=== PATIENT | female | born 1980 | race African-American/Black ===

== ENCOUNTER 2017-12-20 13:11 | Emergency (ER) | payer SELFPAY ==
--- NOTE | 2017-12-20 15:19 | RAD REPORT ---
EXAM DESCRIPTION: Arnie Single View12/20/2017 2:41 pm CLINICAL HISTORY: Chest pain COMPARISON: 2010 FINDINGS: The lungs appear clear of acute infiltrate. The heart is normal size IMPRESSION: No acute abnormalities displayed
[2017-12-20 15:26] LABS: Absolute Lymphocytes (CBC) 2.2 K/uL (0.7-4.9); Absolute Monocytes 0.8 K/uL (0.1-1.3); Absolute Neutrophil 5.3 K/uL (1.8-8.0); Basophils % 0.7 % (0-1.3); Eosinophils % 1.6 % (0-4.4); Hematocrit 40.9 % (36.0-45.0); Lymphocytes % 26.2 % (15.3-44.8); MCV 95.9 fL (80-100); MPV 9.6 fL (7.6-11.3); Monocytes % 9.4 % (3.3-12.3); RBC Red Blood Cell Count 4.26 M/uL (3.86-4.86)
[2017-12-20 15:37] LABS: BUN Blood Urea Nitrogen 11 mg/dL (7-18); Bicarbonate 27 mmol/L (21-32); Glucose Level 89 mg/dL (74-106); Potassium 3.5 mmol/L (3.5-5.1); Sodium Level 141 mmol/L (136-145); Troponin (Emerg Dept Use Only) < 0.02 ng/mL (0.0-0.045)
--- NOTE | 2017-12-20 15:39 | EKG ---
Test Date: 2017-12-20 Test Time: 13:38:41 Mri Specialist: EMILY MEASUREMENT RESULTS: Intervals: Rate: 69 NM: 152 QRSD: 82 QT: 396 QTc: 424 [place]: P: 44 NM: 152 QRS: 80 T: -48 INTERPRETIVE STATEMENTS: Normal sinus rhythm with sinus arrhythmia T wave abnormality, consider inferolateral ischemia Abnormal ECG Compared to ECG 12/02/2013 12:03:03 No significant changes Electronically Signed On 12-20-17 15:38:18 CDT by Vasquez Morton
--- NOTE | 2017-12-20 15:50 | EDPHYS ---
Physician Documentation [facility] Name: Jaky Mcconnell Age: 37 yrs Sex: Female : 1980 Arrival Date: 12/20/2017 Time: 13:14 Bed 16 Private MD: None, None ED Physician Naun Enriquez HPI: 12/20 19:36 This 37 yrs old Black Female presents to ER via Ambulatory with complaints of Chest gs Pain. 19:36 The patient or guardian reports chest pain that is located primarily in the anterior gs chest wall, right. The pain does not radiate. Associated signs and symptoms: Pertinent negatives: shortness of breath. The chest pain is described as sharp. Duration: The patient or guardian reports a single episode, that is still ongoing, but improving. Modifying factors: the symptoms are aggravated by deep breath. Severity of pain: At its worst the pain was moderate in the emergency department the pain has improved mildly. 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 - Social history:: Smoking status: Patient uses tobacco products, smokes one-half pack cigarettes per day. - Ebola Screening: : No symptoms or risks identified at this time. ROS: 19:36 All other systems are negative. gs Exam: 19:45 Head/Face: Normocephalic, atraumatic. Eyes: Pupils equal round and reactive to light, gs extra-ocular motions intact. Lids and lashes normal. Conjunctiva and sclera are non-icteric and not injected. Cornea within normal limits. Periorbital areas with no swelling, redness, or edema. ENT: Nares patent. No nasal discharge, no septal abnormalities noted. Tympanic membranes are normal and external auditory canals are clear. Oropharynx with no redness, swelling, or masses, exudates, or evidence of obstruction, uvula midline. Mucous membranes moist. Neck: Trachea midline, no thyromegaly or masses palpated, and no cervical lymphadenopathy. Supple, full range of motion without nuchal rigidity, or vertebral point tenderness. No Meningismus. Chest/axilla: Normal chest wall appearance and motion. Nontender with no deformity. No lesions are appreciated. Cardiovascular: Regular rate and rhythm with a normal S1 and S2. No gallops, murmurs, or rubs. Normal PMI, no JVD. No pulse deficits. Respiratory: Lungs have equal breath sounds bilaterally, clear to auscultation and percussion. No rales, rhonchi or wheezes noted. No increased work of breathing, no retractions or nasal flaring. Abdomen/GI: Soft, non-tender, with normal bowel sounds. No distension or tympany. No guarding or rebound. No evidence of tenderness throughout. Back: No spinal tenderness. No costovertebral tenderness. Full range of motion. Skin: Warm, dry with normal turgor. Normal color with no rashes, no lesions, and no evidence of cellulitis. MS/ Extremity: Pulses equal, no cyanosis. Neurovascular intact. Full, normal range of motion. Neuro: Awake and alert, GCS 15, oriented to person, place, time, and situation. Cranial nerves II-XII grossly intact. Motor strength 5/5 in all extremities. Sensory grossly intact. Cerebellar exam normal. Normal gait. 19:45 Constitutional: The patient appears alert, awake. 19:45 ECG was reviewed by the Attending Physician. Vital Signs: 13:44 BP 151 / 83; Pulse 67; Resp 16; Temp 97.4(TE); Pulse Ox 99% on R/A; Weight 96.62 kg; ph Height 5 ft. 8 in. (172.72 cm); Pain 8/10; 15:00 BP 153 / 83; Pulse 60; Resp 18; Pulse Ox 99% on R/A; ph 16:35 BP 162 / 92; Pulse 61; Resp 18; Temp 97.8; Pulse Ox 99% on R/A; Pain 6/10; ph 13:44 Body Mass Index 32.39 (96.62 kg, 172.72 cm) ph MDM: 14:06 Patient medically screened. 15:49 Counseling: I had a detailed discussion with the patient and/or guardian regarding: the gs historical points, exam findings, and any diagnostic results supporting the discharge/admit diagnosis, the presence of at least one elevated blood pressure reading (>120/80) during this emergency department visit, lab results, radiology results, the need for outpatient follow up. Special discussion: I have referred the patient to see his PCP for further evaluation of high blood pressure. 19:45 Differential diagnosis: coronary artery disease chest wall pain, pleurisy, pulmonary gs embolus. Data reviewed: vital signs, nurses notes. Response to treatment: the patient's symptoms have resolved after treatment, the patient's pain is gone, and as a result, I will discharge patient. 12/20 14:07 Order name: Basic Metabolic Panel; Complete Time: 15:45 gs 12/20 14:07 Order name: CBC with Diff; Complete Time: 15:45 gs 12/20 14:07 Order name: Troponin (emerg Dept Use Only); Complete Time: 15:45 gs 12/20 14:07 Order name: XRAY Chest (1 view); Complete Time: 15:20 gs 12/20 14:07 Order name: D-Dimer; Complete Time: 15:45 gs 12/20 13:47 Order name: EKG; Complete Time: 13:47 gs 12/20 13:47 Order name: EKG - Nurse/Tech; Complete Time: 13:49 gs 12/20 14:07 Order name: Cardiac monitoring; Complete Time: 15:38 gs 12/20 14:07 Order name: IV Saline Lock; Complete Time: 15:38 gs 12/20 14:07 Order name: Labs collected and sent; Complete Time: 15:38 gs 12/20 14:07 Order name: O2 Per Protocol; Complete Time: 15:38 gs 12/20 14:07 Order name: O2 Sat Monitoring; Complete Time: 15:38 gs EC:45 Rate is 69 beats/min. Rhythm is regular. TX interval is normal. QRS interval is normal. gs QT interval is normal. No Q waves. T waves are Inverted in leads II, III, aVF, V4, V5, V6. Clinical impression: Abnormal EKG without significant change. No change from previous ECG on December 02, 2013. Interpreted by me. Administered Medications: 06:30 Drug: Zofran 4 mg Route: PO; ph 16:33 Follow up: Response: No adverse reaction; Nausea is decreased ph 16:11 Drug: TORadol 30 mg Route: IVP; Site: left antecubital; ph 16:33 Follow up: Response: No adverse reaction; Pain is decreased ph Disposition: 12/20/17 15:49 Discharged to Home. Impression: Chest pain, unspecified. - Condition is Stable. - Discharge Instructions: Nonspecific Chest Pain, Managing Your Hypertension. - Work release form, Medication Reconciliation Form, Thank You Letter, Antibiotic Education, Prescription Opioid Use form. - Follow up: Private Physician; When: 2 - 3 days; Reason: Re-evaluation by your physician. Signatures: Dispatcher [employer] Judy Smart RN RN iw Lana Zarate RN RN ph Naun Enriquez MD MD gs Corrections: (The following items were deleted from the chart) 16:39 15:49 12/20/2017 15:49 Discharged to Home. Impression: Chest pain, unspecified. iw Condition is Stable. Forms are Medication Reconciliation Form, Thank You Letter, Antibiotic Education, Prescription Opioid Use. Follow up: Private Physician; When: 2 - 3 days; Reason: Re-evaluation by your physician. gs
--- NOTE | 2017-12-20 15:50 | ER ---
Nurse's Notes [facility] Name: Jaky Mcconnell Age: 37 yrs Sex: Female : 1980 Arrival Date: 12/20/2017 Time: 13:14 Bed 16 Private MD: None, None Diagnosis: Chest pain, unspecified Presentation: 12/20 13:43 Presenting complaint: Patient states: Reports R sided chest pain that began at around ph 1030, worse w/ movement and deep breathing, denies N/V. Transition of care: patient was not received from another setting of care. Onset of symptoms was December 20, 2017. Risk Assessment: Do you want to hurt yourself or someone else? Patient reports no desire to harm self or others. Initial Sepsis Screen: Does the patient meet any 2 criteria? No. Patient's initial sepsis screen is negative. Does the patient have a suspected source of infection? No. Patient's initial sepsis screen is negative. Care prior to arrival: None. 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 - Social history:: Smoking status: Patient uses tobacco products, smokes one-half pack cigarettes per day. - Ebola Screening: : No symptoms or risks identified at this time. Screenin:13 Abuse screen: Denies threats or abuse. Denies injuries from another. Nutritional ph screening: No deficits noted. Tuberculosis screening: No symptoms or risk factors identified. Fall Risk None identified. Assessment: 14:00 General: Appears in no apparent distress. uncomfortable, obese, well groomed, Behavior ph is calm, cooperative, appropriate for age. Pain: Complains of pain in anterior aspect of right upper chest and right breast Pain does not radiate. Pain currently is 8 out of 10 on a pain scale. Pain began at 1030. Neuro: Level of Consciousness is awake, alert, obeys commands, Oriented to person, place, time, situation. Cardiovascular: Reports chest pain, shortness of breath, Denies lightheadedness, nausea, vomiting, Capillary refill < 3 seconds Patient's skin is warm and dry. Rhythm is regular Chest pain is located in right anterior chest wall is aggravated by activity, breathing. Respiratory: Airway is patent Respiratory effort is even, unlabored, Respiratory pattern is regular, symmetrical, Denies pain with respiration, pain with cough, pain with movement. Derm: Skin is intact, is healthy with good turgor, Skin is pink, warm \T\ dry. Musculoskeletal: Circulation, motion, and sensation intact. Range of motion: intact in all extremities. 15:15 Reassessment: Patient appears in no apparent distress at this time. Patient and/or ph family updated on plan of care and expected duration. Pain level reassessed. Patient is alert, oriented x 3, equal unlabored respirations, skin warm/dry/pink. Pt resting quietly, awaiting lab results. 16:25 Reassessment: Patient appears in no apparent distress at this time. Patient and/or ph family updated on plan of care and expected duration. Pain level reassessed. Patient is alert, oriented x 3, equal unlabored respirations, skin warm/dry/pink. Upon d/c pt began to c/o nausea, ERP notified, see MAR. Vital Signs: 13:44 BP 151 / 83; Pulse 67; Resp 16; Temp 97.4(TE); Pulse Ox 99% on R/A; Weight 96.62 kg; ph Height 5 ft. 8 in. (172.72 cm); Pain 8/10; 15:00 BP 153 / 83; Pulse 60; Resp 18; Pulse Ox 99% on R/A; ph 16:35 BP 162 / 92; Pulse 61; Resp 18; Temp 97.8; Pulse Ox 99% on R/A; Pain 6/10; ph 13:44 Body Mass Index 32.39 (96.62 kg, 172.72 cm) ph ED Course: 13:14 Patient arrived in ED. mr 13:14 None, None is Private Physician. mr 13:38 Naun Enriquez MD is Attending Physician. gs 13:42 Lana Zarate, RYLAN is Primary Nurse. ph 13:44 Triage completed. ph 13:45 Arm band placed on. ph 14:06 EKG done, by hospital laboratory technician. reviewed by Naun Enriquez MD. at1 14:37 X-ray completed. Portable x-ray completed in exam room. Patient tolerated procedure ml well. 14:41 XRAY Chest (1 view) In Process Unspecified. EDMS 14:45 Inserted saline lock: 22 gauge in left antecubital area, using aseptic technique. Blood ph collected. 15:14 Patient has correct armband on for positive identification. Bed in low position. Call ph light in reach. Side rails up X 1. quality assurance monitor body on. Pulse ox on. NIBP on. Warm blanket given. 15:14 Patient maintains SpO2 saturation greater than 95% on room air. ph 16:36 No provider procedures requiring assistance completed. IV discontinued, intact, ph bleeding controlled, No redness/swelling at site. Pressure dressing applied. Administered Medications: 06:30 Drug: Zofran 4 mg Route: PO; ph 16:33 Follow up: Response: No adverse reaction; Nausea is decreased ph 16:11 Drug: TORadol 30 mg Route: IVP; Site: left antecubital; ph 16:33 Follow up: Response: No adverse reaction; Pain is decreased ph Outcome: 15:49 Discharge ordered by . jalen 16:36 Discharged to home ambulatory. ph 16:36 Condition: good 16:36 Discharge instructions given to patient, Instructed on discharge instructions, follow ph up and referral plans. Demonstrated understanding of instructions, follow-up care. 16:39 Patient left the ED. iw Signatures: Dispatcher [employer] Mikala Molina Irene, RN RYLAN iw [place] Amanda, multimedia manager EKG Tat1 Lana Zarate RN RN ph EnriquezNaun da silva MD MD gs
[2017-12-20] MEDS ORDERED: KETOROLAC 30 MG/ML INJ ONE (16:11)
[2017-12-20] MEDS ORDERED: ONDANSETRON 4 MG (ODT) TAB ONE (16:29)
[2017-12-20 16:57] VITALS: O2SAT 99
[2017-12-20 16:59] VITALS: BP 162/92; TEMP 97.8
== END 2017-12-20 16:39 | disposition home or self-care (01) ==
LOC: ER 13:11
DX: R07.9 Chest pain, unspecified (principal); Z88.6 Allergy status to analgesic agent
CPT/HCPCS: 36415; 71045; 80048; 84484; 85025; 85379; 93005; 96374; 99285

== ENCOUNTER 2019-01-22 11:37 | Emergency (ER) | payer SELFPAY ==
--- NOTE | 2019-01-22 12:48 | RAD REPORT ---
EXAM DESCRIPTION: RAD - Chest Single View - 01/22/2019 12:33 pm CLINICAL HISTORY: CHEST PAIN Chest pain. COMPARISON: Chest Single View dated 12/20/2017; CHEST PA AND LAT 2 VIEW dated 01/03/2011 FINDINGS: Portable technique limits examination quality. The lungs are grossly clear. The heart is normal in size. No displaced fractures. IMPRESSION: No acute intrathoracic process suspected.
[2019-01-22 12:52] LABS: Absolute Lymphocytes (CBC) 1.8 K/uL (0.7-4.9); Basophils % 0.8 % (0-1.3); Lymphocytes % 21.8 % (15.3-44.8); RBC Red Blood Cell Count 4.28 M/uL (3.86-4.86)
[2019-01-22 12:54] LABS: Protime INR 1.05
[2019-01-22 13:05] LABS: ALT/SGPT 27 U/L (12-78); AST/SGOT 16 U/L (15-37); Albumin 3.7 g/dL (3.4-5.0); Alkaline Phosphatase 85 U/L (45-117); BUN Blood Urea Nitrogen 14 mg/dL (7-18); Bicarbonate 27 mmol/L (21-32); Bilirubin Direct < 0.1 mg/dL (0-0.2); Bilirubin Total 0.4 mg/dL (0.2-1.0); Glucose Level 80 mg/dL (74-106); Protein, Total 7.4 g/dL (6.4-8.2); Sodium Level 144 mmol/L (136-145); Troponin (Emerg Dept Use Only) < 0.02 ng/mL (0.0-0.045)
--- NOTE | 2019-01-22 13:43 | ER ---
Nurse's Notes [facility] Name: Jaky Mcconnell Age: 38 yrs Sex: Female : 1980 Arrival Date: 01/22/2019 Time: 11:44 Bed 16 Private MD: Diagnosis: Chest pain, unspecified Presentation: 01/22 11:55 Presenting complaint: Patient states: "I've been having chest pains for the longest, aj1 but today every time I move its a sharp pain and it stays for like 3 minutes and then it goes away but if I move again it comes back" Patient reports that she has been having these chest pains since her nephew in May. Transition of care: patient was not received from another setting of care. Onset of symptoms was May 2018. Risk Assessment: Do you want to hurt yourself or someone else? Patient reports no desire to harm self or others. Initial Sepsis Screen: Does the patient meet any 2 criteria? No. Patient's initial sepsis screen is negative. Does the patient have a suspected source of infection? No. Patient's initial sepsis screen is negative. Care prior to arrival: None. 11:55 Method Of Arrival: Ambulatory aj1 11:55 Acuity: JONNA 3 aj1 Triage Assessment: 11:58 General: Appears in no apparent distress. comfortable, Behavior is calm, cooperative, aj1 appropriate for age. Pain: Pain currently is 5 out of 10 on a pain scale. Aggravated by repositioning. Neuro: Level of Consciousness is awake, alert, obeys commands. Cardiovascular: Patient's skin is warm and dry. Respiratory: Airway is patent Respiratory effort is even, unlabored, Respiratory pattern is regular, symmetrical. 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 - Social history:: Smoking status: Patient uses tobacco products, smokes one-half pack cigarettes per day. - Ebola Screening: : Patient denies travel to an Ebola-affected area in the 21 days before illness onset. Screenin:25 Abuse screen: Denies threats or abuse. Nutritional screening: No deficits noted. em Tuberculosis screening: No symptoms or risk factors identified. Fall Risk None identified. Assessment: 12:25 General: Appears in no apparent distress. comfortable, Behavior is calm, cooperative, em Denies fever. Pain: Complains of pain in chest Pain does not radiate. Quality of pain is described as pressure, Pain began May. Neuro: Level of Consciousness is awake, alert, obeys commands, Oriented to person, place, time, situation, Appropriate for age. Cardiovascular: Heart tones S1 S2 present Capillary refill < 3 seconds Patient's skin is warm and dry. Respiratory: Airway is patent Respiratory effort is even, unlabored, Respiratory pattern is regular, symmetrical, Breath sounds are clear bilaterally. Denies cough. GI: Patient currently denies nausea, vomiting. Derm: Skin is intact, is healthy with good turgor, Skin is pink, warm \\T\\ dry. Musculoskeletal: Capillary refill < 3 seconds, Range of motion: intact in all extremities. 13:00 Reassessment: Patient appears in no apparent distress at this time. Patient and/or em family updated on plan of care and expected duration. Pain level reassessed. Patient is alert, oriented x 3, equal unlabored respirations, skin warm/dry/pink. 14:00 Reassessment: Patient appears in no apparent distress at this time. Patient and/or em family updated on plan of care and expected duration. Pain level reassessed. Patient is alert, oriented x 3, equal unlabored respirations, skin warm/dry/pink. Patient denies pain at this time. Patient states feeling better. Patient states symptoms have improved. Vital Signs: 11:58 BP 146 / 98; Pulse 76; Resp 18; Temp 97.0; Pulse Ox 100% on R/A; Weight 96.62 kg (R); aj1 Height 5 ft. 8 in. (172.72 cm) (R); Pain 5/10; 13:00 BP 156 / 94; Pulse 73; Resp 18; Pulse Ox 99% on R/A; Pain 1/10; em 11:58 Body Mass Index 32.39 (96.62 kg, 172.72 cm) aj1 ED Course: 11:44 Patient arrived in ED. mr 11:57 Triage completed. aj1 11:58 Arm band placed on Patient placed in an exam room. aj1 11:59 Jayden Clarke NP is PHCP. pm1 11:59 Alberto Wallace MD is Attending Physician. pm1 12:02 Vance Arredondo LVN is Primary Nurse. em 12:25 Patient has correct armband on for positive identification. Placed in gown. Bed in low em position. Call light in reach. Adult w/ patient. personnel monitor on. Pulse ox on. NIBP on. 12:25 Initial lab(s) drawn, by me, sent to lab. Inserted saline lock: 22 gauge in left em antecubital area, using aseptic technique. Blood collected. Patient maintains SpO2 saturation greater than 95% on room air. 12:33 XRAY Chest (1 view) In Process Unspecified. EDMS 14:10 No provider procedures requiring assistance completed. IV discontinued, intact, em bleeding controlled, No redness/swelling at site. Pressure dressing applied. Administered Medications: 14:00 Drug: predniSONE 60 mg Route: PO; em Outcome: 13:42 Discharge ordered by MD. pm1 14:10 Discharged to home ambulatory, with family. em 14:10 Condition: good 14:10 Discharge instructions given to patient, family, Instructed on discharge instructions, follow up and referral plans. no drinking with medication, no driving heavy equipment, medication usage, Demonstrated understanding of instructions, follow-up care, medications, Prescriptions given X 2. 14:11 Patient left the ED. em Signatures: Dispatcher [employer] Mariah Claros RN RN aj1 Cynthia Orellana mr Vance Arredondo LVN LVN em Jayden Clarke NP [employer] pm1
--- NOTE | 2019-01-22 13:43 | EDPHYS ---
Physician Documentation [facility] Name: Jaky Mcconnell Age: 38 yrs Sex: Female : 1980 Arrival Date: 01/22/2019 Time: 11:44 Bed 16 Private MD: ED Physician Alberto Wallace HPI: 01/22 13:05 This 38 yrs old Black Female presents to ER via Ambulatory with complaints of Chest pm1 Pain. 13:05 The patient or guardian reports chest pain that is located primarily in the anterior pm1 aspect of left upper chest. The pain does not radiate. Associated signs and symptoms: Pertinent negatives: abdominal pain, cough, diaphoresis, dizziness, headache, nausea, shortness of breath, vomiting. The chest pain is described as sharp. Duration: The patient or guardian reports multiple episodes, that have now resolved, the episodes last approximately 3 minute(s). Modifying factors: the symptoms are aggravated by deep breath, emotionally stressful situations, ever since of grandson in May of this year. Severity of pain: in the emergency department the pain has resolved. The patient has not experienced similar symptoms in the past. Chest pain today onset this AM. 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 - Social history:: Smoking status: Patient uses tobacco products, smokes one-half pack cigarettes per day. - Ebola Screening: : Patient denies travel to an Ebola-affected area in the 21 days before illness onset. ROS: 13:05 Constitutional: Negative for fever, chills, and weight loss, Eyes: Negative for injury, pm1 pain, redness, and discharge, ENT: Negative for injury, pain, and discharge, Neck: Negative for injury, pain, and swelling. 13:05 Respiratory: Negative for shortness of breath, cough, wheezing, and pleuritic chest pain, Abdomen/GI: Negative for abdominal pain, nausea, vomiting, diarrhea, and constipation, Back: Negative for injury and pain, MS/Extremity: Negative for injury and deformity, Skin: Negative for injury, rash, and discoloration, Neuro: Negative for headache, weakness, numbness, tingling, and seizure. 13:05 Cardiovascular: Positive for chest pain, Negative for edema, palpitations. Exam: 13:05 Constitutional: This is a well developed, well nourished patient who is awake, alert, pm1 and in no acute distress. Head/Face: Normocephalic, atraumatic. Neck: Trachea midline, no thyromegaly or masses palpated, and no cervical lymphadenopathy. Supple, full range of motion without nuchal rigidity, or vertebral point tenderness. No Meningismus. Cardiovascular: Regular rate and rhythm with a normal S1 and S2. No gallops, murmurs, or rubs. Normal PMI, no JVD. No pulse deficits. Respiratory: Lungs have equal breath sounds bilaterally, clear to auscultation and percussion. No rales, rhonchi or wheezes noted. No increased work of breathing, no retractions or nasal flaring. Abdomen/GI: Soft, non-tender, with normal bowel sounds. No distension or tympany. No guarding or rebound. No evidence of tenderness throughout. Back: No spinal tenderness. No costovertebral tenderness. Full range of motion. Skin: Warm, dry with normal turgor. Normal color with no rashes, no lesions, and no evidence of cellulitis. MS/ Extremity: Pulses equal, no cyanosis. Neurovascular intact. Full, normal range of motion. 13:05 Chest/axilla: Inspection: normal, Palpation: tenderness, of the focal point anterior aspect of left upper chest, that totally reproduces the patient's complaints, also reproduced with deep breathing in the same area. Vital Signs: 11:58 BP 146 / 98; Pulse 76; Resp 18; Temp 97.0; Pulse Ox 100% on R/A; Weight 96.62 kg (R); aj1 Height 5 ft. 8 in. (172.72 cm) (R); Pain 5/10; 13:00 BP 156 / 94; Pulse 73; Resp 18; Pulse Ox 99% on R/A; Pain 1/10; em 11:58 Body Mass Index 32.39 (96.62 kg, 172.72 cm) aj1 MDM: 12:00 Patient medically screened. pm1 13:40 Data reviewed: vital signs. Data interpreted: Pulse oximetry: on room air is 100 %. pm1 Interpretation: normal. Counseling: I had a detailed discussion with the patient and/or guardian regarding: the historical points, exam findings, and any diagnostic results supporting the discharge/admit diagnosis, lab results, radiology results, the need for outpatient follow up, to return to the emergency department if symptoms worsen or persist or if there are any questions or concerns that arise at home. 14:00 ED course: Patient with possible pleurisy and anxiety related to stress of of pm1 grandson. Will give the patient steroids since she cannot take NSAIDs and ativan for anxiety and grieving. 01/22 12:01 Order name: Basic Metabolic Panel; Complete Time: 13:19 pm1 01/22 12:01 Order name: CBC with Diff; Complete Time: 13:02 pm1 01/22 12:01 Order name: LFT's; Complete Time: 13:19 pm1 01/22 12:01 Order name: Magnesium; Complete Time: 13:19 pm1 01/22 12:01 Order name: PT-INR; Complete Time: 13:02 pm1 01/22 12:01 Order name: Troponin (emerg Dept Use Only); Complete Time: 13:19 pm1 01/22 12:01 Order name: XRAY Chest (1 view); Complete Time: 13:02 pm1 01/22 12:01 Order name: EKG; Complete Time: 12:01 pm1 01/22 12:01 Order name: Cardiac monitoring; Complete Time: 12:25 pm1 01/22 12:01 Order name: EKG - Nurse/Tech; Complete Time: 12:25 pm1 01/22 12:01 Order name: IV Saline Lock; Complete Time: 12:25 pm01/22 13:58 Order name: Urine Dipstick--Ancillary (enter results) nc 01/22 13:58 Order name: Urine --Ancillary (enter results) nc 01/22 12:01 Order name: Labs collected and sent; Complete Time: 12:25 pm1 01/22 12:01 Order name: O2 Per Protocol; Complete Time: 12:25 pm1 01/22 12:01 Order name: O2 Sat Monitoring; Complete Time: 12:25 pm01/22 12:01 Order name: Urine Test (obtain specimen); Complete Time: 14:00 pm1 Administered Medications: 14:00 Drug: predniSONE 60 mg Route: PO; em Disposition: 14:52 Co-signature as Attending Physician, Alberto Wallace MD. rn Disposition: 01/22/19 13:42 Discharged to Home. Impression: Chest pain, unspecified. - Condition is Stable. - Discharge Instructions: Nonspecific Chest Pain, Stress and Stress Management. - Prescriptions for Medrol (Fam) 4 mg Oral Tablets, Dose Pack - take 1 tablet by ORAL route as directed - follow package instructions; 1 packet. Ativan 0.5 mg Oral Tablet - take 1 tablet by ORAL route every 8 hours As needed; 10 tablet. - Work release form, Family Work Release, Medication Reconciliation Form, Thank You Letter, Antibiotic Education, Prescription Opioid Use form. - Follow up: Emergency Department; When: As needed; Reason: Worsening of condition. Follow up: Private Physician; When: 2 - 3 days; Reason: Recheck today's complaints, Continuance of care, Re-evaluation by your physician. - Problem is new. - Symptoms have improved. Signatures: Dispatcher [employer] Mariah Claros RN RN aj1 Vance Arredondo, CONTINUOUS IMPROVEMENT COORDINATOR CONTINUOUS IMPROVEMENT COORDINATOR Alberto Wade MD MD rn Marinas, Patrick, THAO PUTTYING AND CALKING SUPERVISOR pm1 Corrections: (The following items were deleted from the chart) 14:11 13:42 01/22/2019 13:42 Discharged to Home. Impression: Chest pain, unspecified. em Condition is Stable. Forms are Medication Reconciliation Form, Thank You Letter, Antibiotic Education, Prescription Opioid Use. Follow up: Emergency Department; When: As needed; Reason: Worsening of condition. Follow up: Private Physician; When: 2 - 3 days; Reason: Recheck today's complaints, Continuance of care, Re-evaluation by your physician. Problem is new. Symptoms have improved. pm1 17:35 13:05 Modifying factors: the symptoms are aggravated by emotionally stressful pm1 situations, ever since of grandson in May of this year. pm1
[2019-01-22] MEDS ORDERED: predniSONE 20 MG TAB ONE (13:53)
[2019-01-22 14:23] VITALS: TEMP 97
[2019-01-22 14:28] VITALS: BP 156/94; O2SAT 99
[2019-01-22 14:30] LABS: Urine Blood NEGATIVE (NEG); Urine Glucose NEGATIVE (NEG); Urine Protein NEGATIVE (NEG)
--- NOTE | 2019-01-23 07:52 | EKG ---
Test Date: 2019-01-22 Test Time: 12:24:41 Wash Rack Operator: KATHRINE MEASUREMENT RESULTS: Intervals: Rate: 64 TN: 154 QRSD: 80 QT: 384 QTc: 396 Rodman: P: 42 TN: 154 QRS: 84 T: -54 INTERPRETIVE STATEMENTS: Normal sinus rhythm T wave abnormality, consider inferolateral ischemia Abnormal ECG Compared to ECG 12/20/2017 13:38:41 Sinus arrhythmia no longer present T-wave abnormality still present Possible ischemia still present Electronically Signed On 01-23-19 07:51:51 CDT by Vasquez Morton
== END 2019-01-22 14:11 | disposition home or self-care (01) ==
LOC: ER 11:37
DX: R07.9 Chest pain, unspecified (principal); F17.210 Nicotine dependence, cigarettes, uncomplicated; I10 Essential (primary) hypertension; Z88.6 Allergy status to analgesic agent
CPT/HCPCS: 36415; 71045; 80048; 80076; 81003; 81025; 83735; 84484; 85025; 85610; 93005; 99285; J7512

== ENCOUNTER 2020-08-03 18:41 | Emergency (ER) | payer SELFPAY ==
[2020-08-03] MEDS ORDERED: PHENYLEPHRINE 0.5% NOSE 15ML NAS ONE (20:19)
--- NOTE | 2020-08-03 21:34 | EDPHYS ---
Physician Documentation [facility] Name: Jaky Mcocnnell Age: 40 yrs Sex: Female : 1980 Arrival Date: 08/03/2020 Time: 18:45 Bed 5 Private MD: ED Physician Octavio Carbajal HPI: 08/03 19:36 This 40 yrs old Black Female presents to ER via EMS with complaints of Nose Bleed. pm1 19:36 The patient presents with a nose bleed, occurred from an unknown cause, that is pm1 continuous causative factors include: unknown, and the bleeding is not resolved and continues in ER. Onset: The symptoms/episode began/occurred. 19:36 Modifying factors: The symptoms are alleviated by nothing. Associated signs and pm1 symptoms: Loss of consciousness: the patient experienced no loss of consciousness, Pertinent negatives: chest pain, shortness of breath. Severity of symptoms: in the emergency department the symptoms are unchanged. The patient has not experienced similar symptoms in the past. The patient has not recently seen a physician. Historical: - Allergies: 18:56 Aspirin; em - PMHx: 18:56 Hypertension; em - PSHx: 18:56 ; em - Immunization history:: Adult Immunizations up to date. - Social history:: Smoking status: Patient reports the use of cigarette tobacco products, smokes one pack cigarettes per day. ROS: 19:36 Constitutional: Negative for fever, chills, and weight loss, Eyes: Negative for injury, pm1 pain, redness, and discharge. 19:36 Cardiovascular: Negative for chest pain, palpitations, and edema, Respiratory: Negative for shortness of breath, cough, wheezing, and pleuritic chest pain, Abdomen/GI: Negative for abdominal pain, nausea, vomiting, diarrhea, and constipation, Back: Negative for injury and pain, MS/Extremity: Negative for injury and deformity, Skin: Negative for injury, rash, and discoloration, Neuro: Negative for headache, weakness, numbness, tingling, and seizure. 19:36 ENT: Positive for nose bleed, Negative for sinus congestion, sinus pain, sore throat. Exam: 19:36 Constitutional: This is a well developed, well nourished patient who is awake, alert, pm1 and in no acute distress. Head/Face: Normocephalic, atraumatic. Eyes: Pupils equal round and reactive to light, extra-ocular motions intact. Lids and lashes normal. Conjunctiva and sclera are non-icteric and not injected. Cornea within normal limits. Periorbital areas with no swelling, redness, or edema. 19:36 Skin: Warm, dry with normal turgor. Normal color with no rashes, no lesions, and no evidence of cellulitis. MS/ Extremity: Pulses equal, no cyanosis. Neurovascular intact. Full, normal range of motion. 19:36 ENT: Nose: bleeding, is noted from both nares, anterior bleeding from left nare at 3 o'clock and anterior bleeding from right nare at 4 o'clock . 19:36 Cardiovascular: Exam negative for acute changes, Rate: normal, Rhythm: regular, Pulses: no pulse deficits are appreciated. 19:36 Cardiovascular: normotensive on monitor. 19:36 Respiratory: Exam negative for acute changes, respiratory distress, shortness of breath. 19:36 Neuro: Exam negative for acute changes, Orientation: is normal, Mentation: is normal, Motor: is normal, moves all fours. Vital Signs: 18:53 BP 121 / 80; Pulse 83; Resp 18; Temp 98.3(O); Pulse Ox 100% on R/A; Weight 97.52 kg; em Height 5 ft. 4 in. (162.56 cm); Pain 0/10; 20:59 BP 119 / 83; Pulse 76; Resp 16 S; Pulse Ox 100% on R/A; ad5 21:30 BP 120 / 80; Pulse 70; Resp 18; Pulse Ox 98% ; ea 18:53 Body Mass Index 36.90 (97.52 kg, 162.56 cm) em MDM: 19:31 Patient medically screened. pm1 21:10 ED course: Patient with nasal bleeding continuing from the left side despite pressure pm1 and yaya synephrine for the past 1 hour. Placed 4.5 rhino rocket to left nare and bleeding stopped. 21:31 ED course: Observed patient after placing left rhino rocket to see if right nare pm1 bleeding would stop. Patient's right nare with continued bleeding. Placed 4.5 rhino rocket to right nare and bleeding has been stopped. 21:32 Data reviewed: vital signs. Data interpreted: Pulse oximetry: on room air is 100 %. pm1 Interpretation: normal. 21:32 Counseling: I had a detailed discussion with the patient and/or guardian regarding: the pm1 historical points, exam findings, and any diagnostic results supporting the discharge/admit diagnosis, the need for outpatient follow up, for definitive care, an ENT specialist, to return to the emergency department if symptoms worsen or persist or if there are any questions or concerns that arise at home. Administered Medications: 20:14 Drug: Yaya-Synephrine (phenylephrine) [place] 0.5 % 2 sprays Route: Intranasal; Site: both ea nares; 21:42 Drug: traMADol 50 mg Route: PO; ea 21:47 Follow up: Response: Medication administered at discharge. ea Disposition: 08/03/20 21:33 Discharged to Home. Impression: Epistaxis. - Condition is Stable. - Discharge Instructions: Nosebleed, Adult. - Prescriptions for Augmentin 875- 125 mg Oral Tablet - take 1 tablet by ORAL route every 12 hours for 10 days; 20 tablet. Tramadol 50 mg Oral Tablet - take 1 tablet by ORAL route every 8 hours as needed; 12 tablet. - Work release form, Medication Reconciliation Form, Thank You Letter, Antibiotic Education, Prescription Opioid Use form. - Follow up: Emergency Department; When: As needed; Reason: Worsening of condition. Follow up: Macy Tang MD; When: 2 - 3 days; Reason: Recheck today's complaints, Continuance of care, Re-evaluation by your physician. - Problem is new. - Symptoms have improved. Addendum: 08/05/2020 09:59 Co-signature as Attending Physician, Octavio Carbajal MD I agree with the assessment and c bell plan of care. Signatures: Octavio Carbajal MD MD cha Munoz, Edgar, RN RN Jayden Church NP RECOVERY [employer]ATE pm1 Mariah Clarke RN RN ea Corrections: (The following items were deleted from the chart) 08/03 21:50 21:33 08/03/2020 21:33 Discharged to Home. Impression: Epistaxis. Condition is Stable. ea Forms are Medication Reconciliation Form, Thank You Letter, Antibiotic Education, Prescription Opioid Use. Follow up: Emergency Department; When: As needed; Reason: Worsening of condition. Follow up: Macy Tang; When: 2 - 3 days; Reason: Recheck today's complaints, Continuance of care, Re-evaluation by your physician. Problem is new. Symptoms have improved. pm1
--- NOTE | 2020-08-03 21:34 | ER ---
Nurse's Notes [facility] Name: Jaky Mcconnell Age: 40 yrs Sex: Female : 1980 Arrival Date: 08/03/2020 Time: 18:45 Bed 5 Private MD: Diagnosis: Epistaxis Presentation: 08/03 18:53 Chief complaint: EMS states: nosebleed that started at 10 AM, denies being on blood em thinners, nose clamp applied by EMS, bloody drainage noted, denies trauma to the face. Coronavirus screen: Client denies travel out of the [place] in the last 14 days. Ebola Screen: Patient negative for fever greater than or equal to 101.5 degrees Fahrenheit, and additional compatible Ebola Virus Disease symptoms Patient denies exposure to infectious person. Patient denies travel to an Ebola-affected area in the 21 days before illness onset. No symptoms or risks identified at this time. Initial Sepsis Screen: Does the patient meet any 2 criteria? No. Patient's initial sepsis screen is negative. Does the patient have a suspected source of infection? No. Patient's initial sepsis screen is negative. Risk Assessment: Do you want to hurt yourself or someone else? Patient reports no desire to harm self or others. Onset of symptoms was August 03, 2020. 18:53 Method Of Arrival: EMS: [facility] em 18:53 Acuity: JONNA 3 em Historical: - Allergies: 18:56 Aspirin; em - PMHx: 18:56 Hypertension; em - PSHx: 18:56 ; em - Immunization history:: Adult Immunizations up to date. - Social history:: Smoking status: Patient reports the use of cigarette tobacco products, smokes one pack cigarettes per day. Screenin:56 Abuse screen: Denies threats or abuse. Nutritional screening: No deficits noted. em Tuberculosis screening: No symptoms or risk factors identified. Fall Risk None identified. Assessment: 18:57 General: Appears in no apparent distress. comfortable, Behavior is calm, cooperative, em agitated. Pain: Denies pain. Neuro: Level of Consciousness is awake, alert, obeys commands, Oriented to person, place, time, situation, Appropriate for age. Cardiovascular: Capillary refill < 3 seconds Patient's skin is warm and dry. Respiratory: Airway is patent Respiratory effort is even, unlabored, Respiratory pattern is regular, symmetrical. EENT: Nares with drainage noted bilaterally bloody. Derm: Skin is intact, is healthy with good turgor, Skin is pink, warm \T\ dry. Musculoskeletal: Capillary refill < 3 seconds, Range of motion: intact in all extremities. 20:59 Reassessment: No changes from previously documented assessment. Patient and/or family ad5 updated on plan of care and expected duration. Pain level reassessed. Patient is alert, oriented x 3, equal unlabored respirations, skin warm/dry/pink. Patient states symptoms have improved. 21:47 Reassessment: Patient and/or family updated on plan of care and expected duration. Pain ea level reassessed. Patient is alert, oriented x 3, equal unlabored respirations, skin warm/dry/pink. Discharge instruction given to patient verbalized the understanding of instruction. pt left ED accompanied by mother, tolerating well. Vital Signs: 18:53 BP 121 / 80; Pulse 83; Resp 18; Temp 98.3(O); Pulse Ox 100% on R/A; Weight 97.52 kg; em Height 5 ft. 4 in. (162.56 cm); Pain 0/10; 20:59 BP 119 / 83; Pulse 76; Resp 16 S; Pulse Ox 100% on R/A; ad5 21:30 BP 120 / 80; Pulse 70; Resp 18; Pulse Ox 98% ; ea 18:53 Body Mass Index 36.90 (97.52 kg, 162.56 cm) em ED Course: 18:45 Patient arrived in ED. ss 18:56 Triage completed. em 18:56 Arm band placed on. em 18:56 Patient has correct armband on for positive identification. Bed in low position. Call em light in reach. Pulse ox on. NIBP on. 19:31 Jayden Clarke, THAO is PHCP. pm1 19:31 Octavio Carbajal MD is Attending Physician. pm1 20:58 Swapnil Brown is Primary Nurse. ad5 21:33 Macy Tang MD is Referral Physician. pm1 21:45 Assist provider with nosebleed control using Afrin sprays, rhino rocket placed for ea extensive packing needs, Bleeding from both nares. Set up for procedure. Performed by Jayden Clarke NP Bleeding stopped. Patient tolerated well. Patient did not have IV access during this emergency room visit. Administered Medications: 20:14 Drug: Yaya-Synephrine (phenylephrine) [place] 0.5 % 2 sprays Route: Intranasal; Site: both ea nares; 21:42 Drug: traMADol 50 mg Route: PO; ea 21:47 Follow up: Response: Medication administered at discharge. ea Outcome: 21:33 Discharge ordered by MD. pm1 21:46 Discharged to home ambulatory, with family. ea 21:46 Condition: stable 21:46 Discharge instructions given to patient, Instructed on discharge instructions, follow up and referral plans. medication usage, Demonstrated understanding of instructions, follow-up care, medications, Prescriptions given X 2. 21:50 Patient left the ED. ea Signatures: Vance Arredondo RN Lucy Morgan RN RN ss Marinas, Patrick, APPLICATION SECURITY ENGINEER APPLICATION SECURITY ENGINEER pm1 Mariah Clarke RN RN ea Davidson, Andrea ad5
[2020-08-03] MEDS ORDERED: TRAMADOL HCL 50 MG TAB ONE (21:57)
[2020-08-04 03:03] VITALS: TEMP 98.3
[2020-08-04 03:05] VITALS: BP 120/80; O2SAT 98
== END 2020-08-03 21:50 | disposition home or self-care (01) ==
LOC: ER 18:41
PROC: 2Y41X5Z Packing of Nasal Region using Packing Material (ICD-10-PCS; principal; 2020-08-03)
DX: R04.0 Epistaxis (principal); I10 Essential (primary) hypertension; F17.210 Nicotine dependence, cigarettes, uncomplicated
CPT/HCPCS: 30901; 99284

== ENCOUNTER 2022-02-25 21:32 | Emergency (ER) | payer SELFPAY ==
--- OUTSIDE RECORDS SUMMARY | 2022-02-25 21:35 | XMS REPORT | Continuity of Care Document ---
:1980 [facility] t Address [address] [place] [address] Care Team Providers Name Role Phone Pcp, Patient Does Not Have A Primary Care Physician [phone] MARY WYMAN Attending Clinician Unavailable Alley Mills Attending Clinician Mary Wyman PA-C Attending Clinician HYACINTH CHIN Attending Clinician Unavailable ALLEY MITCHELL Attending Clinician Unavailable Doctor Unassigned, [place] Attending Clinician Unavailable 2, Adc Lab Attending Clinician Unavailable Hyacinth Chin MD Attending Clinician Lab, Ang - Db Attending Clinician Unavailable AUGUSTINE JARAMILLO Attending Clinician Unavailable Augustine Thomas Attending Clinician Bismark Chilel MD Attending Clinician BISMARK CHILEL Attending Clinician Unavailable [facility] Attending Clinician Unavailable Vikas Fleming MD Attending Clinician VIKAS FLEMING Attending Clinician Unavailable Xneia Perez Attending Clinician RUBEN TIAN Attending Clinician Unavailable Ruben Tian MD Attending Clinician Cj Cotto MD Attending Clinician [phone] Jakub Lewis MD Attending Clinician Albina Yañez Attending Clinician ALBINA PRICE Attending Clinician Unavailable Juan Antonio Early Attending Clinician ALLEY MITCHELL Admitting Clinician Unavailable RUBEN TIAN Admitting Clinician Unavailable Ruben Tian MD Admitting Clinician Payers Payer Name Policy Type Policy Number Effective Date Expiration Date S preet VELA BCBS BLUE [id number] 2021 ADVANTAGE O 00:00:00 MIRIAN HERNANDEZETTER FROM [id number] 2020 [facility] 00:00:00 [id number] 2021 COMM 00:00:00 Problems Condition Condition Condition Status Onset Resolution Last Treating Co mments Source Name Details Category Date Date Treatment Clinician Date Obesity Obesity Disease Active Univers (BMI (BMI 5-10 ity of 30-39.9) 30-39.9) 00:00: [address] Epistaxis Epistaxis Disease Active Uni vers 5-09 ity of 00:00: [address] VENTRICULO VENTRICUL Diagnosis Active 2014-12-28 JULISSA SmithDEBBIE, 12-24 10:59:00 l ECHOGENIC ECHOGENIC 00:00: Herm swapna FOCUS IN FOCUS IN 00 HEA HEA Active 12/24/2014 [facility] Allergies, Adverse Reactions, Alerts Allergy Allergy Status Severity Reaction(s) Onset Inactive Treating Comm ents Source Name Type Date Date Clinician NO KNOWN Drug Active Univers ALLERGIE Class ity of S [facility] Social History Social Habit Start Date Stop Date Quantity Comments Source History of tobacco Cigarette Smoker [place] of use [facility] Exposure to 2021-08-16 2021-08-26 Not sure University SARS-CoV-2 (event) 00:00:00 09:51:00 [facility] Alcohol intake 2021-08-18 2021-08-18 5.14 /d University of 00:00:00 00:00:00 [facility] Cigarette 2021-07-29 2021-07-29 University of pack-years 00:00:00 00:00:00 [facility] Cigarettes smoked 2021-07-29 2021-07-29 Univers ity of current (pack per 00:00:00 00:00:00 [place] ) - Reported Branch Tobacco use and 2021-07-29 2021-07-29 Smokeless Universit y of exposure 00:00:00 00:00:00 tobacco non-user [facility] [place] Sex Assigned At [birth year] Universit y of 00:00:00 00:00:00 [facility] Smoking Status Start Date Stop Date Source Smokes tobacco daily 2021-07-29 00:00:00 Univers ity of [facility] Medications Ordered Filled Start Stop Current Ordering Indication Dosage Frequency Signature Comments Components Source Medication Medication Date Date Medication? Clinician (SIG) Name Name amLODIPine 2021-03 Yes [id number] 10mg Take 1 U nivers 10 mg 1-07 tablet by ity of tablet 00:00: mouth in [place] 00 the morning. Branch amLODIPine Yes [id number] 10mg Take 1 U nivers 10 mg 5-03 tablet by ity of tablet 00:00: mouth [place] 00 daily. Medical Branch amLODIPine 2021- No [id number] 10mg Take 1 Univers 10 mg 5-03 11-07 tablet by ity of tablet 00:00: 00:00 mouth [place] 00 :00 daily. [facility] Branch Immunizations Ordered Filled Immunization Date Status Comments [facility] Immunization Name Name Pneumococcal 2021-07-29 Completed [place] o f Polysaccharide, 00:00:00 [facility] [place] [facility] ical PPSV23 (PNEUMOVAX) Branch TDAP 2021-07-29 Completed University 00:00:00 [facility] Pneumococcal 2021-07-29 Completed [place] o f Polysaccharide, 00:00:00 [facility] [place] [facility] ical PPSV23 (PNEUMOVAX) Branch TDAP 2021-07-29 Completed University 00:00:00 [facility] SARS-COV-2 COVID-19 2020-06-18 Completed Unive rsity of PFIZER VACCINE 00:00:00 [facility] SARS-COV-2 COVID-19 2020-06-18 Completed Unive rsity of PFIZER VACCINE 00:00:00 [facility] SARS-COV-2 COVID-19 2020-05-07 Completed Unive rsity of PFIZER VACCINE 00:00:00 [facility] SARS-COV-2 COVID-19 2020-05-07 Completed Unive rsity of PFIZER VACCINE 00:00:00 [facility] Procedures This patient has no known procedures. Encounters Start End Encounter Admission Attending Care Care Encounter Source Date/Time Date/Time Type Type Clinicians Facility Department ID 2022-08-18 2022-08-18 Outpatient R GARO [facility] [id number] Univers 14:00:00 14:00:00 MARY cervantes [facility] 2022-02-02 2022-02-02 [facility] [id number] Univers 00:00:00 00:00:00 Alley [place] [id number] i ty [place] [phone] [facility] [facility] 2021-08-27 2021-08-27 Telephone GaroLONSDALE, UTZO 1.2.840.114 [id number] Univers 00:00:00 00:00:00 Mary [place] 350.1.13.10 i [place] [phone] [facility] [address] [facility] 2021-08-26 2021-08-26 Outpatient Nimo [facility] [id number] Univers 09:51:30 23:59:00 HYACINTH cervantes o f [facility] 2021-08-26 2021-08-26 [facility] [id number] Univers 09:51:30 23:59:00 HYACINTH cervantes o f [facility] 2021-08-26 2021-08-26 [facility] [id number] Univers 00:00:00 00:00:00 ALLEY cervantes [facility] 2021-08-19 2021-08-19 Orders Doctor BAÑUELOS [id number] Univers 00:00:00 00:00:00 Only Unassigned, REJI 350.1.13.10 ity of [place] [facility] 4.2.7.2.686 [place] as [phone] [address] 2021-08-18 2021-08-18 Nuclear Fuel Enrichment Technician 2, Becky Lab [facility] [id number] Univers 15:00:00 15:15:00 Visit Mary Wyman [id number] ity of [facility] 4.2.[place] [phone] Or dical NAL [address] [facility] 2021-08-18 2021-08-18 Outpatient R GARO [facility] [id number] Univers 14:00:00 14:51:01 MARY helen [facility] 2021-08-18 2021-08-18 Office Garo [facility] [id number] Univers 14:00:00 14:51:01 Visit Mary L[place]ON 350.1.13.10 i ty [facility] 4.2.[place].2.[place] [phone] Or wallyal [facility] [address] [facility] 2021-08-18 2021-08-18 Outpatient R GARO [facility] [id number] Univers 14:00:00 14:51:01 MARY helen [facility] 2021-08-18 2021-08-18 Outpatient R GARO [facility] [id number] Univers 14:00:00 14:51:01 [facility] [place] [facility] 2021-08-11 2021-08-11 Outpatient R GIUSEPPE [facility] [id number] Univers 08:40:00 09:50:11 HYACINTH cervantes o f [facility] 2021-08-11 2021-08-11 Office Giuseppe [facility] [id number] Univers 08:40:00 09:50:11 Visit Hyacinth [place] 350.1.13.10 ity [place] [phone] Or dical NAL 0[address] [facility] 2021-07-30 2021-07-30 Nuclear Fuel Enrichment Technician Lab, Oswaldo - [place] [facility] 1.2.840.1 [id number] Univers 08:30:00 08:45:00 Visit Alley Mitchell 350.1.13.10 ity [facility] 4.2.7.2.686 [place] JASON?BLEA [phone] Or nupur [facility] [address] MEDICAL OFF[facility] 2021-07-30 2021-07-30 Outpatient R [facility] [id number] Univers 08:30:00 08:30:00 ity of [facility] 2021-07-30 2021-07-30 [facility] [id number] Univers 08:30:00 08:30:00 ALLEY ity [facility] 2021-07-29 2021-07-29 [facility] [id number] Univers 13:00:00 15:30:49 [facility] 2021-07-29 2021-07-29 Office [facility] 1.2.840.114 [id number] Univers 13:00:00 13:30:00 [facility] 350.1.13.10 it y of [place] 4.2.7.2.686 [place] as JASON?BLEA [phone] [facility] [address] MEDICAL OFFICE [facility] 2021-07-29 2021-07-29 Outpatient [facility] [id number] Univers 13:00:00 13:00:00 ALLEY ity [facility] 2021-07-01 2021-07-01 Emergency X [facility] ERT [id number] Univers 18:28:00 19:13:00 AUGUSTINE ity [facility] 2021-07-01 2021-07-01 Emergency [facility] [id number] Univers 18:28:00 19:13:00 Augustine R LITA 350.1.13.10 i ty of [place] [phone] [facility] [address] 2021-07-01 2021-07-01 Emergency X [facility] ERT [id number] Univers 18:28:00 19:13:00 AUGUSTINE ity [facility] 2021-07-01 2021-07-01 Orders Doctor SARMAD 1.2.840.114 [id number] Univers 00:00:00 00:00:00 Only Unassigned, REJI 350.1.13.10 ity of [place] [facility] 4.2.7.2.686 [place] as [phone] [facility] [address] 2021-06-02 2021-06-02 Telephone Lemuel [facility] 1.2.840.114 [id number] Univers 00:00:00 00:00:00 Bismark TORRES 350.1.13.10 i ty of [facility] [place].2.[place] [phone] [address] 2021-01-24 2021-01-24 Orders Doctor SARMAD 1.2.840.114 [id number] Univers 00:00:00 00:00:00 Only Unassigned, REJI 350.1.13.10 ity of [place] [facility] 4.2.7.2.686 [place] [phone] [address] 2021-01-24 2021-01-24 [facility] 1.2.840.114 [id number] Univers 00:00:00 00:00:00 Bismark TORRES 350.1.13.10 i ty of [facility] [place]2.[place] [phone] [address] 2020-11-19 2020-11-19 Refeast [facility] Ranjana [facility] 1.2.840.114 [id number] Univers 00:00:00 00:00:00 Bismark Rm 350.1.13.10 it y of [place] 4.2.7.2.686 [place] BANK [phone] [facility]. [address] 2020-10-07 2020-10-07 Office Ranjana [facility] 1.2.840.114 [id number] Univers 15:21:22 15:36:22 Visit Bismark Rm 350.1.13.10 it y of [place] 4.2.7.2.686 [place] BANK [phone] [facility]. [address] 2020-10-07 2020-10-07 Outpatient R RANJANA [facility] [id number] Univers 15:30:00 15:30:00 BISMARK cervantes [facility] 2020-09-10 2020-09-10 [facility] 1.2.840.114 [id number] Univers 00:00:00 00:00:00 Bismark TORRES 350.1.13.10 i ty of [facility] [place].2.[place] [phone] [facility] [address] 2020-09-04 2020-09-04 Telephone [facility] 1.2.840.114 [id number] Univers 00:00:00 00:00:00 Bismark TORRES 350.1.13.10 i ty of [facility] [place].2.[place] [id number] [facility] [address] 2020-09-02 2020-09-02 [facility] 1.2.840.114 [id number] Univers 15:53:58 16:52:59 Visit Bismark Rm 350.1.13.10 it y of [facility] 4.2.7.2.686 [place] BANK [phone] [facility] BLDG. 144 [address] 2020-09-02 2020-09-02 [facility] [id number] Univers 15:45:00 15:45:00 BISMARK cervantes [facility] 2020-09-02 2020-09-02 Orders Doctor SARMAD 1.2.840.114 [id number] Univers 00:00:00 00:00:00 Only Unassigned, REJI 350.1.13.10 ity of [place] [facility]OSP[facility] 4.2.7.2.686 [place] as [phone] [facility] 009 Branch 2020-08-21 2020-08-21 Telephone [facility] 1.2.840.114 [id number] Univers 00:00:00 00:00:00 Ir Clinic Y HEALTH 350.1.13.10 ity of [place] [phone] [facility] 803 Branch 2020-08-20 2020-08-20 Emergency [facility] [id number] Univers 19:30:00 23:41:00 Vikas [place] 350.1.13.10 ity of [place] [phone] [facility] 084 Branch 2020-08-20 2020-08-20 Emergency X GENOVEVA [facility] ERT [id number] Univers 19:30:00 23:41:00 WAKILI ity of [facility] 2020-08-20 2020-08-20 Orders Doctor SARMAD 1.2.840.114 [id number] Univers 00:00:00 00:00:00 Only Unassigned, REJI 350.1.13.10 ity of [place] [facility] 4.2.7.2.686 [place] as [phone] [facility] 009 Branch 2020-08-07 2020-08-07 Transition David Perez 1.2.840.114 [id number] Univers 00:00:00 00:00:00 of Care Xenia Hagen 350.1.13.10 ity of [place]2.[place] [phone] [facility] 403 Branch 2020-08-04 2020-08-06 Inpatient X [facility] MIKE [id number] Univers 03:32:00 16:49:00 WASYL ity of [facility] 2020-08-04 2020-08-06 [facility], 1.2.840.0 [id number] Univers 03:32:00 16:49:00 Encounter Ruben 01549.1.1 it y of 3.104.2.7 [place] .3.286063 Medica l .8 Branch 2020-08-05 2020-08-05 Anesthesia Cj Cotto 1.2.840 .7 [id number] Univers 11:07:00 14:38:00 Event Jakub Lewis 47014.1.1 ity of 3.104.2.7 [place] .3.967895 Medica l .8 Branch 2020-08-04 2020-08-04 Emergency Albina Price 1.2.840.1 [id number] Univers 00:20:00 02:36:00 Ruben Tian 86984.1.1 ity of 3.104.2.7 [place] .3.391700 Medica l .8 Branch 2020-08-04 2020-08-04 Emergency X DEE [facility] ERT [id number] Univers 00:20:00 00:20:00 FOLUSHO ity of [facility] 2020-08-04 2020-08-04 Travel 1.2.840.1 [id number] [id number] Univers 00:00:00 00:00:00 75478.1.1 350.1.13.10 ity of 3.104.2.7 4.2.7.3.698 [place] .[id number] 084.8 Medica l .8 Branch 2020-07-14 2020-07-14 Orders Doctor SARMAD 1.2.840.114 [id number] Univers 00:00:00 00:00:00 Only Unassigned, REJI 350.1.13.10 ity of [place] [facility] 4.2.7.2.686 [place] [phone] [address] 2020-05-07 2020-05-07 Orders Doctor SARMAD 1.2.840.114 [id number] Univers 00:00:00 00:00:00 Only Unassigned, REJI 350.1.13.10 ity of [place] [facility] 4.2.7.2.686 [place] [phone] [address] 2014-12-28 2014-12-29 Outpatient [facility] [id number] Memoria 15:52:00 04:59:00 nimo Russo 00 l [facility] 2014-12-28 2014-12-28 Outpatient Sharath [facility] [id number] 10:52:00 23:59:00 Juan Antonio 00 Results This patient has no known results.
[2022-02-25] MEDS ORDERED: NA CHLORIDE 0.9% 1,000 ML ONE (21:53)
[2022-02-25] MEDS ORDERED: ASPIRIN 81 MG CHEWABLE TABLET ONE (21:53)
[2022-02-25] MEDS ORDERED: FAMOTIDINE 20 MG/2 ML VIAL IV ONE (21:53)
[2022-02-25] MEDS ORDERED: MORPHINE 4 MG/ML SYR ONE (22:13)
[2022-02-25] MEDS ORDERED: AMLODIPINE 5 MG TAB ONE (22:13)
[2022-02-25] MEDS ORDERED: ONDANSETRON 4 MG/2 ML VIAL ONE (22:13)
--- NOTE | 2022-02-25 22:33 | RAD REPORT ---
EXAM DESCRIPTION: RAD - Chest Single View - 02/25/2022 10:22 pm CLINICAL HISTORY: CHEST PAIN COMPARISON: <Comparisons> FINDINGS: Lines: None. Lungs: No evidence of edema or pneumonia. Pleural: No significant pleural effusions or pneumothorax. Cardiac: The heart size is within normal limits. Mediastinum: Within normal limits. Bones: No acute fractures. Other: None IMPRESSION: No acute cardiopulmonary disease.
[2022-02-25 22:48] LABS: SARS-CoV-2 Antigen Rapid Res Negative (Negative)
[2022-02-25 23:07] LABS: Absolute Lymphocytes (CBC) 1.5 K/uL (0.7-4.9); Hematocrit 39.3 % (36.0-45.0); Lymphocytes % 14.2 % (15.3-44.8); MCV 96.1 fL (80-100); MPV 8.4 fL (7.6-11.3); RBC Red Blood Cell Count 4.09 M/uL (3.86-4.86)
[2022-02-25 23:08] LABS: Protime INR 1.13
[2022-02-25 23:21] LABS: ALT/SGPT 35 U/L (12-78); AST/SGOT 16 U/L (15-37); Albumin 3.5 g/dL (3.4-5.0); Alkaline Phosphatase 85 U/L (45-117); BUN Blood Urea Nitrogen 11 mg/dL (7-18); Bicarbonate 24 mmol/L (21-32); Bilirubin Total 0.2 mg/dL (0.2-1.0); Glomerular Filtration Rate 108 ml/min (=/>90); Glucose Level 111 mg/dL (74-106); Lipase 186 U/L (73-393); Magnesium 1.9 mg/dL (1.8-2.4); NT PRO-BNP 146 pg/mL (<125); Potassium 3.3 mmol/L (3.5-5.1); Protein, Total 7.3 g/dL (6.4-8.2); Sodium Level 139 mmol/L (136-145); Troponin High Sensitivity 5.4 pg/mL (<58.9)
[2022-02-25 23:23] LABS: Bilirubin Direct < 0.1 mg/dL (0-0.2)
[2022-02-26] MEDS ORDERED: hydroCHLOROthiazide 25 MG TAB ONE (00:20)
[2022-02-26] MEDS ORDERED: POTASSIUM 25 MEQ EFFERV TAB ONE (01:04)
--- NOTE | 2022-02-26 01:24 | ER ---
Nurse's Notes [facility] Name: Jaky Mcconnell Age: 41 yrs Sex: Female : 1980 Arrival Date: 02/25/2022 Time: 21:35 Bed 6 Private MD: Diagnosis: Chest pain, unspecified;Essential (primary) hypertension;Hypokalemia Presentation: 02/25 21:45 Chief complaint: Patient states: I have had this chest pain on and off for about a kd3 month now. tonight it hurts on the left side of my chest and it radiates up the left side of my neck and jaw. I was just diagnosed with high blood pressure. I did not take my blood pressure medication today because I ran out. Coronavirus screen: Vaccine status: Patient reports receiving the 2nd dose of the covid vaccine. Ebola Screen: No symptoms or risks identified at this time. Initial Sepsis Screen: Does the patient meet any 2 criteria? No. Patient's initial sepsis screen is negative. Does the patient have a suspected source of infection? No. Patient's initial sepsis screen is negative. Risk Assessment: Do you want to hurt yourself or someone else? Patient reports no desire to harm self or others. Onset of symptoms was February 25, 2022. 21:45 Method Of Arrival: Ambulatory kd3 21:45 Acuity: JONNA 3 kd3 Triage Assessment: 21:51 General: Appears uncomfortable, Behavior is calm, cooperative. Pain: Complains of pain kd3 in anterior aspect of left upper chest Pain radiates to left submandibular area and left sternocleidomastoid. Neuro: Level of Consciousness is awake, alert, obeys commands, Oriented to person, place, time, situation. Cardiovascular: Capillary refill < 3 seconds in bilateral fingers Patient's skin is warm and dry. Respiratory: Airway is patent Trachea midline Respiratory effort is even, unlabored, Respiratory pattern is regular, symmetrical. 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 - Social history:: Smoking status: unknown. Screenin:53 Abuse screen: Denies threats or abuse. Denies injuries from another. Nutritional kd3 screening: No deficits noted. Tuberculosis screening: No symptoms or risk factors identified. Fall Risk None identified. Assessment: 21:40 General: Appears uncomfortable, Behavior is calm, cooperative. Pain: Complains of pain ha1 in left axillary Pain radiates to chest Pain currently is 8 out of 10 on a pain scale. Neuro: Level of Consciousness is awake, alert, obeys commands, Oriented to person, place, time, situation. Cardiovascular: Capillary refill < 3 seconds Patient's skin is warm and dry. Respiratory: Airway is patent Trachea midline Respiratory effort is even, unlabored, Respiratory pattern is regular, symmetrical. GI: No signs and/or symptoms were reported involving the gastrointestinal system. Abdomen is non-distended, obese, Bowel sounds present X 4 quads. : No signs and/or symptoms were reported regarding the genitourinary system. EENT: No deficits noted. No signs and/or symptoms were reported regarding the EENT system. Derm: Skin is normal. Musculoskeletal: Circulation, motion, and sensation intact. Range of motion: intact in all extremities. 22:40 Reassessment: Patient and/or family updated on plan of care and expected duration. Pain ha1 level reassessed. Patient is alert, oriented x 3, equal unlabored respirations, skin warm/dry/pink. in shift at bedside. 02/26 01:47 General: discharge pending second troponin . Pain: Pain began gradually. kd3 01:54 Reassessment: Patient and/or family updated on plan of care and expected duration. Pain kd3 level reassessed. Patient is alert, oriented x 3, equal unlabored respirations, skin warm/dry/pink. Vital Signs: 02/25 21:40 BP 128 / 84; Pulse 88; Resp 18 S; Pulse Ox 98% on R/A; ha1 21:45 BP 128 / 84; Pulse 88; Resp 17; Temp 98.4; Pulse Ox 98% on R/A; Weight 96.62 kg; Height kd3 5 ft. 8 in. (172.72 cm); Pain /; 22:40 BP 123 / 101; Pulse 78; Resp 18 S; Pulse Ox 98% on R/A; ha1 23:00 BP 123 / 101; Pulse 78; Resp 18; Pulse Ox 98% on R/A; ha1 12 00:03 BP 124 / 77; Pulse 69; Resp 16; Pulse Ox 99% on R/A; kd3 01:54 BP 113 / 53; Pulse 69; Resp 18; Pulse Ox 100% on R/A; kd3 02/25 21:45 Body Mass Index 32.39 (96.62 kg, 172.72 cm) kd3 ED Course: 02/25 21:35 Patient arrived in ED. bp1 21:37 Octavio Carbajal MD is Attending Physician. calin 21:51 Triage completed. kd3 21:51 Arm band placed on right wrist. kd3 21:54 Dimple Willard, RYLAN is Primary Nurse. ha1 22:08 SARS RAPID Sent. kl 22:08 Lipase Sent. kl 22:09 Basic Metabolic Panel Sent. kl 22:09 CBC with Diff Sent. kl 22:24 XRAY Chest (1 view) In Process Unspecified. EDMS 12 00:43 CT Aorta for Dissection In Process Unspecified. EDMS 01:23 Glenn Whitley MD is Referral Physician. calin 01:55 Patient has correct armband on for positive identification. Client placed on continuous kd3 cardiac and pulse oximetry monitoring. NIBP monitoring applied. 01:55 No provider procedures requiring assistance completed. Patient maintains SpO2 kd3 saturation greater than 95% on room air. 02:18 IV discontinued, intact, bleeding controlled, No redness/swelling at site. Pressure kd3 dressing applied. Administered Medications: 02/25 21:56 Not Given (Patient Refused): Aspirin Chewable Tablet 324 mg PO once; 81 mg tablets x 4 [facility] 22:08 Drug: Pepcid (famotidine) 20 mg Route: IVP; Site: left antecubital; 02/26 01:56 Follow up: Response: No adverse reaction kd3 02/25 22:08 Drug: NS 0.9% 1000 ml Route: IV; Rate: 125 ml/hr; Site: left antecubital; 02/26 02:18 Follow up: Response: No adverse reaction; IV Status: Completed infusion; IV Intake: kd3 250ml 02/25 22:18 Not Given (Patient Refused): Zofran (Ondansetron) 4 mg IVP once; over 2 minutes ha1 22:19 Not Given (Patient Refused): morphine 4 mg IVP once over 4 mins ha1 22:31 Not Given (Patient Refused): Norvasc (amlodipine) 10 mg PO once kd3 22:31 Drug: Norvasc (amlodipine) 5 mg Route: PO; ha1 23:00 Follow up: Response: No adverse reaction ha1 02/26 00:39 Drug: Hydrochlorothiazide 25 mg Route: PO; kd3 01:56 Follow up: Response: No adverse reaction; Blood pressure is lowered kd3 01:34 Drug: Potassium Effervescent Tablet 25 mEq Route: PO; kl 01:56 Follow up: Response: No adverse reaction kd3 Medication: 01:55 VIS not applicable for this client. kd3 Intake: 02:18 IV: 250ml; Total: 250ml. kd3 Outcome: 01:23 Discharge ordered by MD. layton 02:18 Discharged to home ambulatory. kd3 02:18 Condition: stable 02:18 Discharge instructions given to patient, Instructed on discharge instructions, follow up and referral plans. medication usage, Demonstrated understanding of instructions, follow-up care, medications, Prescriptions given X 2. 02:19 Patient left the ED. kd3 Signatures: Dispatcher [employer] EDMS Christine Paulino RN RN kl Anderson, Corey, MD MD cha Paniauga, Brittany bp1 Doucette, Kyli, RN RN 3 Dimple Willard RN RN ha1 Corrections: (The following items were deleted from the chart) 02/25 22:10 21:51 Allergies: Aspirin; kd3 kl
--- NOTE | 2022-02-26 01:24 | EDPHYS ---
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 - Social history:: Smoking status: unknown. ROS: 21:56 Constitutional: Negative for fever, chills, and weight loss, Eyes: Negative for injury, calin pain, redness, and discharge, ENT: Negative for injury, pain, and discharge, Neck: Negative for injury, pain, and swelling, Respiratory: Negative for shortness of breath, cough, wheezing, and pleuritic chest pain, Abdomen/GI: Negative for abdominal pain, nausea, vomiting, diarrhea, and constipation, Back: Negative for injury and pain, : Negative for injury, bleeding, discharge, and swelling, MS/Extremity: Negative for injury and deformity, Skin: Negative for injury, rash, and discoloration, Neuro: Negative for headache, weakness, numbness, tingling, and seizure, Psych: Negative for depression, anxiety, suicide ideation, homicidal ideation, and hallucinations, Allergy/Immunology: Negative for hives, rash, and allergies, Endocrine: Negative for neck swelling, polydipsia, polyuria, polyphagia, and marked weight changes, Hematologic/Lymphatic: Negative for swollen nodes, abnormal bleeding, and unusual bruising. 21:56 Cardiovascular: Positive for chest pain, of the chest. Exam: 21:56 Constitutional: This is a well developed, well nourished patient who is awake, alert, calin and in no acute distress. Head/Face: Normocephalic, atraumatic. Eyes: Pupils equal round and reactive to light, extra-ocular motions intact. Lids and lashes normal. Conjunctiva and sclera are non-icteric and not injected. Cornea within normal limits. Periorbital areas with no swelling, redness, or edema. ENT: Nares patent. No nasal discharge, no septal abnormalities noted. Tympanic membranes are normal and external auditory canals are clear. Oropharynx with no redness, swelling, or masses, exudates, or evidence of obstruction, uvula midline. Mucous membranes moist. Neck: Trachea midline, no thyromegaly or masses palpated, and no cervical lymphadenopathy. Supple, full range of motion without nuchal rigidity, or vertebral point tenderness. No Meningismus. Chest/axilla: Normal chest wall appearance and motion. Nontender with no deformity. No lesions are appreciated. Cardiovascular: Regular rate and rhythm with a normal S1 and S2. No gallops, murmurs, or rubs. Normal PMI, no JVD. No pulse deficits. Respiratory: Lungs have equal breath sounds bilaterally, clear to auscultation and percussion. No rales, rhonchi or wheezes noted. No increased work of breathing, no retractions or nasal flaring. Abdomen/GI: Soft, non-tender, with normal bowel sounds. No distension or tympany. No guarding or rebound. No evidence of tenderness throughout. Back: No spinal tenderness. No costovertebral tenderness. Full range of motion. Skin: Warm, dry with normal turgor. Normal color with no rashes, no lesions, and no evidence of cellulitis. MS/ Extremity: Pulses equal, no cyanosis. Neurovascular intact. Full, normal range of motion. Neuro: Awake and alert, GCS 15, oriented to person, place, time, and situation. Cranial nerves II-XII grossly intact. Motor strength 5/5 in all extremities. Sensory grossly intact. Cerebellar exam normal. Normal gait. Psych: Awake, alert, with orientation to person, place and time. Behavior, mood, and affect are within normal limits. 21:56 ECG was reviewed by the Attending Physician. Vital Signs: 21:40 BP 128 / 84; Pulse 88; Resp 18 S; Pulse Ox 98% on R/A; ha1 21:45 BP 128 / 84; Pulse 88; Resp 17; Temp 98.4; Pulse Ox 98% on R/A; Weight 96.62 kg; Height kd3 5 ft. 8 in. (172.72 cm); Pain 9/10; 22:40 BP 123 / 101; Pulse 78; Resp 18 S; Pulse Ox 98% on R/A; ha1 23:00 BP 123 / 101; Pulse 78; Resp 18; Pulse Ox 98% on R/A; ha1 12 00:03 BP 124 / 77; Pulse 69; Resp 16; Pulse Ox 99% on R/A; kd3 01:54 BP 113 / 53; Pulse 69; Resp 18; Pulse Ox 100% on R/A; kd3 02/25 21:45 Body Mass Index 32.39 (96.62 kg, 172.72 cm) kd3 MDM: 02/25 21:37 Patient medically screened. calin 21:58 Differential diagnosis: abnormal EKG, anxiety, chest wall pain, Cholelithiasis calin costochondritis, pancreatitis, pericarditis, pneumonia, pulmonary embolus, stable angina, unstable angina. HEART Score: History: Slightly Suspicious (0), ECG: Non specific repolarization disturbance / LBTB / PM (1), Age: < or = 45 years (0), Risk Factors: > or = 3 Risk factors for atherosclerotic disease (2), [Hypertension] [+ Family HX] [Obesity] Troponin: < or = 1 x Normal Limit (0). The patient was not given aspirin in the Emergency Department. Not indicated due to patient's past medical history. The patient's deep vein thrombosis risk score was calculated as follows: Total Score: 0. This patient was found to be at low risk for a deep vein thrombosis by using the Well's assessment criteria. The patient's pulmonary embolism risk score was calculated as follows: Total Score: 0-2 points. This patient was found to be at low risk for a pulmonary embolism by using the Well's assessment criteria. MELISSA Risk Score: TOTAL SCORE = 1. Data reviewed: vital signs, nurses notes, lab test result(s), EKG, radiologic studies, plain films. 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 Test interpretation: by ED physician or midlevel provider: ECG, plain radiologic studies. Counseling: I had a detailed discussion with the patient and/or guardian regarding: the historical points, exam findings, and any diagnostic results supporting the discharge/admit diagnosis, lab results, radiology results. 02/25 21:39 Order name: Basic Metabolic Panel; Complete [facility]: 23:57 [facility] 02/25 21:39 Order name: CBC with Diff; Complete Time: 23:57 [facility] 02/25 21:39 Order name: LFT's; Complete Time: 23:57 [facility] 02/25 21:39 Order name: Magnesium; Complete Time: 23:57 [facility] 02/25 21:39 Order name: NT PRO-BNP; Complete Time: 23:57 [facility] 02/25 21:39 Order name: PT-INR; Complete Time: 23:57 [facility] 02/25 21:39 Order name: Troponin HS; Complete Time: 23:57 [facility] 02/25 21:39 Order name: XRAY Chest (1 view); Complete Time: 22:53 [facility] 02/25 21:39 Order name: Lipase; Complete Time: 23:57 [facility] 02/25 21:39 Order name: SARS RAPID; Complete Time: 22:53 [facility] 02/25 22:25 Order name: D-Dimer; Complete Time: 23:57 [facility] 02/25 23:59 Order name: Troponin High Sensitivity: 1 am; Complete Time: 02:17 [facility] 02/25 23:59 Order name: CT Aorta [facility] 02/25 21:39 Order name: EKG; Complete Time: 21:40 [facility] 02/25 21:39 Order name: Cardiac monitoring; Complete Time: 22:09 [facility] 02/25 21:39 Order name: EKG - Nurse/Tech; Complete Time: 22:09 [facility] 02/25 21:39 Order name: IV Saline Lock; Complete Time: 22:09 [facility] 02/25 21:39 Order name: Labs collected and sent; Complete Time: 22:09 [facility] 02/25 21:39 Order name: O2 Per Protocol; Complete Time: 22:09 [facility] 02/25 21:39 Order name: O2 Sat Monitoring; Complete Time: 22:09 [facility] EC:56 Rate is 88 beats/min. Rhythm is regular. QRS [place] is Normal. MN interval is normal. QRS calin interval is normal. QT interval is normal. No Q waves. T waves are Normal. No ST changes noted. Clinical impression: NSR w/ Non-specific ST/T Changes, LVH, and No evidence of ischemia. Interpreted by me. Reviewed by me. Administered Medications: 21:56 Not Given (Patient Refused): Aspirin Chewable Tablet 324 mg PO once; 81 mg tablets x 4 calin 22:08 Drug: Pepcid (famotidine) 20 mg Route: IVP; Site: left antecubital; 02/26 01:56 Follow up: Response: No adverse reaction kd3 02/25 22:08 Drug: NS 0.9% 1000 ml Route: IV; Rate: 125 ml/hr; Site: left antecubital; 02/26 02:18 Follow up: Response: No adverse reaction; IV Status: Completed infusion; IV Intake: kd3 250ml 02/25 22:18 Not Given (Patient Refused): Zofran (Ondansetron) 4 mg IVP once; over 2 minutes ha1 22:19 Not Given (Patient Refused): morphine 4 mg IVP once over 4 mins ha1 22:31 Not Given (Patient Refused): Norvasc (amlodipine) 10 mg PO once kd3 22:31 Drug: Norvasc (amlodipine) 5 mg Route: PO; ha1 23:00 Follow up: Response: No adverse reaction 1 02/26 00:39 Drug: Hydrochlorothiazide 25 mg Route: PO; kd3 01:56 Follow up: Response: No adverse reaction; Blood pressure is lowered kd3 01:34 Drug: Potassium Effervescent Tablet 25 mEq Route: PO; kl 01:56 Follow up: Response: No adverse reaction kd3 Disposition Summary: 02/26/22 01:23 Discharge Ordered Location: Home calin Problem: new calin Symptoms: have improved calin Condition: Stable calin Diagnosis - Chest pain, unspecified calin - Essential (primary) hypertension calin - Hypokalemia calin Followup: calin - With: Private Physician - When: 2 - 3 days - Reason: Recheck today's complaints, Continuance of care, Re-evaluation by your physician Followup: calin - With: - When: 2 - 3 days - Reason: Recheck today's complaints, Re-evaluation by your physician Discharge Instructions: - Discharge Summary Sheet calin - Nonspecific Chest Pain, Adult calin - Hypertension, Adult calin - Nonspecific Chest Pain, Adult, [id number] calin - Hypertension, Adult, [id number] calin - Potassium Content of Foods calin - How to Take Your Blood Pressure, [id number] calin - Aspirin and Your Heart calin - Managing Your Hypertension calin - Hypokalemia calin Forms: - Medication Reconciliation Form calin - Thank You Letter calin - Antibiotic Education calin - Prescription Opioid Use [facility] Prescriptions: - Norvasc 5 mg Oral Tablet - take 1 tablet by ORAL route once daily; 20 tablet; Refills: 0, Product [facility] Selection Permitted - Hydrochlorothiazide 12.5 mg Oral Tablet - take 1 tablet by ORAL route once daily; 30 tablet; Refills: 0, Product [facility] Selection Permitted Signatures: Dispatcher [employer] Christine De La Garza RN RN kl Anderson, Corey, MD MD cha Doucette, Kyli, RN RN kd3 Dimple Willard RN RN ha1 Corrections: (The following items were deleted from the chart) 02/25 22:10 21:51 Allergies: Aspirin; arlin soto 22:25 21:55 D-[id number] ordered. EDIA EDIA
[2022-02-26 02:24] VITALS: TEMP 98.4
[2022-02-26 02:29] VITALS: BP 113/53; O2SAT 100
--- NOTE | 2022-02-26 13:20 | EKG ---
Test Date: 2022-02-25 Test Time: 21:46:21 Sales Project Engineer: KHLOE MEASUREMENT RESULTS: Intervals: Rate: 88 FL: 182 QRSD: 82 QT: 344 QTc: 416 [place]: P: 58 FL: 182 QRS: 79 T: -52 INTERPRETIVE STATEMENTS: Normal sinus rhythm T wave abnormality, consider inferior ischemia T wave abnormality, consider anterolateral ischemia Abnormal ECG Compared to ECG 01/22/2019 12:24:41 No significant changes Electronically Signed On 02-26-22 13:20:29 PRECIPITATION EQUIPMENT TENDER by Dale Locke
--- NOTE | 2022-02-26 19:39 | RAD REPORT ---
EXAM DESCRIPTION: CT - Angio Aorta For Dissection - 02/26/2022 1:35 am CLINICAL HISTORY: The patient is 41 years old and is Female; cp TECHNIQUE: Axial computed tomographic angiography images of the chest, abdomen and pelvis with intra venous contrast. This CT exam was performed using one or more of the following dose reduction techn iques: automated exposure control, adjustment of the mA and/or kV according to patient size, and/or use of iterative reconstruction technique. MIP reconstructed images were created and reviewed. DLP: 1736 mGy*cm COMPARISON: None. FINDINGS: VASCULATURE: AORTA: No acute findings. No aortic aneurysm. No dissection. PULMONARY ARTERIES: Unremarkable as visualized. No pulmonary embolism is identified. GREAT VESSELS OF AORTIC ARCH: No acute findings. No dissection. No arterial occlusion or signif icant stenosis. CELIAC TRUNK AND MESENTERIC ARTERIES: No acute findings. No occlusion or significant stenosis. RENAL ARTERIES: No acute findings. No occlusion or significant stenosis. ILIAC ARTERIES: No acute findings. No occlusion or significant stenosis. CHEST: LUNGS: Unremarkable. No mass. No consolidation. PLEURAL SPACE: Unremarkable. No significant effusion. No pneumothorax. HEART: Unremarkable. No cardiomegaly. No significant pericardial effusion. ABDOMEN: LIVER: Unremarkable. No mass. GALLBLADDER AND BILE DUCTS: Unremarkable. No calcified stones. No ductal dilation. PANCREAS: Unremarkable. No ductal dilation. No mass. SPLEEN: Unremarkable. No splenomegaly. ADRENALS: Unremarkable. No mass. KIDNEYS AND URETERS: Unremarkable. No hydronephrosis. No solid mass. STOMACH AND BOWEL: Unremarkable. No obstruction. No mucosal thickening. PELVIS: APPENDIX: The appendix is seen and is within normal limits. BLADDER: Unremarkable. No mass. REPRODUCTIVE: Unremarkable as visualized. CHEST, ABDOMEN and PELVIS: INTRAPERITONEAL SPACE: Unremarkable. No significant fluid collection. No free air. BONES/JOINTS: No acute fracture. No dislocation. SOFT TISSUES: Unremarkable. LYMPH NODES: Unremarkable. No enlarged lymph nodes. TUBES, LINES AND DEVICES: Intrauterine contraceptive device. IMPRESSION: 1. No acute aortic abnormality. No pulmonary embolism. 2. No acute intrathoracic, abdominal or pelvic abnormality. Electronically signed by: Mateo Bell DO 02/26/2022 1:05 AM SWITCH TECHNICIAN Due to temporary technical issues with the PACS/Fluency reporting system, reports are being signed by the in house radiologists without review as a courtesy to insure prompt reporting. The interpreting radiologist is fully responsible for the content of the report.
== END 2022-02-26 02:19 | disposition home or self-care (01) ==
LOC: ER 21:32
DX: R07.89 Other chest pain (principal); I10 Essential (primary) hypertension; E87.6 Hypokalemia; Z88.0 Allergy status to penicillin; Z20.822 Contact with and (suspected) exposure to COVID-19
CPT/HCPCS: 36415; 71045; 71275; 74175; 80048; 80076; 83690; 83735; 83880; 84484; 85025; 85379; 85610; 87811; 93005; 96361; 96374; 99284; J2405; J7030; Q9967

== ENCOUNTER 2022-03-01 18:00 | Emergency (ER) | payer OTHER ==
--- OUTSIDE RECORDS SUMMARY | 2022-03-01 18:04 | XMS REPORT | Continuity of Care Document ---
:1980 Author Organization [facility] t Address [address] [place] [address] Care Team Providers Name Role Phone Pcp, Patient Does Not Have A Primary Care Physician [phone] MARY WYMAN Attending Clinician Unavailable Alley Mills Attending Clinician Mary Wyman PA-C Attending Clinician HYACINTH CHIN Attending Clinician Unavailable ALLEY MITCHELL Attending Clinician Unavailable Doctor Unassigned, [place] Attending Clinician Unavailable 2, [facility] Attending Clinician Unavailable Hyacinth Chin MD Attending Clinician Lab, Ang - Db Attending Clinician Unavailable AUGUSTINE JARAMILLO Attending Clinician Unavailable Augustine Thomas Attending Clinician Bismark Chilel MD Attending Clinician BISMARK CHILEL Attending Clinician Unavailable [facility] Attending Clinician Unavailable Vikas Fleming MD Attending Clinician VIKAS FLEMING Attending Clinician Unavailable Xenia Perez Attending Clinician RUBEN TIAN Attending Clinician Unavailable Ruben Tian MD Attending Clinician Cj Cotto MD Attending Clinician Jakub Lewis MD Attending Clinician Albina Yañez Attending Clinician ALBINA PRICE Attending Clinician Unavailable Juan Antonio Early Attending Clinician ALLEY MITCHELL Admitting Clinician Unavailable RUBEN TIAN Admitting Clinician Unavailable Ruben Tian MD Admitting Clinician Payers Payer Name Policy Type Policy Number Effective Date Expiration Date S preet VELA BCBS BLUE [id number] 2021 ADVANTAGE HMO 00:00:00 HIM DAVIDETTER FROM [id number] 2020 [facility] 00:00:00 [facility] [id number] 2021 COMM 00:00:00 Problems Condition Condition Condition Status Onset Resolution Last Treating Co mments Source Name Details Category Date Date Treatment Clinician Date Obesity Obesity Disease Active Univers (BMI (BMI 5-10 ity of 30-39.9) 30-39.9) 00:00: [address] Epistaxis Epistaxis Disease Active Uni vers 5-09 ity of 00:00: [address] VENTRICULO VENTRICUL Diagnosis Active 2014-12-28 Carey LUONG ROBE, 12-24 10:59:00 l ECHOGENIC ECHOGENIC 00:00: Herm swapna FOCUS IN FOCUS IN 00 HEA HEA Active 5 [facility] Allergies, Adverse Reactions, Alerts Allergy Allergy Status Severity Reaction(s) Onset Inactive Treating Comm ents Source Name Type Date Date Clinician NO KNOWN Drug Active Univers ALLERGIE Class ity of S [facility] Social History Social Habit Start Date Stop Date Quantity Comments Source History of tobacco Cigarette Smoker University of use [facility] Exposure to 2021-08-16 2021-08-26 Not sure University SARS-CoV-2 (event) 00:00:00 09:51:00 [facility] Alcohol intake 2021-08-18 2021-08-18 5.14 /d University of 00:00:00 00:00:00 [facility] Cigarette 2021-07-29 2021-07-29 University of pack-years 00:00:00 00:00:00 [facility] Cigarettes smoked 2021-07-29 2021-07-29 Univers ity of current (pack per 00:00:00 00:00:00 [place] ) - Reported Branch Tobacco use and 2021-07-29 2021-07-29 Smokeless Universit y of exposure 00:00:00 00:00:00 tobacco non-user [facility] At [address] [facility] 00[facility]00[facility]00 [facility] Smoking Status Start Date Stop Date Source Smokes tobacco daily 2021-07-29 00:00:[address] [facility] ity of [facility] Medications Ordered Filled Start Stop Current Ordering Indication Dosage Frequency Signature Comments Components Source Medication Medication Date Date Medication? Clinician (SIG) Name Name amLODIPine 2021-03 Yes [id number] 10mg Take 1 U nivers 10 mg 1-07 tablet by ity of tablet 00:00: mouth in [place] 00 the morning. Branch amLODIPine Yes [id number] 10mg Take 1 U nivers 10 mg 5-03 tablet by ity of tablet 00:00: mouth [place] 00 daily. Medical Branch amLODIPine 2021- No [id number] 10mg Take 1 Univers 10 mg 5-03 11-07 tablet by ity of tablet 00:00: 00:00 mouth [place] 00 :00 daily. [facility] Immunizations Ordered Filled Immunization Date Status Comments Sour e Immunization Name Name Pneumococcal 2021-07-29 Completed [place] o f Polysaccharide, 00:00:00 [place] Med ical PPSV23 (PNEUMOVAX) Branch TDAP 2021-07-29 Completed University 00:00:00 [facility] Pneumococcal 2021-07-29 Completed [place] o f Polysaccharide, 00:00:00 [place] Med ical PPSV23 (PNEUMOVAX) Branch TDAP 2021-07-29 Completed University 00:00:00 [facility] SARS-COV-2 COVID-19 2020-06-18 Completed Unive rsity of PFIZER VACCINE 00:00:00 [facility] SARS-COV-2 COVID-19 2020-06-18 Completed Unive rsity of PFIZER VACCINE 00:00:00 [facility] SARS-COV-2 COVID-19 2020-05-07 Completed Unive rsity of PFIZER VACCINE 00:00:00 [facility] SARS-COV-2 COVID-19 2020-05-07 Completed Unive rsity of PFIZER VACCINE 00:00:00 [facility] Procedures This patient has no known procedures. Encounters Start End Encounter Admission Attending Care Care Encounter Source Date/Time Date/Time Type Type Clinicians Facility Department ID 2022-08-18 2022-08-18 Outpatient R GARO [facility] [id number] Univers 14:00:00 14:00:00 MARY cervantes [facility] 2022-02-02 2022-02-02 [facility] 1..[id number] Univers 00:00:00 00:00:00 Alley LONDON [id number] i ty of [place].2.[place] [phone] Mt dical [facility] 044 [facility] 2021-08-27 2021-08-27 Telephone [facility] 1..[id number] Univers 00:00:00 00:00:00 Mary LONDON [id number] i ty [place] [id number] [phone] Mt dical NAL 134 [facility] 2021-08-26 2021-08-26 Out[facility] [id number] Univers 09:51:30 23:59:00 HYACINTH cervantes o f [facility] 2021-08-26 2021-08-26 Outpatient R GIUSEPPE [facility] [id number] Univers 09:51:30 23:59:00 HYACINTH cervantes o f [facility] 2021-08-26 2021-08-26 Outpatient R STEPHEN [facility] [id number] Univers 00:00:00 00:00:00 ALLEY cervantes [facility] 2021-08-19 2021-08-19 Orders Doctor BAÑUELOS 1.2.840.114 [id number] Univers 00:00:00 00:00:00 Only Unassigned, REJI 350.1.13.10 ity of [place] [facility] 4.2.7.2.686 [place] as [phone] [address] 2021-08-18 2021-08-18 [employer] Developer 2, Becky Lab [facility] 1.2.840.114 [id number] Univers 15:00:00 15:15:00 Visit Luis Manuelgray Mary LITA [id number] ity [address] [facility] 4.2.7.2.[place] [phone] Mt dical NAL 353 [facility] 2021-08-18 2021-08-18 Outpatient R GARO [facility] [id number] Univers 14:00:00 14:51:01 MARY helen [facility] 2021-08-18 2021-08-18 Office Garo [facility] [id number] Univers 14:00:00 14:51:01 Visit Mary LONDON [id number] i ty of [facility] 4.2.7.2.[place] [phone] Mt dical NAL 134 [facility] 2021-08-18 2021-08-18 Outpatient R GARO [facility] [id number] Univers 14:00:00 14:51:01 MARY helen [facility] 2021-08-18 2021-08-18 Outpatient R GARO [facility] [id number] Univers 14:00:00 14:51:01 MARY itmaryam [facility] 2021-08-11 2021-08-11 Outpatient R GIUSEPPE [facility] [id number] Univers 08:40:00 09:50:11 HYACINTH cervantes o f [facility] 2021-08-11 2021-08-11 Office Giuseppe [facility] 1.2.840.114 [id number] Univers 08:40:00 09:50:11 Visit Hyacinth [place] 350.1.13.10 ity [address] [facility] [id number] [phone] Mt dical NAL 059 [facility] 2021-07-30 2021-07-30 [employer] Applications Developer Lab, Oswaldo - Newton [facility] 1.2.840.1 [id number] Univers 08:30:00 08:45:00 Visit Alley Mitchell [id number] ity of [facility] 4.2.7.2.686 [place] as JASON?BLEA [phone] Mt nupur VALADEZ [address] MEDICAL OFFICE [facility] 2021-07-30 2021-07-30 Outpatient R [facility] [id number] Univers 08:30:00 08:30:00 ity of [facility] 2021-07-30 2021-07-30 [facility] [id number] Univers 08:30:00 08:30:00 ALLEY ity [facility] 2021-07-29 2021-07-29 [facility] [id number] Univers 13:00:00 15:30:49 ALLEY ity [facility] 2021-07-29 2021-07-29 Office [facility] 1.2.840.114 [id number] Univers 13:00:00 13:30:00 [facility] [id number] it y of [place] 4.2.7.2.686 [place] JASON?BLEA [phone] Mt nupur [facility] 044 [facility] OFFICE [facility] 2021-07-29 2021-07-29 Out[facility] [id number] Univers 13:00:00 13:00:00 ALLEY ity [facility] 2021-07-01 2021-07-01 Emergency X [facility] ERT [id number] Univers 18:28:00 19:13:00 AUGUSTINE ity [facility] 2021-07-01 2021-07-01 Emergency [facility] [id number] Univers 18:28:00 19:13:00 Augustine R LITA 350.1.13.10 i ty of [place].7[place] E[place] [id number] [facility] [address] 2021-07-01 2021-07-01 Emergency X [facility] ERT [id number] Univers 18:28:00 19:13:00 AUGUSTINE ity [facility] 2021-07-01 2021-07-01 Orders Doctor SARMAD 1.2.840.114 [id number] Univers 00:00:00 00:00:00 Only Unassigned, REJI 350.1.13.10 ity of [place] [facility] 4.2.7.2.686 [place] [phone] [facility] [address] [place] 2021-06-02 2021-06-02 [facility] 1.2.840.114 [id number] Univers 00:00:00 00:00:00 Bismark TORRES 350.1.13.10 i ty of [facility] [place].2.[phone] [address] 2021-01-24 2021-01-24 Orders Doctor SARMAD 1.2.840.114 [id number] Univers 00:00:00 00:00:00 Only Unassigned, REJI 350.1.13.10 ity of [facility] [place] [facility] 4.2.7.2.686 [place] [phone] [facility] [address] 2021-01-24 2021-01-24 [facility] 1.2.840.114 [id number] Univers 00:00:00 00:00:00 Bismark TORRES 350.1.13.10 i ty of [facility] 4.[place].2.[place] [id number] [address] 2020-11-19 2020-11-19 [facility] 1.2.840.114 [id number] Univers 00:00:00 00:00:00 Bismark Rm 350.1.13.10 it y of [place] 4.2.7.2.686 [place] BANK [id number] [facility]. 144 Branch 2020-10-07 2020-10-07 Office Ranjana [facility] 1.2.840.114 [id number] Univers 15:21:22 15:36:22 Visit Bismark Rm 350.1.13.10 it y of [place] 4.2.7.2.686 [place] BANK [phone] [facility]. [address] 2020-10-07 2020-10-07 [facility] [address] [facility] [id number] Univers 15:30:00 15:30:00 BISMARK cervantes [facility] 2020-09-10 2020-09-10 [facility] 1.2.840.114 [id number] Univers 00:00:00 00:00:00 Bismark TRAYLORY 350.1.13.10 i ty of [facility] 4.[place].7.2.[place] [phone] [facility] 144 Branch 2020-09-04 2020-09-04 Telephone [facility] 1.2.840.114 [id number] Univers 00:00:00 00:00:00 Bismark TRAYLORY 350.1.13.10 i ty of [facility] 4.2.7.2.[place] [id number] [facility] [address] 2020-09-02 2020-09-02 Office [facility] 1.2.840.114 [id number] Univers 15:53:58 16:52:59 Visit Bismark Maryam 350.1.13.10 it y of [facility] 4.2.7.2.686 [place] BANK [id number] [facility] BLDG. 144 Branch 2020-09-02 2020-09-02 [address] [facility] [id number] Univers 15:45:00 15:45:00 BISMARK cervantes [facility] 2020-09-02 2020-09-02 Orders Doctor SARMAD 1.2.840.114 [id number] Univers 00:00:00 00:00:00 Only Unassigned, REJI 350.1.13.10 ity of [facility] 4.2.7.2.686 [place] [phone] [facility] 009 Branch 2020-08-21 2020-08-21 Telephone [facility] 1.2.840.114 [id number] Univers 00:00:00 00:00:00 Ir Clinic Y HEALTH 350.1.13.10 ity of [place] [phone] [facility] 803 Branch 2020-08-20 2020-08-20 Emergency [facility] [id number] Univers 19:30:00 23:41:00 Vikas [place] 350.1.13.10 ity of [place].2.[place] [phone] [facility] 084 Branch 2020-08-20 2020-08-20 Emergency X GENOVEVA [facility] E[facility] [id number] Univers 19:30:00 23:41:00 WAKILI ity of [facility] 2020-08-20 2020-08-20 Orders Doctor SARMAD 1.2.840.114 [id number] Univers 00:00:00 00:00:00 Only Unassigned, REJI 350.1.13.10 ity of [place] [facility] 4.2.7.2.686 [place] [id number] [facility] 009 Branch 2020-08-07 2020-08-07 Transition David Perez 1.2.840.114 [id number] Univers 00:00:00 00:00:00 of Care Xenia Hagen 350.1.13.10 ity of [place].2.[place].2.[place] [id number] [facility] 403 Branch 2020-08-04 2020-08-06 Inpatient X [facility] MIKE [id number] Univers 03:32:00 16:49:00 WASYL ity of [facility] 2020-08-04 2020-08-06 [facility], 1.2.840.3 [id number] Univers 03:32:00 16:49:00 Encounter Ruben 37600.1.1 it y of 3.104.2.7 [place] .3.752413 Medica l .8 Branch 2020-08-05 2020-08-05 Anesthesia Cj Cotto 1.2.840 .1 [id number] Univers 11:07:00 14:38:00 Event Jakub Lewis 76730.1.1 ity of 3.104.2.7 [place] .3.715502 Medica l .8 Branch 2020-08-04 2020-08-04 Emergency Albina Prcie 1.2.840.1 10 [id number] Univers 00:20:00 02:36:00 Ruben Tian 17389.1.1 ity of 3.104.2.7 [place] .3.386097 Medica l .8 Branch 2020-08-04 2020-08-04 Emergency X DEE [facility] [id number] Univers 00:20:00 00:20:00 FOLUSHO ity of [facility] 2020-08-04 2020-08-04 Travel 1.2.840.1 [id number] [id number] Univers 00:00:00 00:00:00 51331.1.1 350.1.13.10 ity of 3.104.2.7 4.2.7.3.698 [place] .[id number] 084.8 Medica l .8 [place] 2020-07-14 2020-07-14 Orders Doctor SARMAD 1.2.840.114 [id number] Univers 00:00:00 00:00:00 Only Unassigned, REJI 350.1.13.10 ity of [facility] 4.2.7.2.686 [place] [phone] [address] 2020-05-07 2020-05-07 Orders Doctor SARMAD 1.2.840.114 [id number] Univers 00:00:00 00:00:00 Only Unassigned, REJI 350.1.13.10 ity of [facility] [place] [facility] 4.2.7.2.686 [place] [id number] [address] 2014-12-28 2014-12-29 Outpatient [facility] [id number] Memoria 15:52:00 04:59:00 r Karan [address] [place] [address] 2014-12-28 2014-12-29 Outpatient [facility] [id number] Memoria 15:52:00 04:59:00 r Price 00 [facility] 2014-12-28 2014-12-28 Outpatient Sharath [facility] [id number] 10:52:00 23:59:00 Juan Antonio 00 Results This patient has no known results.
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
[2022-03-01] MEDS ORDERED: HYDROCODONE/APAP 10/325 TAB ONE (19:31)
[2022-03-01 19:40] VITALS: BP 151/88; TEMP 97.9; O2SAT 100
== END 2022-03-01 19:36 | disposition home or self-care (01) ==
LOC: ER 18:00
DX: S50.12XA Contusion of left forearm, initial encounter (principal); V47.5XXA Car driver injured in collision with fixed or stationary object in traffic accident, initial encounter; I10 Essential (primary) hypertension; F17.210 Nicotine dependence, cigarettes, uncomplicated; Z88.0 Allergy status to penicillin
CPT/HCPCS: 99283

== ENCOUNTER 2023-02-01 08:10 | Emergency (ER) | payer OTHER, SELFPAY ==
--- OUTSIDE RECORDS SUMMARY | 2023-02-01 08:16 | XMS REPORT | Continuity of Care Document ---
:1980 Author Organization [facility] t Address [address] [place] [address] Care Team Providers Name Role Phone Pcp, Patient Does Not Have A Primary Care Physician [phone] OLIVIA MITCHELL Attending Clinician Unavailable Cori Castillo LMSW Attending Clinician Unavailable CANDY ANNE Attending Clinician Unavailable Candy Rose Attending Clinician Doctor Unassigned, [place] Attending Clinician Unavailable MARY VILLAFANA Attending Clinician Unavailable SNEHAL WYMAN Attending Clinician Unavailable BENY CARR Attending Clinician Unavailable Beny Sanchez S Attending Clinician Olivia Mills Attending Clinician Lab, Ang - Db Attending Clinician Unavailable Snehal Wyman PA-C Attending Clinician HYACINTH CHIN Attending Clinician Unavailable Hyacinth Chin MD Attending Clinician 2, Adc Lab Attending Clinician Unavailable AUGUSTINE JARAMILLO Attending Clinician Unavailable Augustine Thomas Attending Clinician Bismark Chilel MD Attending Clinician BISMARK CHILEL Attending Clinician Unavailable [facility] Attending Clinician Unavailable Vikas Fleming MD Attending Clinician VIKAS FLEMING Attending Clinician Unavailable Xenia Perez Attending Clinician JUS TIAN Attending Clinician Unavailable Asmita HARRIS, Jus Attending Clinician Cj Cotto MD Attending Clinician [phone] Jakub Lewis MD Attending Clinician Albina Yañez Attending Clinician ALBINA PRICE Attending Clinician Unavailable Juan Antonio Early Attending Clinician BENY CARR Admitting Clinician Unavailable OLIVIA MITCHELL Admitting Clinician Unavailable JUS TIAN Admitting Clinician Unavailable Jus Tian MD Admitting Clinician Payers Payer Name Policy Type Policy Number Effective Date Expiration Date Justin oviedo [facility] [employer] [id number] 2022 00:00:00 HIM BCBS BLUE [id number] 2021 ADVANTAGE HMO 00:00:00 HIM AMBETTER FROM [id number] [facility] 00:00:[address] [facility] [facility] [id number] 2021 COMM 00:00:00 Problems Condition Condition Condition Status Onset Resolution Last Treating Co mments Source Name Details Category Date Date Treatment Clinician Date Obesity Obesity Disease Active Univers (BMI (BMI 5-10 ity of 30-39.9) 30-39.9) 00:00: [place] [address] [facility] Branch Epistaxis Epistaxis Disease Active Uni vers 5-09 ity of 00:00: [place] [address] Medical Branch VENTRICULO VENTRICUL Diagnosis Active 2014-12-28 ROBE Smith, 12-24 10:59:00 l ECHOGENIC ECHOGENIC 00:00: Herm swapna FOCUS IN FOCUS IN 00 HEA HEA Active 12/24/2014 [facility] Allergies, Adverse Reactions, Alerts Allergy Allergy Status Severity Reaction(s) Onset Inactive Treating Comm ents Source Name Type Date Date Clinician NO KNOWN Drug Active Univers ALLERGIE Class [facility] [place] [facility] Social History Social Habit Start Date Stop Date Quantity Comments Source History of tobacco Cigarette Smoker University of use [facility] Gender identity Universit y [facility] Sexual orientation Univer [facility] History of Social 2022-12-09 2022-12-09 [facility] ity of function 00:00:00 00:00:00 [facility] Exposure to 2022-07-27 2022-08-06 Not sure [facility] SARS-CoV-2 (event) 00:00:00 09:08:00 [facility] Alcohol intake 2021-08-18 2021-08-18 5.14 /d University 00:00:00 00:00:00 [facility] Cigarette 2021-07-29 2021-07-29 University of pack-years 00:00:00 00:00:00 [facility] Cigarettes smoked 2020-09-02 2020-09-02 [facility] it of current (pack per 00:00:00 00:00:00 [facility] ) - Reported Branch Tobacco use and 2020-09-02 2020-09-02 Smokeless Universit y of exposure 00:00:00 00:00:00 tobacco non-user [facility] [birth year] [facility] Smoking Status Start Date Stop Date Source Smokes tobacco daily 2020-09-02 00:00:00 [facility] Medications Ordered Filled Start Stop Current Ordering Indication Dosage Frequency Signature Comments Components Source Medication Medication Date Date Medication? Clinician (SIG) Name Name busPIRone 5 Yes [id number] 5mg Take 1 Univers mg tablet 9-13 tablet by ity o f 00:00: mouth 2 (two) Medical times Branch daily as needed (anxiety). busPIRone 5 Yes [id number] 5mg Take 1 Univers mg tablet 9-13 tablet by ity o f 00:00: mouth 2 (two) Medical times Branch daily as needed (anxiety). busPIRone 5 Yes [id number] 5mg Take 1 Univers mg tablet 9-13 tablet by ity o f 00:00: mouth 2 (two) Medical times Branch daily as needed (anxiety). naproxen 2022- No 500mg 500 mg, Univ ers (NAPROSYN) 08-06 05-11 Oral, ity of tablet 500 16:45: 15:49 ONCE, 1 [place] mg 00 :00 dose, On Medical Norma Branch 08/06/22 at 1145, Routine naproxen 2022-0 Yes [id number] 500mg Take 1 U nivers (NAPROSYN) 08-06 tablet by ity of 500 mg 00:00: mouth in [place] tablet 00 the morning Branch and 1 tablet in the evening. Take with meals. naproxen 2022-0 Yes [id number] 500mg Take 1 U nivers (NAPROSYN) 08-06 tablet by ity of 500 mg 00:00: mouth in [place] tablet 00 the morning Branch and 1 tablet in the evening. Take with meals. naproxen 2022-0 2022- No [id number] 500mg Take 1 Univers (NAPROSYN) 08-06 tablet by ity of 500 mg 00:00: 00:00 mouth in [place] tablet 00 :00 the morning Branch and 1 tablet in the evening. Take with meals. naproxen 2022-0 2022- No [id number] 500mg Take 1 Univers (NAPROSYN) 08-06 tablet by ity of 500 mg 00:00: 00:00 mouth in [place] tablet 00 :00 the morning Branch and 1 tablet in the evening. Take with meals. hydroCHLORO 2022-0 Yes [id number] 25mg Take 1 Univers thiazide 25 1-09 tablet by ity of mg tablet 00:00[place] the Medical morning. Branch hydroCHLORO 2022-0 Yes [id number] 25mg Take 1 Univers thiazide 25 1-09 tablet by [place]y of mg tablet 00:00[place] the Medical morning. Branch hydroCHLORO 2022-0 Yes [id number] 25mg Take 1 Univers thiazide 25 1-09 tablet by ity of mg tablet 00:00: [place] the Medical morning. Branch hydroCHLORO 2022-0 3- No [id number] 25mg Take 1 Univers thiazide 25 04-06 tablet by it y of mg tablet 00:00: 00:00 mouth in [place] 00 :00 the Medical morning. Branch hydroCHLORO 2022- No [id number] 25mg Take 1 Univers thiazide 25 04-06-13 tablet by it y of mg tablet 00:00: 00:00 mouth in [place] 00 :00 the Medical morning. Branch ergocalcife 2021-03 Yes [id number] Take 1 Univers rol, 2-08 capsule by ity of vitamin d2, 00:00: mouth [place] 1,250 mcg 00 weekly. Medical (50,000 Branch unit) capsule ergocalcife 2021-03 Yes [id number] Take 1 Univers rol, 2-08 capsule by ity of vitamin d2, 00:00: mouth [place] 1,250 mcg 00 weekly. Medical (50,000 Branch unit) capsule ergocalcife 2021-03 Yes [id number] Take 1 Univers rol, 2-08 capsule by ity of vitamin d2, 00:00: mouth [place] 1,250 mcg 00 weekly. Medical (50,000 Branch unit) capsule ergocalcife 2021-03 Yes [id number] Take 1 Univers rol, 2-08 capsule by ity of vitamin d2, 00:00: mouth [place] 1,250 mcg 00 weekly. Medical (50,000 Branch unit) capsule ergocalcife 2021-03- No [id number] Take 1 Univers rol, 2-08 -13 capsule by ity of vitamin d2, 00:00: 00:[place] 1,[place] mcg 00 :00 weekly. Medical (50,000 Branch unit) capsule ergocalcife 2021-03- No [id number] Take 1 Univers rol, 2-11 04-13 capsule by ity of vitamin d2, 00:00: 00:[place] 1,250 mcg 00 :00 weekly. Medical (50,000 Branch unit) capsule amLODIPine 2021-03 Yes [id number] 5mg Take 0.5 Univers 10 mg 2-06 tablets by ity of tablet 00:00: mouth in [place] 00 the Medical morning. Branch hydroCHLORO 2021-03 Yes [id number] 25mg Take 1 Univers thiazide 25 2-06 tablet by ity of mg tablet 00:00: [place] the Medical morning. Branch amLODIPine 2021-03 Yes [id number] 5mg Take 0.5 Univers 10 mg 2-06 tablets by ity of tablet 00:00: mouth in [place] 00 the Medical morning. Branch hydroCHLORO 2021- Yes [id number] 25mg Take 1 Univers thiazide 25 2-06 tablet by ity of mg tablet 00:00: mouth in [facility] 00 the Medical morning. Branch amLODIPine 2021- Yes [id number] 5mg Take 0.5 Univers 10 mg 2-06 tablets by ity of tablet 00:00: mouth in [place] 00 the Medical morning. Branch hydroCHLORO 2021- Yes [id number] 25mg Take 1 Univers thiazide 25 2-06 tablet by ity of mg tablet 00:00: mouth in [facility] 00 the Medical morning. Branch amLODIPine 2021- Yes [id number] 5mg Take 0.5 Univers 10 mg 2-06 tablets by ity of tablet 00:00: mouth in [place] 00 the Medical morning. Branch hydroCHLORO 2021- Yes [id number] 25mg Take 1 Univers thiazide 25 2-06 tablet by ity of mg tablet 00:00: mouth in [facility] the Medical morning. Branch amLODIPine 2021- Yes [id number] 5mg Take 0.5 Univers 10 mg 2-06 tablets by ity of tablet 00:00: mouth in [place] the Medical morning. Branch hydroCHLORO 2021- Yes [id number] 25mg Take 1 Univers thiazide 25 2-06 tablet by ity of mg tablet 00:00: mouth in [facility] 00 the Medical morning. Branch amLODIPine 2021- Yes [id number] 5mg Take 0.5 Univers 10 mg 2-06 tablets by ity of tablet 00:00: mouth in [place] 00 the Medical morning. Branch hydroCHLORO 2021- Yes [id number] 25mg Take 1 Univers thiazide 25 2-06 tablet by ity of mg tablet 00:00: mouth in [facility] 00 the Medical morning. Branch amLODIPine 2021-1 Yes [id number] 5mg Take 0.5 Univers 10 mg 2-06 tablets by ity of tablet 00:00: mouth in [place] [address] the Medical morning. Branch hydroCHLORO 2021-1 Yes [id number] 25mg Take 1 Univers thiazide 25 2-06 tablet by ity of mg tablet 00:00: mouth in [facility] 00 the Medical morning. Branch amLODIPine 2021- Yes [id number] 5mg Take 0.5 Univers 10 mg 2-06 tablets by ity of tablet 00:00: mouth in [place] 00 the Medical morning. Branch hydroCHLORO 2021-03 Yes [id number] 25mg Take 1 Univers thiazide 25 2-06 tablet by ity of mg tablet 00:00: mouth in [place] [address] the Medical morning. Branch amLODIPine 2021-03 Yes [id number] 5mg Take 0.5 Univers 10 mg 2-06 tablets by ity of tablet 00:00: mouth in [place] 00 the Medical morning. Branch hydroCHLORO 2021-03 Yes [id number] 25mg Take 1 Univers thiazide 25 2-06 tablet by ity of mg tablet 00:00: mouth in [facility] 00 the Medical morning. Branch amLODIPine 2021-03 Yes [id number] 5mg Take 0.5 Univers 10 mg 2-06 tablets by ity of tablet 00:00: mouth in [place] 00 the Medical morning. Branch amLODIPine 2021-03 Yes [id number] 5mg Take 0.5 Univers 10 mg 2-06 tablets by ity of tablet 00:00: mouth in [place] 00 the Medical morning. Branch amLODIPine 2021-03 Yes [id number] 5mg Take 0.5 Univers 10 mg 2-06 tablets by ity of tablet 00:00: mouth in [place] 00 the Medical morning. Branch amLODIPine 2021-03- No [id number] 5mg Take 0.5 Univers 10 mg 2-06 09-13 tablets by ity of tablet 00:00: 00:00 mouth in [place] 00 :00 the Medical morning. Branch amLODIPine 2021-03- No [id number] 5mg Take 0.5 Univers 10 mg 2-06 09-13 tablets by ity of tablet 00:00: 00:00 mouth in [place] 00 :00 the Medical morning. Branch hydroCHLORO 2021-2022- No [id number] 25mg Take 1 Univers thiazide 25 2-06 -09 tablet by it y of mg tablet 00:00: 00:00 mouth in [facility] 00 :00 the Medical morning. Branch amLODIPine 2021- Yes [id number] 10mg Take 1 U nivers 10 mg 1-07 tablet by ity of tablet 00:00: mouth in [place] 00 the Medical morning. Branch amLODIPine 2021- Yes [id number] 10mg Take 1 U nivers 10 mg 1-07 tablet by ity of tablet 00:00: mouth in [place] 00 the Medical morning. Branch amLODIPine 2021-03- No [id number] 10mg Take 1 Univers 10 mg 04-04 tablet by ity of tablet 00:00: 00:00 mouth in [place] 00 :00 the Medical morning. Branch amLODIPine 2021-03- No [id number] 10mg Take 1 Univers 10 mg 04-04 tablet by ity of tablet 00:00: 00:00 mouth in [place] 00 :00 the Medical morning. Branch amLODIPine 2021-03- No [id number] 10mg Take 1 Univers 10 mg 04-04 tablet by ity of tablet 00:00: 00:00 mouth in [place] 00 :00 the Medical morning. Branch amLODIPine 2021-03- No [id number] 10mg Take 1 Univers 10 mg 04-04 tablet by ity of tablet 00:00: 00:00 mouth in [place] 00 :00 the Medical morning. [place] amLODIPine Yes [id number] 10mg Take 1 U nivers 10 mg 5-03 tablet by ity of tablet 00:00: mouth [place] 00 daily. [facility] amLODIPine 2021- No [id number] 10mg Take 1 Univers 10 mg -06 06-07 tablet by ity of tablet 00:00: 00:00 mouth [place] 00 :00 daily. [facility] Immunizations Ordered Filled Date Status Comments Source Immunization Name Immunization Name Influenza Virus 2022-01-07 Completed Universit y of Vacc[facility] [place] [facility] 3+ 00:00:00 [facility] Influenza Virus 2022-01-07 Completed Universit y of Vaccine [place] IM 3+ 00:00:00 [facility] Influenza Virus 2022-01-07 Completed Universit y of Vaccine [place] IM 3+ 00:00:00 [facility] Influenza Virus 2022-01-07 Completed Universit y of Vaccine [place] IM 3+ 00:00:00 [facility] Influenza Virus 2022-01-07 Completed Universit y of Vaccine [place] IM 3+ 00:00:00 [facility] Influenza Virus 2022-01-07 Completed Universit y of Vaccine [place] IM 3+ 00:00:00 [facility] Influenza Virus 2022-01-07 Completed Universit y of Vaccine [place] IM 3+ 00:00:00 [facility] Influenza Virus 2022-01-07 Completed Universit y of Vaccine [place] IM 3+ 00:00:00 [facility] Influenza Virus 2022-01-07 Completed Universit y of Vaccine [place] IM 3+ 00:00:00 [facility] Influenza Virus 2022-01-07 Completed Universit y of Vaccine [place] IM 3+ 00:00:00 [facility] Influenza Virus 2022-01-07 Completed Universit y of Vaccine [place] IM 3+ 00:00:00 [facility] Influenza Virus 2022-01-07 Completed Universit y of Vaccine [place] IM 3+ 00:00:00 [facility] Influenza Virus 2022-01-07 Completed Universit y of Vaccine [place] IM 3+ 00:00:00 [facility] Influenza Virus 2022-01-07 Completed Universit y of Vaccine [place] IM 3+ 00:00:00 [facility] Influenza Virus 2022-01-07 Completed Universit y of Vaccine [place] IM 3+ 00:00:00 [facility] Pneumococcal 2021-07-29 Completed University o f Polysaccharide, 00:00:00 [place] Med ical PPSV23 (PNEUMOVAX) Branch [facility] 2021-07-29 Completed University of 00:00:00 [facility] Pneumococcal 2021-07-29 Completed University o f Polysaccharide, 00:00:00 [place] Med ical PPSV23 (PNEUMOVAX) Branch [facility] 2021-07-29 Completed University of 00:00:00 [facility] Pneumococcal 2021-07-29 Completed University o f Polysaccharide, 00:00:00 [place] Med ical PPSV23 (PNEUMOVAX) Branch [facility] 2021-07-29 Completed University of 00:00:00 [facility] Pneumococcal 2021-07-29 Completed University o f Polysaccharide, 00:00:00 [place] Med ical PPSV23 (PNEUMOVAX) Branch TDAP 2021-07-29 Completed University of 00:00:00 [facility] Pneumococcal 2021-07-29 Completed University o f Polysaccharide, 00:00:00 [place] Med ical PPSV23 (PNEUMOVAX) Branch AP 2021-07-29 Completed University of 00:00:00 [facility] Pneumococcal 2021-07-29 Completed University o f Polysaccharide, 00:00:00 [place] Med ical PPSV23 (PNEUMOVAX) Branch AP 2021-07-29 Completed University of 00:00:00 [facility] Pneumococcal 2021-07-29 Completed University o f Polysaccharide, 00:00:00 [place] Med ical PPSV23 (PNEUMOVAX) Branch TDAP 2021-07-29 Completed University of 00:00:00 [facility] Pneumococcal 2021-07-29 Completed University o f Polysaccharide, 00:00:00 [place] Med ical PPSV23 (PNEUMOVAX) Branch TDAP 2021-07-29 Completed University of 00:00:00 [facility] Pneumococcal 2021-07-29 Completed University o f Polysaccharide, 00:00:00 [place] Med ical PPSV23 (PNEUMOVAX) Branch TDAP 2021-07-29 Completed University of 00:00:00 [facility] Pneumococcal 2021-07-29 Completed University o f Polysaccharide, 00:00:00 [place] Med ical PPSV23 (PNEUMOVAX) Branch TDAP 2021-07-29 Completed University of 00:00:00 [facility] Pneumococcal 2021-07-29 Completed University o f Polysaccharide, 00:00:00 [place] Med ical PPSV23 (PNEUMOVAX) Branch TDAP 2021-07-29 Completed University of 00:00:00 [facility] Pneumococcal 2021-07-29 Completed University o f Polysaccharide, 00:00:00 [place] Med ical PPSV23 (PNEUMOVAX) Branch TDAP 2021-07-29 Completed University of 00:00:00 [facility] Pneumococcal 2021-07-29 Completed University o f Polysaccharide, 00:00:00 [place] Med ical PPSV23 (PNEUMOVAX) Branch TDAP 2021-07-29 Completed University of 00:00:00 [facility] Pneumococcal 2021-07-29 Completed University o f Polysaccharide, 00:00:00 [place] Med ical PPSV23 (PNEUMOVAX) Branch TDAP 2021-07-29 Completed University of 00:00:00 [facility] Pneumococcal 2021-07-29 Completed University o f Polysaccharide, 00:00:00 [place] Med ical PPSV23 (PNEUMOVAX) Branch TDAP 2021-07-29 Completed University of 00:00:00 [facility] Pneumococcal 2021-07-29 Completed University o f Polysaccharide, 00:00:00 [place] Med ical PPSV23 (PNEUMOVAX) Branch TDAP 2021-07-29 Completed University of 00:00:00 [facility] Pneumococcal 2021-07-29 Completed University o f Polysaccharide, 00:00:00 [place] Med ical PPSV23 (PNEUMOVAX) Branch TDAP 2021-07-29 Completed University of 00:00:00 [facility] Pneumococcal 2021-07-29 Completed University o f Polysaccharide, 00:00:00 [place] Med ical PPSV23 (PNEUMOVAX) Branch TDAP 2021-07-29 Completed University of 00:00:00 [facility] SARS-COV-2 COVID-19 2020-06-18 Completed Unive rsity of PFIZER VACCINE 00:00:00 [facility] SARS-COV-2 COVID-19 2020-06-18 Completed Unive rsity of PFIZER VACCINE 00:00:00 [facility] SARS-COV-2 COVID-19 2020-06-18 Completed Unive rsity of PFIZER VACCINE 00:00:00 [facility] SARS-COV-2 COVID-19 2020-06-18 Completed Unive rsity of PFIZER VACCINE 00:00:00 [facility] SARS-COV-2 COVID-19 2020-06-18 Completed Unive rsity of PFIZER VACCINE 00:00:00 [facility] SARS-COV-2 COVID-19 2020-06-18 Completed Unive rsity of PFIZER VACCINE 00:00:00 [facility] SARS-COV-2 COVID-19 2020-06-18 Completed Unive rsity of PFIZER VACCINE 00:00:00 [facility] SARS-COV-2 COVID-19 2020-06-18 Completed Unive rsity of PFIZER VACCINE 00:00:00 [facility] SARS-COV-2 COVID-19 2020-06-18 Completed Unive rsity of PFIZER VACCINE 00:00:00 [facility] SARS-COV-2 COVID-19 2020-06-18 Completed Unive rsity of PFIZER VACCINE 00:00:00 [facility] SARS-COV-2 COVID-19 2020-06-18 Completed Unive rsity of PFIZER VACCINE 00:00:00 [facility] SARS-COV-2 COVID-19 2020-06-18 Completed Unive rsity of PFIZER VACCINE 00:00:00 [place] [facility] SARS-COV-2 COVID-19 2020-06-18 Completed Unive rsity of PFIZER VACCINE 00:00:00 [facility] [place] [facility] SARS-COV-2 COVID-19 2020-06-18 Completed Unive rsity of PFIZER VACCINE 00:00:00 [facility] [place] Branch SARS-COV-2 COVID-19 2020-06-18 Completed Unive rsity of PFIZER VACCINE 00:00:00 [facility] [place] [facility] SARS-COV-2 COVID-19 2020-06-18 Completed Unive rsity of PFIZER VACCINE 00:00:00 [facility] [place] [facility] SARS-COV-2 COVID-19 2020-06-18 Completed Unive rsity of PFIZER VACCINE 00:00:00 [facility] [place] [facility] SARS-COV-2 COVID-19 2020-06-18 Completed Unive rsity of PFIZER VACCINE 00:00:00 [facility] [place] [facility] SARS-COV-2 COVID-19 2020-05-07 Completed Unive rsity of PFIZER VACCINE 00:00:00 [facility] [place] [facility] SARS-COV-2 COVID-19 2020-05-07 Completed Unive rsity of PFIZER VACCINE 00:00:00 [facility] [place] [facility] SARS-COV-2 COVID-19 2020-05-07 Completed Unive rsity of PFIZER VACCINE 00:00:00 [facility] [place] [facility] SARS-COV-2 COVID-19 2020-05-07 Completed Unive rsity of PFIZER VACCINE 00:00:00 [facility] [place] [facility] SARS-COV-2 COVID-19 2020-05-07 Completed Unive rsity of PFIZER VACCINE 00:00:00 [facility] [place] [facility] SARS-COV-2 COVID-19 2020-05-07 Completed Unive rsity of PFIZER VACCINE 00:00:00 [facility] [place] [facility] SARS-COV-2 COVID-19 2020-05-07 Completed Unive rsity of PFIZER VACCINE 00:00:00 [facility] [place] [facility] SARS-COV-2 COVID-19 2020-05-07 Completed Unive rsity of PFIZER VACCINE 00:00:00 [facility] [place] [facility] SARS-COV-2 COVID-19 2020-05-07 Completed Unive rsity of PFIZER VACCINE 00:00:00 [facility] SARS-COV-2 COVID-19 2020-05-07 Completed Unive rsity of PFIZER VACCINE 00:00:00 [facility] SARS-COV-2 COVID-19 2020-05-07 Completed Unive rsity of PFIZER VACCINE 00:00:00 [facility] SARS-COV-2 COVID-19 2020-05-07 Completed Unive rsity of PFIZER VACCINE 00:00:00 [facility] SARS-COV-2 COVID-19 2020-05-07 Completed Unive rsity of PFIZER VACCINE 00:00:00 [facility] SARS-COV-2 COVID-19 2020-05-07 Completed Unive rsity of PFIZER VACCINE 00:00:00 [facility] SARS-COV-2 COVID-19 2020-05-07 Completed Unive rsity of PFIZER VACCINE 00:00:00 [facility] SARS-COV-2 COVID-19 2020-05-07 Completed Unive rsity of PFIZER VACCINE 00:00:00 [facility] SARS-COV-2 COVID-19 2020-05-07 Completed Unive rsity of PFIZER VACCINE 00:00:00 [facility] SARS-COV-2 COVID-19 2020-05-07 Completed Unive rsity of PFIZER VACCINE 00:00:00 [facility] Pneumococcal Unknown Completed [facility] PPSV23 (PNEUMOVAX) Branch TDAP Unknown Completed [facility] SARS-COV-2 COVID-19 Unknown Completed Unive rsity of PFIZER VACCINE [facility] SARS-COV-2 COVID-19 Unknown Completed Unive rsity of PFIZER VACCINE [facility] SARS-COV-2 COVID-19 Unknown Completed Unive rsity of PFIZER VACCINE [facility] SARS-COV-2 COVID-19 Unknown Completed Unive rsity of PFIZER VACCINE [facility] Vital Signs Vital Name Observation Time Observation Value Comments Source Systolic blood 2022-12-09 18:06:00 121 mm[Hg] Univer sity of pressure [facility] Diastolic blood 2022-12-09 18:06:00 74 mm[Hg] Unive rsity of pressure [facility] Heart rate 2022-12-09 18:06:00 68 /min [facility] Body height 2022-12-09 18:06:00 162.6 cm [facility] Body weight 2022-12-09 18:06:00 101.56 kg [facility] [place] [facility] BMI 2022-12-09 18:06:00 38.43 kg/m2 [facility] [place] [facility] Oxygen saturation in 2022-12-09 18:06:00 99 /min University of Arterial blood by [facility] [place] Pulse oximetry Branch Systolic blood 2022-08-06 14:09:00 136 mm[Hg] Univer sity of pressure [place] [facility] Diastolic blood 2022-08-06 14:09:00 90 mm[Hg] Unive rsity of pressure [place] [facility] Heart rate 2022-08-06 14:09:00 81 /min [facility] [place] [facility] Body temperature 2022-08-06 14:09:00 36.72 Nani Univ ersity of [place] [facility] Respiratory rate 2022-08-06 14:09:00 16 /min Univ ersity of [place] [facility] Body height 2022-08-06 14:09:00 162.6 cm [facility] [place] [facility] Body weight 2022-08-06 14:09:00 101.515 kg [facility] [place] [facility] BMI 2022-08-06 14:09:00 38.42 kg/m2 [facility] [place] [facility] Oxygen saturation in 2022-08-06 14:09:00 100 /min University of Arterial blood by [facility] [place] Pulse oximetry Branch Systolic blood 2022-03-03 17:01:00 118 mm[Hg] Univer sity of pressure [place] [facility] Diastolic blood 2022-03-03 17:01:00 80 mm[Hg] Unive rsity of pressure [place] [facility] Heart rate 2022-03-03 17:01:00 86 /min [facility] [place] [facility] Body height 2022-03-03 17:01:00 165.1 cm [facility] [place] [facility] Body weight 2022-03-03 17:01:00 100.517 kg [facility] BMI 2022-03-03 17:01:00 36.88 kg/m2 [facility] Oxygen saturation in 2022-03-03 17:01:00 100 /min [facility] Arterial blood by [facility] Pulse oximetry Branch Procedures Procedure Date / Time Performed Performing Clinician [facility] e ASSIGNMENT OF BENEFITS 2022-12-09 18:03:12 Doctor Unassigned, No [facility] XR CHEST 1 VW 2022-08-06 14:46:00 Beny Carr Vandiver o f [facility] POCT TEST 2022-08-06 14:46:00 Beny Carr [facility] CONSENT/REFUSAL FOR 2022-08-06 14:02:04 Doctor Unassigned, No [facility] DIAGNOSIS AND [facility] TREATMENT COMP. METABOLIC PANEL 2022-03-04 14:40:00 [facility] ([id number]) [facility] Er ASSIGNMENT OF BENEFITS 2022-03-03 16:48:07 Doctor Unassigned, No [facility] Encounters Start End Encounter Admission Attending Care Care Encounter Source Date/Time Date/Time Type Type Clinicians Facility Department ID 2022-12-29 2022-12-29 Outpatient R STEPHEN [facility] [id number] Univers 16:30:00 16:30:00 OLIVIA cervantes [facility] 2022-12-10 2022-12-10 Patient Anna [facility] 1.2.840.114 [id number] Univers 00:00:00 00:00:00 Outreach Cori [place] 350.1.13.10 itmaryam [facility] 4.2.7.2.686 Marii GERMAIN [id number] [address] 2022-12-09 2022-12-09 [facility] [id number] Univers 13:00:00 13:37:34 CANDY cervantes [facility] 2022-12-09 2022-12-09 [facility] 1.2.840.114 [id number] Univers 13:00:00 13:37:34 Visit Candy Smyth [facility] 350.1.13.10 i [place] 4.2.7.2.686 [place] JASON?BLEA [id number] [address] MEDICAL OFFICE BUILDING 2022-12-09 2022-12-09 Orders Doctor BAÑUELOS 1.2.840.114 [id number] Univers 00:00:00 00:00:00 Only UnassignedREJI 350.1.13.10 [facility] of [facility] 4.2.7.2.686 [place] [phone] [facility] 00[address] Branch 2022-10-05 2022-10-05 Outpatient R LEDY MARY [facility] [id number] Univers 08:00:00 08:00:00 ity [facility] 2022-09-01 2022-09-01 Outpatient R STEPHEN [facility] [id number] Univers 15:00:00 15:00:00 OLIVIA ity [facility] 2022-08-18 2022-08-18 Outpatient R GARO [facility] [id number] Univers 14:00:00 14:00:00 SNEHAL [facility] 2022-08-06 2022-08-06 Emergency X HELLEN [facility] ERT [id number] Univers 09:11:00 11:00:00 BENY itmaryam [facility] 2022-08-06 2022-08-06 Emergency [facility] 1.2.675.860 [id number] Univers 09:11:00 11:00:00 Beny [place] 350.1.13.10 i ty of [place] [id number] [facility] [address] 2022-04-06 2022-04-06 [facility] 1.2.840.114 [id number] Univers 00:00:00 00:00:00 Olivia HEALTH 350.1.13.10 it y of [place] 4.2.7.2.686 [place] JASON?BLEA [phone] Az wallylois ANNY [address] MEDICAL OFFICE [facility] 2022-03-05 2022-03-05 Sales Facilitator Lab, Ang - Db [facility] 1.2.840.1 14 [id number] Univers 09:00:00 09:15:00 Visit Olivia Mitchell HEALTH 350.1.13.10 ity of [place] 4.2.7.2.686 [place] JASON?BLEA [phone] Az nupur [facility] [address] [facility] OFFICE [facility] 2022-03-05 2022-03-05 Outpatient R [facility] [id number] Univers 09:00:00 09:00:00 OLIVIA cervantes [facility] 2022-03-05 2022-03-05 Letter [facility] 1.2.840.114 [id number] Univers 00:00:00 00:00:00 (Out) Olivia PASTOR 350.1.13.10 it y of [place] 4.2.7.2.686 [place] JASON?BLEA [phone] [facility] [address] MEDICAL OFFICE [facility] 2022-03-04 2022-03-04 Sales Facilitator Lab, Ang - Db [facility] 1.2.840.1 [id number] [facility] 08:45:00 08:47:17 Visit Olivia Mitchell 350.1.13.10 ity of [place] 4.2.7.2.686 [place] JASON?BLEA [id number] Az nupur [facility] [address] [facility] OFFICE [facility] 2022-03-04 2022-03-04 Outpatient R STEPHEN [facility] [id number] Univers 08:45:00 08:45:00 OLIVIA cervantes [facility] 2022-03-04 2022-03-04 Telephone [facility] 1.2.978.955 [id number] [facility] 00:00:00 00:00:00 Olivia PASTOR 350.1.13.10 it y of [place] 4.2.7.2.686 [place] JASON?BLEA [id number] [address] OFFICE [facility] 2022-03-03 2022-03-03 Outpatient R [facility] [id number] Univers 11:00:00 11:23:31 OLIVIA cervantes [facility] 2022-03-03 2022-03-03 Office [facility] 1.2.840.114 [id number] Univers 11:00:00 11:23:31 Visit Olivia PASTOR 350.1.13.10 it y of [place] 4.2.7.2.686 [place] JASON?BLEA [phone] [address] OFFICE [facility] 2022-03-03 2022-03-03 Orders Doctor BAÑUELOS 1.2.840.114 [id number] Univers 00:00:00 00:00:00 Only Unassigned, REJI 350.1.13.10 ity of [facility] 4.2.7.2.686 [place] [id number] [address] 2022-02-02 2022-02-02 Telephone [facility] 1.2.992.136 [id number] Univers 00:00:00 00:00:00 Olivia L[place] 350.1.13.10 i ty [place] [phone] Az dical NAL 044 [facility] 2021-08-27 2021-08-27 Telephone [facility] 1.2.840.114 [id number] Univers 00:00:00 00:00:00 Snehal [place] 350.1.13.10 i ty [place] [id number] Az dical NAL 134 [facility] 2021-08-26 2021-08-26 Outpatient R RISHI, [facility] [id number] Univers 09:51:30 23:59:00 HYACINTH cervantes o [facility] 2021-08-26 2021-08-26 Out[facility] [id number] Univers 09:51:30 23:59:00 HYACINTH cervantes o [facility] 2021-08-26 2021-08-26 Outpatient R [facility] [id number] Univers 00:00:00 00:00:00 OLIVIA cervantes of [facility] 2021-08-26 2021-08-26 Patient [facility] 1.2.840.114 [id number] Univers 00:00:00 00:00:00 Secure Msg Hyacinth [place] 350.1.13.10 ity of [place] [id number] Az dical NAL 059 [facility] 2021-08-19 2021-08-19 Orders Doctor BAÑUELOS 1.2.840.114 [id number] Univers 00:00:00 00:00:00 Only Unassigned, REJI 350.1.13.10 ity of [facility] 4.2.7.2.686 [place] [phone] [address] 2021-08-18 2021-08-18 Sales Facilitator 2, Becky Lab [facility] 1.2.840.114 [id number] Univers 15:00:00 15:15:00 Visit Snehal Wyman 350.1.13.10 ity [place] [phone] Me dical NAL 353 [facility] 2021-08-18 2021-08-18 Outpatient R GARO [facility] [id number] Univers 14:00:00 14:51:01 SNEHAL helen [facility] 2021-08-18 2021-08-18 Office Garo [facility] 1.2.946.447 [id number] Univers 14:00:00 14:51:01 Visit Snehal [place] 350.1.13.10 i ty [place] [phone] Az dical NAL 134 [facility] 2021-08-18 2021-08-18 Outpatient R GARO [facility] [id number] Univers 14:00:00 14:51:01 SNEHAL cervantes [facility] 2021-08-18 2021-08-18 Outpatient R GARO [facility] [id number] Univers 14:00:00 14:51:01 SNEHAL cervantes [facility] 2021-08-11 2021-08-11 Outpatient R RISHI [facility] [id number] Univers 08:40:00 09:50:11 HYACINTH cervantes o f [facility] 2021-08-11 2021-08-11 Office Rishi [facility] 1.2.840.114 [id number] Univers 08:40:00 09:50:11 Visit Hyacinth [place] 350.1.13.10 ity of [place] [phone] Az dical NAL 059 [facility] 2021-07-30 2021-07-30 Sales Facilitator Lab, Oswaldo Glez [facility] 1.2.840.1 [id number] Univers 08:30:00 08:45:00 Visit Olivia Mitchell 350.1.13.10 [facility] 4.2.7.2.686 [place] JASON?BLEA [phone] Az nupur [facility] [address] [facility] OFFICE [facility] 2021-07-30 2021-07-30 Outpatient R [facility] [id number] Univers 08:30:00 08:30:00 ity of [facility] 2021-07-30 2021-07-30 Outpatient R [facility] [id number] Univers 08:30:00 08:30:00 OLIVIA itmaryam [facility] 2021-07-29 2021-07-29 Outpatient R [facility] [id number] Univers 13:00:00 15:30:49 OLIVIA itmaryam [facility] 2021-07-29 2021-07-29 Office [facility] 1.2.840.114 [id number] Univers 13:00:00 13:30:00 Visit Olivia PASTOR 350.1.13.10 it y [facility] 4.2.7.2.686 [place] JASON?BLEA [id number] Az nupur [facility] [address] [facility] OFFICE [facility] 2021-07-29 2021-07-29 Outpatient R [facility] [id number] Univers 13:00:00 13:00:00 OLIVIA ity [facility] 2021-07-01 2021-07-01 Emergency X [facility] ERT [id number] Univers 18:28:00 19:13:00 AUGUSTINE ity of [facility] 2021-07-01 2021-07-01 Emergency [facility] 1.2.319.934 [id number] Univers 18:28:00 19:13:00 Augustine R [place] 350.1.13.10 i ty of [place] [id number] [facility] [address] 2021-07-01 2021-07-01 Emergency X [facility] ERT [id number] Univers 18:28:00 19:13:00 AUGUSTINE ity of [facility] 2021-07-01 2021-07-01 Orders Doctor SARMAD 1.2.840.114 [id number] Univers 00:00:00 00:00:00 Only Unassigned, REJI 350.1.13.[address] [place] [facility] 4.2.7.2.686 [place] [phone] [facility] [address] 2021-06-02 2021-06-02 [facility] 1.2.840.114 [id number] Univers 00:00:00 00:00:00 Bismark TORRES 350.1.13.10 i ty of [facility] [place] [id number] [facility] [address] 2021-01-24 2021-01-24 Orders Doctor SARMAD 1.2.840.114 [id number] Univers 00:00:00 00:00:00 Only Unassigned, REJI 350.1.13.[address] [place] [facility] 4.2.7.2.686 [place] [id number] [address] 2021-01-24 2021-01-24 Refill Ranjana [facility] 1.2.840.114 [id number] Univers 00:00:00 00:00:00 Bismark TORRES 350.1.13.10 i ty of [facility] [place].2.[place] [id number] [address] 2020-11-25 2020-11-25 Patient Doctor [facility] 1.2.840.114 [id number] Univers 00:00:00 00:00:00 Secure Msg UnassignedMELISSA 350.1.13.10 [place] of [place] [facility] [place].2.[place] [id number] [address] 2020-11-19 2020-11-19 Refyolanda Chilel [facility] 1.2.840.114 [id number] Univers 00:00:00 00:00:00 Bismark Rm 350.1.13.10 it y of [facility] 4.2.7.2.686 [place]eno as BANK [phone] [facility]. [address] 2020-10-07 2020-10-07 Office [facility] 1.2.840.114 [id number] Univers 15:21:22 15:36:22 Visit Bismark Rm 350.1.13.10 it y of [place] 4.2.7.2.686 [place] BANK [phone] [facility]. [address] [place] [address] 2020-10-07 2020-10-07 Outpatient Nimo [facility] [id number] Univers 15:30:00 15:30:00 BISMARK cervantes [facility] 2020-09-10 2020-09-10 Refill [facility] 1.2.840.114 [id number] Univers 00:00:00 00:00:00 Bismark TORRES 350.1.13.10 i ty of [facility] [place].2.[place] [id number] [address] 2020-09-04 2020-09-04 Telephone [facility] 1.2.840.114 [id number] Univers 00:00:00 00:00:00 Bismark TORERS 350.1.13.10 i ty of [facility] [place].2.[place] [id number] [address] 2020-09-02 2020-09-02 Office [facility] 1.2.840.114 [id number] Univers 15:53:58 16:52:59 Visit Bismark Rm 350.1.13.10 it y of [place] 4.2.7.2.686 [place] BANK [id number] [address] 2020-09-02 2020-09-02 Outpatient Nimo [facility] [id number] Univers 15:45:00 15:45:00 BISMARK cervantes [facility] 2020-09-02 2020-09-02 Orders Doctor BAÑUELOS 1.2.840.114 [id number] Univers 00:00:00 00:00:00 Only Unassigned, REJI 350.1.13.[address] [place] [facility] 4.2.7.2.686 [place] [phone] [address] 2020-08-21 2020-08-21 Telephone DARA Enriquez 1.2.840.114 [id number] Univers 00:00:00 00:00:00 Ir Clinic Y HEALTH 350.1.13.10 ity of [place] [id number] [facility] [address] 2020-08-20 2020-08-20 Emergency [facility] 1.2.148.257 [id number] Univers 19:30:00 23:41:00 [facility] [place] 350.1.13.10 ity of [place].2.[place] [id number] [facility] [address] 2020-08-20 2020-08-20 Emergency X [facility] [id number] Univers 19:30:00 23:41:00 WAKILI ity [facility] 2020-08-20 2020-08-20 Orders Doctor SARMAD 1.2.840.114 [id number] Univers 00:00:00 00:00:00 Only Unassigned, REJI 350.1.13.[address] [place] [facility] 4.2.7.2.686 [place] [id number] [facility] [address] 2020-08-07 2020-08-07 Transition David Perez 1.2.840.114 [id number] Univers 00:00:00 00:00:00 of Care Xenia Hagen 350.1.13.10 ity of [place].2.[place] [id number] [facility] [address] 2020-08-04 2020-08-06 Inpatient X [facility] [id number] Univers 03:32:00 16:49:00 WASYL ity of [facility] 2020-08-04 2020-08-06 Formerly [facility], 1.2.840.5 [id number] Univers 03:32:00 16:49:00 Encounter Wasyl 68723.1.1 it y of 3.104.2.7 [place] .3.933084 Medica l .8 Branch 2020-08-05 2020-08-05 Anesthesia Cj Cotto 1.2.840 .9 [id number] Univers 11:07:00 14:38:00 Event Jakub Lewis 86031.1.1 ity of 3.104.2.7 [place] .3.948210 Medica l .8 Branch 2020-08-04 2020-08-04 Emergency Albina Price 1.2.840.1 10 [id number] Univers 00:20:00 02:36:00 Jus Tian 25391.1.1 ity of 3.104.2.7 [place] .3.407990 Medica l .8 Branch 2020-08-04 2020-08-04 Emergency X DEE [facility] ERT [id number] Univers 00:20:00 00:20:00 FOLUSHO ity of [facility] 2020-08-04 2020-08-04 Travel 1.2.840.1 1.2.671.835 [id number] Univers 00:00:00 00:00:00 61285.1.1 350.1.13.10 ity of 3.104.2.7 4[place].3.698 [place] .3.772798 084.8 Medica l .[address] [place] 2020-07-14 2020-07-14 Orders Doctor SARMAD 1.2.840.114 [id number] Univers 00:00:00 00:00:00 Only Unassigned, REJI 350.1.13.10 [place] of [place] [facility] 4.2.7.2.686 [place] [id number] [address] 2020-05-07 2020-05-07 Orders Doctor SARMAD 1.2.840.114 [id number] Univers 00:00:00 00:00:00 Only Unassigned, REJI 350.1.13.10 it[place] of [place] HOSPITAL 4.2.7.2.686 [place] [id number] [address] 2014-12-28 2014-12-29 Outpatient [facility] [id number] Memoria 15:52:00 04:59:00 nimo Russo 00 l [facility] 2014-12-28 2014-12-29 Outpatient [place] [id number] Memoria 15:52:00 04:59:00 [facility] 00 l [facility] 2014-12-28 2014-12-28 Outpatient Sharath [facility] [id number] 10:52:00 23:59:00 Juan Antonio 00 Results Test Description Test Time Test Comments Results Result Comments Source POCT TEST 2022-08-06 14:46:00 Test Item Value Reference Range Interpretation Comme nts POCT PREG (test code = 1605) Negative On board controls acceptable with C Line (test code = 3574) Yes POCT PREG LOT # (test code = 3575) [id number] POCT PREG TEST DATE (test code = 3576) 11-04-2023 Lab Interpretation (test code = 55500-5) Normal [facility] [place]. METABOLIC PANEL (68266)2022-03-04 20:16:34 Test Item Value Reference Range Interpretation Comments NA (test code = 139 mmol/L 135-145 8414262490) K (test code = 4.7 mmol/L 3.5-5.0 0816366406) CL (test code = 106 mmol/L 98-108 3731769299) CO2 TOTAL (test code = 21 mmol/L 23-31 L 0038934942) AGAP (test code = 2-16 8958976471) BUN (test code = 18 mg/dL 7-23 2118197037) GLUCOSE (test code = 95 mg/dL 70-110 7085395986) CREATININE (test code = 0.60 mg/dL 0.50-1.04 7886365592) TOTAL BILI (test code = 0.6 mg/dL 0.1-1.1 9470030759) CALCIUM (test code = 9.3 mg/dL 8.6-10.6 0308499337) T PROTEIN (test code = 7.4 g/dL 6.3-8.2 2862025030) ALBUMIN (test code = 4.5 g/dL 3.5-5.0 4660551492) ALK PHOS (test code = 90 U/L 34-122 8395700118) ALTv (test code = 30 U/L 5-35 1742-6) AST(SGOT) (test code = 29 U/L 13-40 6723069780) eGFR (test code = mL/min/1.73m2 1103590964) OUMOU (test code = OUMOU) Association of Glomerular Filtration Rate (GFR) and Staging of Kidney Disease* + --+ --+ ------+| GFR (mL/min/1.73 m2) ?| With Kidney Damage ?| ?Without Kidney Damage+ --------+ --------+ +| ?>90 ?| ?Stage one ?| ? Normal ?+ ---+ ---+ -------+| ?60-89 ?| ?Stage two ?| ? Decreased GFR ? + --+ --+ ------+| ?30-59 ?| ?Stage three ?| ? Stage three ? + --+ --+ ------+| ?15-29 ?| ?Stage four ? | ? Stage four ?+ ---+ ---+ -------+| ?<15 (or dialysis) ? ?| ?Stage five ? | ? Stage five ?+ ---+ ---+ -------+ *Each stage assumes the associated GFR level has been in effect for at least three months. ?Stages 1 to 5, with or without kidney disease, indicate chronic kidney disease. Notes: Determination of stages one and two (with eGFR >59mL/min/1.73 m2) requires estimation of kidney damage for at least three months as defined by structural or functional abnormalities of the kidney, manifested by either:Pathological abnormalities or Markers of kidney damage (including abnormalities in the composition of the blood or urine or abnormalities in imaging tests). Lab Interpretation Abnormal (test code = 98847-0) [facility] [place]. METABOLIC PANEL (88603)2022-03-04 20:16:34 Test Item Value Reference Range Interpretation Comments NA (test code = 139 mmol/L 135-145 4894928563) K (test code = 4.7 mmol/L 3.5-5.0 0028068467) CL (test code = 106 mmol/L 98-108 4891625277) CO2 TOTAL (test code = 21 mmol/L 23-31 L 5012522799) AGAP (test code = 2-16 3873520539) BUN (test code = 18 mg/dL 7-23 0899646926) GLUCOSE (test code = 95 mg/dL 70-110 3575950746) CREATININE (test code = 0.60 mg/dL 0.50-1.04 2251011931) TOTAL BILI (test code = 0.6 mg/dL 0.1-1.9 0603755898) CALCIUM (test code = 9.3 mg/dL 8.6-10.6 0381612556) T PROTEIN (test code = 7.4 g/dL 6.3-8.2 1182037438) ALBUMIN (test code = 4.5 g/dL 3.5-5.0 5094374712) ALK PHOS (test code = 90 U/L 34-122 0910202053) ALTv (test code = 30 U/L 5-35 1742-6) AST(SGOT) (test code = 29 U/L 13-40 5668197104) eGFR (test code = mL/min/1.73m2 8394128743) OUMOU (test code = OUMOU) Association of Glomerular Filtration Rate (GFR) and Staging of Kidney Disease* + --+ --+ ------+| GFR (mL/min/1.73 m2) ?| With Kidney Damage ?| ?Without Kidney Damage+ --------+ --------+ +| ?>90 ?| ?Stage one ?| ? Normal ?+ ---+ ---+ -------+| ?60-89 ?| ?Stage two ?| ? Decreased GFR ? + --+ --+ ------+| ?30-59 ?| ?Stage three ?| ? Stage three ? + --+ --+ ------+| ?15-29 ?| ?Stage four ? | ? Stage four ?+ ---+ ---+ -------+| ?<15 (or dialysis) ? ?| ?Stage five ? | ? Stage five ?+ ---+ ---+ -------+ *Each stage assumes the associated GFR level has been in effect for at least three months. ?Stages 1 to 5, with or without kidney disease, indicate chronic kidney disease. Notes: Determination of stages one and two (with eGFR >59mL/min/1.73 m2) requires estimation of kidney damage for at least three months as defined by structural or functional abnormalities of the kidney, manifested by either:Pathological abnormalities or Markers of kidney damage (including abnormalities in the composition of the blood or urine or abnormalities in imaging tests). Lab Interpretation Abnormal (test code = 58774-9) [facility]"
[2023-02-01 08:41] LABS: Absolute Lymphocytes (CBC) 1.6 K/uL (0.7-4.9); Hematocrit 44.5 % (36.0-45.0); MCV 94.4 fL (80-100); MPV 8.8 fL (7.6-11.3); Platelets 218 thou/uL (152-406); RBC Red Blood Cell Count 4.71 M/uL (3.86-4.86)
[2023-02-01] MEDS ORDERED: ASPIRIN 81 MG CHEWABLE TABLET ONE (08:41)
[2023-02-01 08:43] LABS: Protime INR 1.01
--- NOTE | 2023-02-01 09:07 | RAD REPORT ---
EXAM DESCRIPTION: RAD - Chest Single View - 02/01/2023 8:59 am CLINICAL HISTORY: CHEST PAIN Chest pain. COMPARISON: Chest Single View dated 02/25/2022; Chest Single View dated 01/22/2019; Chest Single Vie w dated 12/20/2017; CHEST PA AND LAT 2 VIEW dated 01/03/2011 FINDINGS: Portable technique limits examination quality. The lungs are grossly clear. The heart is normal in size. No displaced fractures. IMPRESSION: No acute intrathoracic process suspected.
--- NOTE | 2023-02-01 09:09 | RAD REPORT ---
EXAM DESCRIPTION: RAD - Hand Left 3 View - 02/01/2023 9:00 am CLINICAL HISTORY: SMASH INJURY COMPARISON: Hand Left 3 View dated 03/01/2022 FINDINGS: Mild soft tissue swelling is seen in the region of the fifth finger. No acute fracture or dislocation seen.
[2023-02-01 09:29] LABS: Albumin 3.5 g/dL (3.4-5.0); Bilirubin Direct 0.1 mg/dL (0-0.2); Bilirubin Indirect, Calculated 0.3 mg/dL (0.2-0.8); Bilirubin Total 0.4 mg/dL (0.2-1.0); Protein, Total 7.4 g/dL (6.4-8.2); Troponin High Sensitivity 6.1 pg/mL (<58.9)
--- NOTE | 2023-02-01 09:39 | EDPHYS ---
Physician Documentation [facility] Name: Jaky Mcconnell Age: 42 yrs Sex: Female : 1980 Arrival Date: 02/01/2023 Time: 08:10 Bed 2 Private MD: ED Physician Alberto Wallace HPI: 02/01 08:30 This 42 yrs old Black Female presents to ER via Ambulatory with complaints of Chest jh7 Pain. 08:30 Onset: The symptoms/episode began/occurred yesterday. Associated signs and symptoms: jh7 Pertinent positives: chest pain, Pertinent negatives: cough, fever, shortness of breath, vomiting, wheezing. 42-year-old female presents to the ER complaining of intermittent chest pain since yesterday at 2 PM. Reports that this is occurred multiple times and that she normally just sits at home until it resolves. She reports that this episode has continued longer than the past once. Reports that at lunch yesterday she believes she drank too fast and it felt like an air bubble in her chest. She states that she is a smoker and has a history of hypertension, however, she is not on any medication as of 1 month ago. Also states that she jammed her left pinky yesterday and would like to get an x-ray.. Historical: - Allergies: 08:29 PENICILLINS; iw - PMHx: 08:29 Hypertension; iw - Immunization history:: Adult Immunizations unknown. - Social history:: Smoking status: unknown. ROS: 08:30 Constitutional: Negative for fever, chills, and weight loss, Eyes: Negative for injury, jh7 pain, redness, and discharge, ENT: Negative for injury, pain, and discharge, Neck: Negative for injury, pain, and swelling, Respiratory: Negative for shortness of breath, cough, wheezing, and pleuritic chest pain, Abdomen/GI: Negative for abdominal pain, nausea, vomiting, diarrhea, and constipation, Back: Negative for injury and pain, Skin: Negative for injury, rash, and discoloration, Neuro: Negative for headache, weakness, numbness, tingling, and seizure, 08:30 Cardiovascular: Positive for chest pain, 08:30 MS/extremity: Positive for pain, tenderness, of the left 5th digit, 08:30 All other systems are negative, Exam: 08:30 Constitutional: This is a well developed, well nourished patient who is awake, alert, jh7 and in no acute distress. Head/Face: Normocephalic, atraumatic. ENT: Nares patent. No nasal discharge, no septal abnormalities noted. Tympanic membranes are normal and external auditory canals are clear. Oropharynx with no redness, swelling, or masses, exudates, or evidence of obstruction, uvula midline. Mucous membranes moist. Neck: Trachea midline, no thyromegaly or masses palpated, and no cervical lymphadenopathy. Supple, full range of motion without nuchal rigidity, or vertebral point tenderness. No Meningismus. Cardiovascular: Regular rate and rhythm with a normal S1 and S2. No gallops, murmurs, or rubs. Normal PMI, no JVD. No pulse deficits. Respiratory: Lungs have equal breath sounds bilaterally, clear to auscultation and percussion. No rales, rhonchi or wheezes noted. No increased work of breathing, no retractions or nasal flaring. Back: No spinal tenderness. No costovertebral tenderness. Full range of motion. Skin: Warm, dry with normal turgor. Normal color with no rashes, no lesions, and no evidence of cellulitis. Neuro: Awake and alert, GCS 15, oriented to person, place, time, and situation. Normal gait. 08:30 Musculoskeletal/extremity: ROM: limited active range of motion, in the Left fifth digit, Circulation is intact in all extremities. Sensation intact. Vital Signs: 08:28 BP 156 / 95; Pulse 79; Resp 16; Temp 98.2; Pulse Ox 100% on R/A; Pain 6/10; iw 09:28 BP 148 / 90; Pulse 70; Resp 17 S; Pulse Ox 100% on R/A; kc6 08:28 Pain Scale: Adult iw MDM: 08:15 Patient medically screened. jh7 09:35 Differential diagnosis: bronchitis, pneumonia Acute MN, stable angina, unstable angina, jh7 costochondritis. Data reviewed: vital signs, nurses notes, lab test result(s), EKG, radiologic studies, plain films. I considered the following discharge prescriptions or medication management in the emergency department Medications were administered in the Emergency Department. See MAR. Independent interpretation of the following test(s) in the Emergency Department EKG: See my EKG interpretation above. Care significantly affected by the following chronic conditions: Hypertension. Counseling: I had a detailed discussion with the patient and/or guardian regarding the historical points, exam findings, and any diagnostic results supporting the discharge/admit diagnosis, to return to the emergency department if symptoms worsen or persist or if there are any questions or concerns that arise at home. Response to treatment: the patient's symptoms have markedly improved after treatment. ED course: Patient reports that the chest pain has been intermittent for a long time and that it worsens/is reproducible with cough or deep breath. Reports that she has smoked for many years and smoking cessation was discussed.. 02/01 08:22 Order name: Basic Metabolic Panel; Complete Time: 09:33 [facility] 02/01 08:22 Order name: CBC with Diff; Complete Time: 08:58 [facility] 02/01 08:22 Order name: LFT's; Complete Time: 09:33 [facility] 02/01 08:22 Order name: NT PRO-BNP; Complete Time: 09:33 [facility] 02/01 08:22 Order name: PT-INR; Complete Time: 08:58 [facility] 02/01 08:22 Order name: Troponin HS; Complete Time: 09:33 [facility] 02/01 08:22 Order name: XRAY Chest (1 view); Complete Time: 09:10 [facility] 02/01 08:22 Order name: XRAY Hand LEFT 3 View; Complete Time: 09:10 [facility] 02/01 08:22 Order name: EKG; Complete Time: 08:22 [facility] 02/01 08:22 Order name: Cardiac monitoring; Complete Time: 08:32 [facility] 02/01 08:22 Order name: EKG - Nurse/Tech; Complete Time: 08:28 [facility] 02/01 08:22 Order name: IV Saline Lock; Complete Time: 08:32 [facility] 02/01 08:22 Order name: Labs collected and sent; Complete Time: 08:32 [facility] 02/01 08:22 Order name: O2 Per Protocol; Complete Time: 08:28 [facility] 02/01 08:22 Order name: O2 Sat Monitoring; Complete Time: 08:28 [facility] 02/01 08:44 Order name: Labs - recollect needed: recollect green top; Complete Time: 08:54 bd EC:25 Rate is 82 beats/min. Rhythm is regular. QRS [place] is Normal. PA interval is normal at [facility] 164 msec. QRS interval is normal at 74 msec. QT interval is normal at 372 msec. No Q waves. T waves are Inverted in leads II, III, aVF, V4, V5, V6. Clinical impression: Normal Sinus Rhythm. Administered Medications: 08:32 Drug: Aspirin PO Chewable Tablet 324 mg PO once; 81 mg tablets x 4 Route: PO; kc6 08:55 Follow up: Response: No adverse reaction 6 Disposition: 10:30 Co-signature as Attending Physician, Alberto Wallace MD I reviewed the patient's care rn provided by the Advanced Practice Provider and agree with the diagnosis and treatment plan. Disposition Summary: 02/01/23 09:39 Discharge Ordered Notes: Location: Home [facility] Problem: new [facility] Symptoms: have improved [facility] Condition: Stable [facility] Diagnosis - Pleurisy [facility] Followup: [facility] - With: Private Physician - When: 2 - 3 days - Reason: Recheck today's complaints Discharge Instructions: - Discharge Summary Sheet [facility] - Pleurisy [facility] Forms: - Medication Reconciliation Form [facility] - Thank You Letter [facility] - Patient Portal Instructions [facility] - Leadership Thank You Letter [facility] - Work release form kc6 Prescriptions: - albuterol sulfate 90 mcg/actuation Inhalation HFA Aerosol Inhaler - inhale 1 inhalation INHALATION route every 4-6 hours As needed; 1 Each; [facility] Refills: 0, Product Selection Permitted - Naprosyn 500 mg Oral Tablet - take 1 tablet ORAL route 2 times per day take with food; 30 tablet; Refills: 0, [facility] Product Selection Permitted - Tessalon Perles 100 mg Oral Capsule - take 1 capsule ORAL route every 8 hours As needed; 15 capsule; Refills: 0, [facility] Product Selection Permitted Signatures: Dispatcher [employer] Marline Baugh Irene, RN RN iw Nieto, Roman, MD MD rn Hadash, Jennifer, FNP [place] [id number] Evy Ramirez RN RN 6 Corrections: (The following items were deleted from the chart) 08:42 08:30 42-year-old female presents to the ER complaining of intermittent chest pain jh7 since yesterday at 2 PM. Reports that this is occurred multiple times and that she normally just sits at home until it resolves. She reports that this episode has continued longer than the past once. Reports that at lunch yesterday she believes she drank too fast and it felt like an air bubble in her chest. She states that she is a smoker and has a history of hypertension, however, she is not on any medication as of 1 month ago. Also states that she jammed her left pinky yesterday and would like to get an x-ray.. jh7
--- NOTE | 2023-02-01 09:39 | ER ---
Nurse's Notes [facility] Name: Jaky Mcconnell Age: 42 yrs Sex: Female : 1980 Arrival Date: 02/01/2023 Time: 08:10 Bed 2 Private MD: Diagnosis: Pleurisy Presentation: 02/01 08:28 Chief complaint: Patient states: intermittent midsternal chest pain since yesterday. iw Coronavirus screen: At this time, the client does not indicate any symptoms associated with coronavirus-19. Ebola Screen: Patient negative for fever greater than or equal to 101.5 degrees Fahrenheit, and additional compatible Ebola Virus Disease symptoms Patient denies exposure to infectious person. Patient denies travel to an Ebola-affected area in the 21 days before illness onset. No symptoms or risks identified at this time. Initial Sepsis Screen: Does the patient meet any 2 criteria? No. Patient's initial sepsis screen is negative. Does the patient have a suspected source of infection? No. Patient's initial sepsis screen is negative. Risk Assessment: Do you want to hurt yourself or someone else? Patient reports no desire to harm self or others. Onset of symptoms was January 31, 2023. 08:28 Method Of Arrival: Ambulatory iw 08:28 Acuity: JONNA 3 iw Historical: - Allergies: 08:29 PENICILLINS; iw - PMHx: 08:29 Hypertension; iw - Immunization history:: Adult Immunizations unknown. - Social history:: Smoking status: unknown. Screenin:38 [facility] ED Fall Risk Assessment (Adult) History of falling in the last 3 months, kc6 including since admission No falls in past 3 months (0 pts) Confusion or Disorientation No (0 pts) Intoxicated or Sedated No (0 pts) Impaired Gait No (0 pts) Mobility Assist Device Used No (0 pt) Altered Elimination No (0 pt) Score/Fall Risk Level 0 - 2 = Low Risk. Abuse screen: Denies threats or abuse. Denies injuries from another. Nutritional screening: No deficits noted. Tuberculosis screening: No symptoms or risk factors identified. Assessment: 08:39 General: Appears in no apparent distress. comfortable, Behavior is calm, cooperative, kc6 appropriate for age. Pain: Complains of pain in chest Pain does not radiate. Neuro: Level of Consciousness is awake, alert, obeys commands, Oriented to person, place, time, situation, Appropriate for age. Cardiovascular: Reports chest pain, Heart tones S1 S2 present Capillary refill < 3 seconds Rhythm is sinus rhythm. Respiratory: Airway is patent Trachea midline Respiratory effort is even, unlabored, Respiratory pattern is regular, symmetrical, Denies shortness of breath. GI: No signs and/or symptoms were reported involving the gastrointestinal system. : No signs and/or symptoms were reported regarding the genitourinary system. EENT: No signs and/or symptoms were reported regarding the EENT system. Derm: No signs and/or symptoms reported regarding the dermatologic system. Skin is intact, is healthy with good turgor, Skin is pink, warm \T\ dry. Musculoskeletal: No signs and/or symptoms reported regarding the musculoskeletal system. Circulation, motion, and sensation intact. Capillary refill < 3 seconds, Range of motion: intact in all extremities. 09:28 Reassessment: Patient appears in no apparent distress at this time. No changes from kc6 previously documented assessment. Patient and/or family updated on plan of care and expected duration. Pain level reassessed. Patient is alert, oriented x 3, equal unlabored respirations, skin warm/dry/pink. Vital Signs: 08:28 BP 156 / 95; Pulse 79; Resp 16; Temp 98.2; Pulse Ox 100% on R/A; Pain 6/10; iw 09:28 BP 148 / 90; Pulse 70; Resp 17 S; Pulse Ox 100% on R/A; kc6 08:28 Pain Scale: Adult iw ED Course: 08:14 Patient arrived in ED. im 08:15 Jumana Quesada FNP [facility]. jh7 08:15 Alberto Wallace MD is Attending Physician. jh7 08:16 Evy Ramirez, RYLAN is Primary Nurse. kc6 08:19 Arm band placed on Patient placed in an exam room, on a stretcher. ll1 08:29 Triage completed. iw 08:39 Patient has correct armband on for positive identification. Bed in low position. Call kc6 light in reach. Side rails up X 1. Client placed on continuous cardiac and pulse oximetry monitoring. NIBP monitoring applied. monitor and storage bin tender on. 08:39 Inserted saline lock: 20 gauge in left antecubital area, using aseptic technique. Blood kc6 collected. Patient maintains SpO2 saturation greater than 95% on room air. 09:01 XRAY Chest (1 view) In Process Unspecified. EDMS 09:01 XRAY Hand LEFT 3 View In Process Unspecified. EDMS 09:53 No provider procedures requiring assistance completed. IV discontinued, intact, kc6 bleeding controlled, No redness/swelling at site. Pressure dressing applied. Administered Medications: 08:32 Drug: Aspirin PO Chewable Tablet 324 mg PO once; 81 mg tablets x 4 Route: PO; kc6 08:55 Follow up: Response: No adverse reaction kc6 Medication: 09:53 VIS not applicable for this client. kc6 Outcome: 09:39 Discharge ordered by . jh7 09:53 Discharged to home ambulatory, kc6 09:53 Condition: good 09:53 Discharge instructions given to patient, Instructed on discharge instructions, follow up and referral plans. medication usage, Demonstrated understanding of instructions, follow-up care, medications, Prescriptions given X 3, 09:54 Patient left the ED. kc6 Signatures: Dispatcher [employer] Judy Smart, RN Amira Covarrubias RN RN ll1 Jumana Quesada, BURNER HAND BURNER HAND Evy Knight RN RN kc6 Galina Asher
[2023-02-01 10:12] VITALS: TEMP 98.2; O2SAT 100
[2023-02-01 10:18] VITALS: BP 148/90
--- NOTE | 2023-02-06 14:33 | EKG ---
Test Date: 2023-02-01 Test Time: 08:25:07 Office Clerk Routine: JOSE MEASUREMENT RESULTS: Intervals: Rate: 82 ND: 164 QRSD: 74 QT: 372 QTc: 434 Kelly: P: 49 ND: 164 QRS: 64 T: -46 INTERPRETIVE STATEMENTS: Normal sinus rhythm Cannot rule out Anterior infarct, age undetermined T wave abnormality, consider inferolateral ischemia Abnormal ECG Compared to ECG 02/25/2022 21:46:21 Myocardial infarct finding now present T-wave abnormality still present Possible ischemia still present Electronically Signed On 02-06-23 14:18:07 SALES ORDER SPECIALIST by Dale Locke
== END 2023-02-01 09:54 | disposition home or self-care (01) ==
LOC: ER 08:10
DX: R09.1 Pleurisy (principal); I10 Essential (primary) hypertension; F17.210 Nicotine dependence, cigarettes, uncomplicated; Z88.0 Allergy status to penicillin
CPT/HCPCS: 36415; 71045; 80048; 80076; 83880; 84484; 85025; 85610; 93005; 99285

== ENCOUNTER 2023-12-13 13:06 | Emergency (ER) | payer SELFPAY ==
[2023-12-13] MEDS ORDERED: ASPIRIN 81 MG CHEWABLE TABLET ONE (13:45)
[2023-12-13 14:01] LABS: Absolute Basophils 0.1 K/uL (0-0.5); Absolute Eosinophils 0.1 K/uL (0-0.5); Absolute Lymphocytes (CBC) 1.6 K/uL (0.7-4.9); Absolute Monocytes 0.7 K/uL (0.1-1.3); Absolute Neutrophil 6.4 K/uL (1.8-8.0); Basophils % 0.7 % (0-1.3); Eosinophils % 1.1 % (0-4.4); Hematocrit 42.2 % (36.0-45.0); Hemoglobin 14.5 g/dL (12.0-15.0); MCH 33.4 pg (27.0-35.0); MCHC 34.4 g/dL (32.0-36.0); MCV 97.1 fL (80-100); MPV 8.7 fL (7.6-11.3); Monocytes % 7.7 % (3.3-12.3); Neutrophils % 72.5 % (41.7-73.7); Platelets 241 thou/uL (152-406); RBC Red Blood Cell Count 4.34 M/uL (3.86-4.86); Red Cell Distribution Width 14.3 % (12.1-15.2)
[2023-12-13 14:17] LABS: D-Dimer 0.44 FEUug/mL (0-0.500); PT Prothrombin Time 12.6 SECONDS (9.4-12.5); Protime INR 1.13
[2023-12-13 14:18] LABS: Anion Gap 9.4 mEq/L (5.0-15.0); Potassium 3.4 mEq/L (3.5-5.1); Troponin High Sensitivity 4.9 pg/mL (<58.9)
--- NOTE | 2023-12-13 15:21 | RAD REPORT ---
EXAMINATION: ONE VIEW CHEST XR CLINICAL INDICATION: Female, 43 years old. [facility] MAIN CHEST PAIN Bed Name: 2 TECHNIQUE: Frontal chest projection is submitted. Examination is limited by patient positioning and t echnique. COMPARISON: No prior exam. FINDINGS: The lungs are well inflated and clear. No effusion or pneumothorax. The heart is normal in size. IMPRESSION: No acute intrathoracic abnormalities.
--- NOTE | 2023-12-13 16:17 | ER ---
Nurse's Notes [facility] Name: Jaky Mcconnell Age: 43 yrs Sex: Female : 1980 Arrival Date: 12/13/2023 Time: 13:06 Bed 2 Private MD: Diagnosis: Chest pain, unspecified Presentation: 12/12 13:17 Chief complaint: Patient states: Was at work and started having right sided chest pain cm10 that she describes as sharp. pt reports that she also started having some shortness of breath. Pt states that the pain does not radiate. Coronavirus screen: Client denies travel out of the [place] in the last 14 days. At this time, the client does not indicate any symptoms associated with coronavirus-19. Ebola Screen: Patient denies travel to an Ebola-affected area in the 21 days before illness onset. No symptoms or risks identified at this time. Initial Sepsis Screen: Does the patient meet any 2 criteria? No. Patient's initial sepsis screen is negative. Does the patient have a suspected source of infection? No. Patient's initial sepsis screen is negative. Risk Assessment: Do you want to hurt yourself or someone else? Patient reports no desire to harm self or others. Onset of symptoms was December 13, 2023. 13:17 Method Of Arrival: Ambulatory cm10 13:17 Acuity: JONNA 2 cm10 Triage Assessment: 13:19 General: Appears in no apparent distress. comfortable, Behavior is calm, cooperative. cm10 Pain: Complains of pain in chest Pain does not radiate. Pain currently is 4 out of 10 on a pain scale. Quality of pain is described as sharp, Pain began suddenly. Neuro: No deficits noted. Level of Consciousness is awake, alert, obeys commands, Oriented to person, place, time, situation, Appropriate for age. Respiratory: No deficits noted. Airway is patent Respiratory effort is even, unlabored, Respiratory pattern is regular, symmetrical. Historical: - Allergies: 13:18 No Known Allergies; cm10 - PMHx: 13:18 Hypertension; cm10 - Immunization history:: Adult Immunizations up to date. - Infectious Disease History:: Denies. - Social history:: Smoking status: Patient reports the use of cigarette tobacco products, smokes one-half pack cigarettes per day. Screenin:36 [facility] ED Fall Risk Assessment (Adult) History of falling in the last 3 months, ph including since admission No falls in past 3 months (0 pts) Confusion or Disorientation No (0 pts) Intoxicated or Sedated No (0 pts) Impaired Gait No (0 pts) Mobility Assist Device Used No (0 pt) Altered Elimination No (0 pt) Score/Fall Risk Level 0 - 2 = Low Risk Oriented to surroundings, Maintained a safe environment, Hourly rounding (assess needs \T\ fall precautionary measures) done. Abuse screen: Denies threats or abuse. Denies injuries from another. Nutritional screening: No deficits noted. Tuberculosis screening: No symptoms or risk factors identified. Assessment: 13:50 General: Appears in no apparent distress. comfortable, obese, Behavior is cooperative, bp appropriate for age, anxious. 15:13 Reassessment: Patient appears in no apparent distress at this time. Patient and/or ph family updated on plan of care and expected duration. Pain level reassessed. Patient is alert, oriented x 3, equal unlabored respirations, skin warm/dry/pink. 16:36 Pain: Denies pain. Cardiovascular: No deficits noted. bp Vital Signs: 13:17 BP 142 / 89; Pulse 72; Resp 15; Temp 97.3(IR); Pulse Ox 97% on R/A; Weight 108.4 kg cm10 (M); Height 5 ft. 5 in. (R); Pain 4/10; 13:50 BP 138 / 78; Pulse 71; Resp 16; Pulse Ox 99% ; bp 15:12 BP 131 / 87; Pulse 69; Resp 18; Pulse Ox 96% on R/A; ph 16:34 BP 151 / 99; Pulse 63; Resp 16; Pulse Ox 99% ; bp 13:17 Body Mass Index 39.77 (108.40 kg, 165.1 cm) cm10 13:17 Pain Scale: Adult cm10 ED Course: 13:07 Patient arrived in ED. im 13:13 Malka Mariee MD is Attending Physician. gb1 13:18 Triage completed. cm10 13:20 Arm band placed on Patient placed in an exam room, on a stretcher. EKG completed in cm10 triage. Results shown to MD. 13:20 EKG done. cm10 13:24 Koby Jones, RN is Primary Nurse. bp 13:36 Patient has correct armband on for positive identification. Bed in low position. Call ph light in reach. Side rails up X 1. Client placed on continuous cardiac and pulse oximetry monitoring. NIBP monitoring applied. telemetry monitor on. Door closed. Noise minimized. 13:36 Patient maintains SpO2 saturation greater than 95% on room air. ph 13:50 Initial lab(s) drawn, by me, sent to lab. Inserted saline lock: 20 gauge in right bp forearm, using aseptic technique. Blood collected. Flushed with 10 mL NS. 14:49 XRAY Chest (1 view) In Process Unspecified. EDMS 16:16 Dale Locke MD is Referral Physician. gb1 16:34 Provided Education on: N/A. bp 16:34 No provider procedures requiring assistance completed. IV discontinued, intact, bp bleeding controlled, No redness/swelling at site. Pressure dressing applied. Administered Medications: 13:50 Drug: Aspirin PO Chewable Tablet 324 mg PO once; 81 mg tablets x 4 Route: PO; bp 16:38 Follow up: Response: No adverse reaction bp Medication: 13:36 VIS not applicable for this client. ph Outcome: 16:17 Discharge ordered by . gb1 16:34 Discharged to home ambulatory, bp 16:34 Condition: stable 16:34 Discharge instructions given to patient, Instructed on discharge instructions, follow up and referral plans. Demonstrated understanding of instructions, follow-up care, 16:37 Patient left the ED. bp Signatures: Dispatcher [employer] EDID Lana Zarate RN RN ph Koby Jones RN RN bp Galina Asher Clarissa, RN RN cm10 Malka Mariee MD MD gb1 Corrections: (The following items were deleted from the chart) 13:19 13:18 Allergies: PENICILLINS; cm10 cm10
--- NOTE | 2023-12-13 16:17 | EDPHYS ---
Physician Documentation [facility] Name: Jaky Mcconnell Age: 43 yrs Sex: Female : 1980 Arrival Date: 12/13/2023 Time: 13:06 Bed 2 Private MD: ED Physician Malka Mariee HPI: 12/12 16:18 This 43 yrs old Black Female presents to ER via Ambulatory with complaints of Chest gb1 Pain, Shortness Of Breath. 16:18 43-year-old -[place] female who was at work and all of a sudden was walking gb1 from lunch and got a sharp chest pain lasting seconds. She was somewhat short of breath with the pain onset. She is a smoker of weed and tobacco and does drink alcohol socially. She has a history of hypertension but is somewhat noncompliant on her medications. She denies any nausea vomiting, arm, shoulder or neck pain. She states has been having these episodes of chest pain off and on for the last few months to even up to a year.. Historical: - Allergies: 13:18 No Known Allergies; cm10 - PMHx: 13:18 Hypertension; cm10 - Immunization history:: Adult Immunizations up to date. - Infectious Disease History:: Denies. - Social history:: Smoking status: Patient reports the use of cigarette tobacco products, smokes one-half pack cigarettes per day. Exam: 16:18 Constitutional: This is a well developed, well nourished patient who is awake, alert, gb1 and in no acute distress. Head/Face: Normocephalic, atraumatic. Eyes: Pupils equal round and reactive to light, extra-ocular motions intact. Lids and lashes normal. Conjunctiva and sclera are non-icteric and not injected. Cornea within normal limits. Periorbital areas with no swelling, redness, or edema. ENT: Nares patent. No nasal discharge, no septal abnormalities noted. Tympanic membranes are normal and external auditory canals are clear. Oropharynx with no redness, swelling, or masses, exudates, or evidence of obstruction, uvula midline. Mucous membranes moist. Neck: Trachea midline, no thyromegaly or masses palpated, and no cervical lymphadenopathy. Supple, full range of motion without nuchal rigidity, or vertebral point tenderness. No Meningismus. Chest/axilla: Normal chest wall appearance and motion. Nontender with no deformity. No lesions are appreciated. Cardiovascular: Regular rate and rhythm with a normal S1 and S2. No gallops, murmurs, or rubs. Normal PMI, no JVD. No pulse deficits. Respiratory: Lungs have equal breath sounds bilaterally, clear to auscultation and percussion. No rales, rhonchi or wheezes noted. No increased work of breathing, no retractions or nasal flaring. Abdomen/GI: Soft, non-tender, with normal bowel sounds. No distension or tympany. No guarding or rebound. No evidence of tenderness throughout. Back: No spinal tenderness. No costovertebral tenderness. Full range of motion. Skin: Warm, dry with normal turgor. Normal color with no rashes, no lesions, and no evidence of cellulitis. MS/ Extremity: Pulses equal, no cyanosis. Neurovascular intact. Full, normal range of motion. Neuro: Awake and alert, GCS 15, oriented to person, place, time, and situation. Cranial nerves II-XII grossly intact. Motor strength 5/5 in all extremities. Sensory grossly intact. Cerebellar exam normal. Normal gait. Vital Signs: 13:17 BP 142 / 89; Pulse 72; Resp 15; Temp 97.3(IR); Pulse Ox 97% on R/A; Weight 108.4 kg cm10 (M); Height 5 ft. 5 in. (R); Pain 4/10; 13:50 BP 138 / 78; Pulse 71; Resp 16; Pulse Ox 99% ; bp 15:12 BP 131 / 87; Pulse 69; Resp 18; Pulse Ox 96% on R/A; ph 16:34 BP 151 / 99; Pulse 63; Resp 16; Pulse Ox 99% ; bp 13:17 Body Mass Index 39.77 (108.40 kg, 165.1 cm) cm10 13:17 Pain Scale: Adult cm10 MDM: 13:31 Patient medically screened. gb1 16:18 Differential diagnosis: abnormal EKG, acute pericarditis, anxiety, coronary artery gb1 disease chest wall pain, esophagitis, gastritis, myocarditis, peptic ulcer disease, pericarditis, pleurisy, pneumonia, pulmonary embolus, stable angina, unstable angina. HEART Score: History: Slightly Suspicious (0), ECG: Significant ST-deviation (2), Age: < or = 45 years (0), Risk Factors: 1 or 2 risk factors (1), [Hypertension] [Active Smoker] [Obesity] Troponin: < or = 1 x Normal Limit (0), Total Score = 3. Data reviewed: vital signs, nurses notes, lab test result(s), cardiac enzymes, CBC, electrolytes, EKG, radiologic studies, plain films. ED course: 43-year-old -[place] female with history of sort of chest pain on breathing. EKG is concerning for ST depression in leads II, III and aVF no reciprocal changes she also has ST depression anteriorly in leads V4 through V6. Patient does need an outpatient stress test and evaluation by Dr. Locke will referred her to for cardiology evaluation. D-dimer is negative patient is low risk without PE and I doubt a focal pneumonia as she does not appear infectious or any signs of early sepsis. Patient is awake and alert and I will refer her as an outpatient she is to be givenreturn precautions and Spectamine with our discharge home today.. 12/12 13:31 Order name: Basic Metabolic Panel; Complete Time: 14:37 gb1 12/12 13:31 Order name: CBC with Diff; Complete Time: 14:05 gb1 12/12 13:31 Order name: D-Dimer; Complete Time: 14:37 gb1 12/12 13:31 Order name: NT PRO-BNP; Complete Time: 14:37 gb1 12/12 13:31 Order name: PT-INR; Complete Time: 14:37 gb1 12/12 13:31 Order name: Troponin HS; Complete Time: 14:37 gb1 12/12 13:31 Order name: XRAY Chest (1 view); Complete Time: 15:23 gb12/12 13:31 Order name: Cardiac monitoring; Complete Time: 13:50 gb1 12/12 13:31 Order name: EKG - Nurse/Tech; Complete Time: 13:35 gb1 12/12 13:31 Order name: IV Saline Lock; Complete Time: 13:50 gb1 12/12 13:31 Order name: Labs collected and sent; Complete Time: 13:50 gb1 12/12 13:31 Order name: O2 Per Protocol; Complete Time: 13:35 gb1 12/12 13:31 Order name: O2 Sat Monitoring; Complete Time: 13:35 gb1 Administered Medications: 13:50 Drug: Aspirin PO Chewable Tablet 324 mg PO once; 81 mg tablets x 4 Route: PO; bp 16:38 Follow up: Response: No adverse reaction bp Disposition Summary: 12/13/23 16:17 Discharge Ordered Notes: Location: Home gb1 Problem: new gb1 Symptoms: have improved gb1 Condition: Stable gb1 Diagnosis - Chest pain, unspecified gb1 Followup: gb1 - With: Dale Locke MD - When: 1 week - Reason: Further diagnostic work-up Discharge Instructions: - Discharge Summary Sheet gb1 - Nonspecific Chest Pain, Adult gb1 Forms: - Work release form ph - Medication Reconciliation Form gb1 - Antibiotic Education gb1 - Prescription Opioid Use gb1 - Patient Portal Instructions gb1 - Leadership Thank You Letter gb1 Signatures: Dispatcher [employer] EDKoby Bowers, RN RN bp Christine Pizarro RN RN cm10 Malka Mariee MD MD gb1 Corrections: (The following items were deleted from the chart) 13:19 13:18 Allergies: PENICILLINS; cm10 cm10 13:32 13:32 BASIC METABOLIC PANEL+C.LAB.BRZ ordered. EDMS EDMS 13:32 13:32 CBC+H.LAB.BRZ ordered. EDMS EDMS 13:32 13:32 D-DIMER+COAG.LAB.BRZ ordered. EDMS EDMS 13:32 13:32 PROBNP+C.LAB.BRZ ordered. EDMS EDMS 13:32 13:32 PROTIME (+INR)+COAG.LAB.BRZ ordered. EDMS EDMS 13:32 13:32 Troponin High Sensitivity+C.LAB.BRZ ordered. EDMS EDMS 13:32 13:32 Chest Single View+RAD.RAD.BRZ ordered. EDMS EDMS
[2023-12-13 16:41] VITALS: TEMP 97.3
[2023-12-13 16:47] VITALS: BP 151/99; O2SAT 99
--- NOTE | 2023-12-14 16:59 | EKG ---
Test Date: 2023-12-13 Test Time: 13:13:46 Sandwich Machine Operator: CECILIA MEASUREMENT RESULTS: Intervals: Rate: 70 MS: 158 QRSD: 82 QT: 394 QTc: 425 Drew: P: 51 MS: 158 QRS: 87 T: -55 INTERPRETIVE STATEMENTS: Normal sinus rhythm T wave abnormality, consider inferolateral ischemia Abnormal ECG Compared to ECG 02/01/2023 08:25:07 Myocardial infarct finding no longer present T-wave abnormality still present Possible ischemia still present Electronically Signed On 12-14-23 16:55:14 CDT by Dale Locke
== END 2023-12-13 16:37 | disposition home or self-care (01) ==
LOC: ER 13:06
DX: R07.9 Chest pain, unspecified (principal); I10 Essential (primary) hypertension; F17.210 Nicotine dependence, cigarettes, uncomplicated
CPT/HCPCS: 36415; 71045; 80048; 83880; 84484; 85025; 85379; 85610; 93005; 99285

== ENCOUNTER 2024-01-23 13:39 | Emergency (ER) | payer MEDICARE ==
[2024-01-23] MEDS ORDERED: predniSONE 20 MG TAB ONE (14:03)
[2024-01-23] MEDS ORDERED: ALBUTEROL 2.5 MG/3 ML NEB SOL ONE (14:03)
--- NOTE | 2024-01-23 15:05 | RAD REPORT ---
EXAMINATION: ONE VIEW CHEST XR CLINICAL INDICATION: COUGH TECHNIQUE: Frontal chest projection is submitted. Examination is limited by patient positioning and t echnique. COMPARISON: No prior exam. FINDINGS: Nonspecific peribronchial thickening without focal consolidation could represent a viral process or r eactive airway disease. The heart is normal in size. No displaced fractures identified. IMPRESSION: Nonspecific peribronchial thickening without focal consolidation could represent a viral process or r eactive airway disease.
[2024-01-23] MEDS ORDERED: BENZONATATE 100 MG CAP PO ONE (15:16)
--- NOTE | 2024-01-23 15:20 | ER ---
Nurse's Notes [facility] Name: Jaky Mcconnell Age: 43 yrs Sex: Female : 1980 Arrival Date: 01/23/2024 Time: 13:39 Bed 18 Private MD: Diagnosis: Cough variant asthma;Acute bronchitis, unspecified Presentation: 01/22 14:49 Chief complaint: Patient states: Pt c/o cough since yesterday. Pt denies any other tl4 associated symptoms. Coronavirus screen: congestion, cough unrelated to allergies. Ebola Screen: No symptoms or risks identified at this time. Initial Sepsis Screen: Does the patient meet any 2 criteria? No. Patient's initial sepsis screen is negative. Does the patient have a suspected source of infection? No. Patient's initial sepsis screen is negative. Risk Assessment: Do you want to hurt yourself or someone else? Patient reports no desire to harm self or others. Onset of symptoms was January 22, 2024. 14:49 Method Of Arrival: Ambulatory tl4 14:49 Acuity: JONNA 3 tl4 Triage Assessment: 14:50 General: Appears in no apparent distress. Respiratory: Reports cough that is Airway is tl4 patent Respiratory effort is even, unlabored, Respiratory pattern is regular, symmetrical. 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 - Infectious Disease History:: Denies. - Social history:: Smoking status: Patient reports the use of cigarette tobacco products, smokes one-half pack cigarettes per day. Screenin:48 [facility] ED Fall Risk Assessment (Adult) History of falling in the last 3 months, tl4 including since admission No falls in past 3 months (0 pts) Confusion or Disorientation No (0 pts) Intoxicated or Sedated No (0 pts) Impaired Gait No (0 pts) Mobility Assist Device Used No (0 pt) Altered Elimination No (0 pt) Score/Fall Risk Level 0 - 2 = Low Risk Oriented to surroundings, Maintained a safe environment, Educated pt \T\ family on fall prevention, incl call for assistance when getting out of bed, Assessed \T\ reinforced patient's understanding of fall precautions. Abuse screen: Denies threats or abuse. Denies injuries from another. Nutritional screening: No deficits noted. Tuberculosis screening: No symptoms or risk factors identified. Assessment: 14:44 General: Appears in no apparent distress. Behavior is calm, cooperative. Pain: Denies tl4 pain. Neuro: Level of Consciousness is awake, alert, obeys commands, Oriented to person, place, time, situation, Moves all extremities. Full function Speech is normal, Facial symmetry appears normal. Cardiovascular: Reports congestion Capillary refill < 3 seconds Patient's skin is warm and dry. Respiratory: Airway is patent Respiratory effort is even, unlabored, Respiratory pattern is regular, symmetrical, Breath sounds are clear in right upper lobe, left upper lobe, left posterior upper lobe, right posterior upper lobe and right posterior middle lobe Breath sounds are coarse in left posterior lower lobe and right posterior lower lobe. Respiratory: Reports cough that is non-productive, since yesterday. GI: No signs and/or symptoms were reported involving the gastrointestinal system. : No signs and/or symptoms were reported regarding the genitourinary system. EENT: No signs and/or symptoms were reported regarding the EENT system. Derm: No signs and/or symptoms reported regarding the dermatologic system. Musculoskeletal: No signs and/or symptoms reported regarding the musculoskeletal system. Vital Signs: 13:52 BP 146 / 79; Pulse 100; Resp 20; Temp 100; Pulse Ox 94% on R/A; Weight 104.33 kg; em1 Height 5 ft. 5 in. ; Pain 0/10; 14:47 BP 146 / 69; Pulse 100; Resp 20; Pulse Ox 96% on R/A; tl4 15:35 BP 142 / 70; Pulse 88; Resp 18; Temp 98.3(O); Pulse Ox 96% on R/A; tl4 13:52 Body Mass Index 38.27 (104.33 kg, 165.1 cm) em1 13:52 Pain Scale: Adult em1 ED Course: 13:40 Patient arrived in ED. mr 13:49 Dat Berkowitz MD is Attending Physician. bo1 14:05 Ander Morrissey RN is Primary Nurse. tl4 14:48 Patient has correct armband on for positive identification. Bed in low position. Call tl4 light in reach. Side rails up X 1. Adult w/ patient. Provided Education on: ed process, call hylton. Client placed on continuous cardiac and pulse oximetry monitoring. NIBP monitoring applied. Door closed. Noise minimized. Lights dimmed. Moved to private room. Warm blanket given. 14:48 No provider procedures requiring assistance completed. tl4 14:50 Triage completed. tl4 14:50 Arm band placed on left wrist. tl4 14:56 CXR XRAY In Process Unspecified. EDMS 15:44 Patient did not have IV access during this emergency room visit. tl4 Administered Medications: 14:21 Drug: Albuterol Inhalation 2.5 mg Inhalation once {Note: via nebulizer set up with mask tl4 and oxygen at 8 lpm.} Route: Inhalation; 14:44 Follow up: Response: No adverse reaction tl4 14:21 Drug: predniSONE PO 40 mg PO once Route: PO; tl4 14:44 Follow up: Response: No adverse reaction tl4 15:19 Drug: Tessalon Perle PO 200 mg PO once Route: PO; tl4 15:43 Follow up: Response: No adverse reaction tl4 Medication: 14:48 VIS not applicable for this client. tl4 Outcome: 15:18 Discharge ordered by . bo1 15:43 Discharged to home ambulatory, tl4 15:43 Condition: stable 15:43 Discharge instructions given to patient, Instructed on discharge instructions, follow up and referral plans. medication usage, Demonstrated understanding of instructions, follow-up care, medications, Prescriptions given X 4, 15:44 Patient left the ED. tl4 Signatures: Dispatcher [employer] EDIL Cynthia Orellana, Reg Reg mr PizarroEliseo em1 Ander Morrissey RN RN tl4 Dat Berkowitz MD MD bo1 Corrections: (The following items were deleted from the chart) 14:47 14:46 PSHx: nose (Hypertension); tl4 tl4
--- NOTE | 2024-01-23 15:20 | EDPHYS ---
Physician Documentation [facility] Name: Jaky Mcconnell Age: 43 yrs Sex: Female : 1980 Arrival Date: 01/23/2024 Time: 13:39 Bed 18 Private MD: ED Physician Dat Berkowitz HPI: 01/22 15:10 This 43 yrs old Black Female presents to ER via Ambulatory with complaints of Cough, bo1 Congestion, Weakness. 15:10 Onset: The symptoms/episode began/occurred gradually, 3 day(s) ago. Severity of bo1 symptoms: At their worst the symptoms were moderate, Pt's roommate gave her a breathing treatment (2.5mg albuterol neb tx) last night at 3am. Pt was able to sleep.. Modifying factors: The symptoms are alleviated by nebulizer treatment, the symptoms are aggravated by nothing, No new dog/cat. Associated signs and symptoms: Pertinent positives: this patient has no pertinent positive symptoms Pertinent negatives: chest pain, fever. Pt had hx of HTN, taken off meds (non-JUANITO inhibitor). She works in a [employer] - Next shift is tomorrow. No new chemicals or exposures. 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 - Infectious Disease History:: Denies. - Social history:: Smoking status: Patient reports the use of cigarette tobacco products, smokes one-half pack cigarettes per day. ROS: 15:13 Constitutional: Negative for fever, chills, and weight loss bo1 15:13 ENT: Negative for ear pain, nasal discharge, 15:13 Neck: Negative for pain with movement, pain at rest, swelling, swollen nodes, 15:13 Cardiovascular: Negative for chest pain, palpitations, 15:13 Respiratory: Positive for cough, "dry cough", 15:13 Abdomen/GI: Negative for abdominal pain, 15:13 MS/extremity: Negative for pain, swelling, 15:13 Skin: Negative for rash, Exam: 15:14 Constitutional: This is a well developed, well nourished patient who is awake, alert, bo1 and in no acute distress. 15:14 Constitutional: The patient appears alert, awake, comfortable, "coughing" intermittently 15:14 Neck: External neck: is normal, no acute changes, 15:14 Cardiovascular: Rate: normal, Rhythm: regular, Pulses: no pulse deficits are appreciated, Heart sounds: normal, 15:14 Respiratory: the patient does not display signs of respiratory distress, Respirations: normal, Breath sounds: are clear throughout, Minimal wheezing, 15:14 Musculoskeletal/extremity: Extremities: all appear grossly normal, with no appreciated pain with palpation, Calves: are non-tender, 15:14 Skin: no rash present. Vital Signs: 13:52 BP 146 / 79; Pulse 100; Resp 20; Temp 100; Pulse Ox 94% on R/A; Weight 104.33 kg; em1 Height 5 ft. 5 in. ; Pain 0/10; 14:47 BP 146 / 69; Pulse 100; Resp 20; Pulse Ox 96% on R/A; tl4 15:35 BP 142 / 70; Pulse 88; Resp 18; Temp 98.3(O); Pulse Ox 96% on R/A; tl4 13:52 Body Mass Index 38.27 (104.33 kg, 165.1 cm) em1 13:52 Pain Scale: Adult em1 MDM: 13:49 Medical Screening Exam initiated bo1 15:16 Differential Diagnosis: Bronchitis Upper Respiratory Infection Viral Syndrome Other bo1 Reactive airway dz, tobacco abuse. ED course: Pt is better with neb treatment in the ER. Xray suggests reactive airway dz. 15:26 Data reviewed: vital signs, radiologic studies, plain films. bo1 01/22 13:59 Order name: CXR XRAY; Complete Time: 15:07 bo1 Administered Medications: 14:21 Drug: Albuterol Inhalation 2.5 mg Inhalation once {Note: via nebulizer set up with mask tl4 and oxygen at 8 lpm.} Route: Inhalation; 14:44 Follow up: Response: No adverse reaction tl4 14:21 Drug: predniSONE PO 40 mg PO once Route: PO; tl4 14:44 Follow up: Response: No adverse reaction tl4 15:19 Drug: Tessalon Perle PO 200 mg PO once Route: PO; tl4 15:43 Follow up: Response: No adverse reaction tl4 Disposition Summary: 01/23/24 15:18 Discharge Ordered Notes: Location: Home bo1 Problem: new bo1 Symptoms: have improved bo1 Condition: Stable bo1 Diagnosis - Cough variant asthma bo1 - Acute bronchitis, unspecified bo1 Followup: bo1 - With: Private Physician - When: Upon discharge from the Emergency Department - Reason: Recheck today's complaints, Continuance of care Discharge Instructions: - Discharge Summary Sheet bo1 - Acute Bronchitis, Adult bo1 - Cough, Adult, [id number] bo1 - Smoking Tobacco Information, Adult bo1 Forms: - Work release form bo1 - Medication Reconciliation Form bo1 - Antibiotic Education bo1 - Prescription Opioid Use bo1 - Patient Portal Instructions bo1 - Leadership Thank You Letter bo1 Prescriptions: - azithromycin 250 mg Oral tablet - take 1 tablet ORAL route daily for 6 days; 6 tablet; Refills: 0, Product bo1 Selection Permitted - Tessalon Perles 100 mg Oral capsule - take 1 capsule ORAL route every 6 hours As needed; 30 capsule; Refills: 0, bo1 Product Selection Permitted - Albuterol Sulfate 2.5 mg /3 mL (0.083 %) Inhalation Solution for Nebulization - inhale 1 unit NEBULIZATION route every 6 hours As needed; 25 unit; Refills: 0, bo1 Product Selection Permitted - Prednisone 20 mg Oral Tablet - take 2 tablets ORAL route once daily for 5 days; 10 tablet; Refills: 0, Product bo1 Selection Permitted Signatures: Dispatcher [employer] Ander Panchal RN RN tl4 Dat Berkowitz MD MD bo1 Corrections: (The following items were deleted from the chart) 14:47 14:46 PSHx: nose (Hypertension); tl4 tl4
[2024-01-23 21:10] VITALS: O2SAT 96
[2024-01-23 21:11] VITALS: BP 142/70; TEMP 98.3
== END 2024-01-23 15:44 | disposition home or self-care (01) ==
LOC: ER 13:39
DX: J20.9 Acute bronchitis, unspecified (principal); J45.909 Unspecified asthma, uncomplicated; R05.8 Other specified cough; F17.210 Nicotine dependence, cigarettes, uncomplicated
CPT/HCPCS: 71045; 99284; J7512; J7613

== ENCOUNTER 2024-06-25 12:03 | Emergency (ER) | payer MEDICARE, OTHER, SELFPAY ==
--- OUTSIDE RECORDS SUMMARY | 2024-06-25 12:09 | XMS REPORT | Continuity of Care Document ---
Author Name Unknown Address [address] [facility] [address] [place] [address] [facility] Address [address] [facility] [address] [place] [address] Care Team Providers Care Ssn/Ssbn Assistant Navigator Name Role Phone ALLEY MITCHELL Primary Care Physician Unavailab ALLEY Garcia Attending Clinician Unavailable Anna CERTIFIED NUTRITIONISTCori KIRKLAND Attending Clinician Unava ilable CANYD ANNE Attending Clinician Unavailable Candy Rose Attending Clinician [phone] Doctor Unassigned, [place] Attending Clinician U MARY Vieyra Attending Clinician Unavailable MARY WYMAN Attending Clinician Unavailable BENY CARR Attending Clinician Unavailable Bijan Sanchezya S Attending Clinician [phone] Stephen CABLE INSTALLERAlley Gordon Attending Clinician [phone] Lab, Ang - Db Attending Clinician Unavailable Mary Wyman PA-C Attending Clinician [phone] HYACINTH CHIN Attending Clinician Unavailable Hyacinth Chin MD Attending Clinician [phone], [facility] Attending Clinician Unavailable AUGUSTINE JARAMILLO Attending Clinician Unavailable Augustine Thomas Attending Clinician [phone] Bismark Chilel MD Attending Clinician [phone] BISMARK CHILEL Attending Clinician Unavailable [facility] Attending Clinician Unavail able Vikas Fleming MD Attending Clinician [phone] VIKAS FLEMING Attending Clinician Unavailable Xenia Perez Attending Clinician [phone] RUBEN TIAN Attending Clinician Unavailable Ruben Tian MD Attending Clinician [phone] Cj Cotto MD Attending Clinician + Jakub Lewis MD Attending Clinician [phone] Albina Yañez Attending Clinician ALBINA PRICE Attending Clinician UnavailBENY Pagan Admitting Clinician Unavailable ALLEY MITCHELL Admitting Clinician Unavailable RUBEN TIAN Admitting Clinician Unavailable Ruben Tian MD Admitting Clinician [phone] Payers Payer Name Policy Type Policy Number Effective Date Expirati on Date Source [facility] [employer] [id number] 2022 00:00:00 [facility] BCBS BLUE ADVANTAGE HMO [id number] 2021 00:00:00 HIM AMBETTER FROM [facility] [id number] 2020 00:00:00 [employer]DO [employer] [id number] 2021 00:00:00 Problems Condition Name Condition Details Condition Category Status Onset Date Resolution Date Last Treatment Date Treating Clinician Comments Source Obesity (BMI 30-39.9) Obesity (BMI 30-39.9) Disease Active 08-05 00:00: 00 [facility] Epistaxis Epistaxis Disease Active 08-04 00:00: 00 [facility] VENTRICULO MEGALY, ECHOGENIC FOCUS IN HEA VENTRICULO MEGALY, ECHOGENIC FOCUS IN HEA Active [address] [place] [address] Diagnosis Active 12-24 00:00: 00 2014-12-28 10:59:00 Carey Russo Allergies, Adverse Reactions, Alerts Allergy Name Allergy Type Status Severity Reaction(s) Onset Date Inactive Date Treating Clinician Comments Source NO KNOWN ALLERGIE S Drug Class Active [facility] Social History Social Habit Start Date Stop Date Quantity Comments Source History of tobacco use Cigarette Smoker [facility] Gender identity Univ ersity [facility] of Social function 2022-12-09 00:00:00 2022-12-09 00:00:00 [facility] Exposure to SARS-CoV-2 (event) 2022-07-27 00:00:00 2022-08-06 09:08:00 Not sure [facility] Alcohol intake 2021-08-18 00:00:00 2021-08-18 00:00:00 5.14 /d [facility] Cigarette pack-years 2021-07-29 00:00:00 2021-07-29 00:00:00 [facility] Cigarettes smoked current (pack per day) - Reported 2020-09-02 00:00:00 2020-09-02 00:00:00 [facility] Tobacco use and exposure 2020-09-02 00:00:00 2020-09-02 00:00:00 Smokeless tobacco non-user [facility] Sex Assigned At 1980 00:00:00 1980 00:00:00 [facility] Smoking Status Start Date Stop Date Source Smokes tobacco daily 2020-09-02 00:00:00 [facility] Medications Ordered Medication Name Filled Medication Name Start Date Stop Date Current Medication? Ordering Clinician Indication Dosage Frequency Signature (SIG) Comments Components Source busPIRone 5 mg tablet 12-09 00:00: 00 Yes [id number] 5mg Take 1 tablet by mouth 2 (two) times daily as needed (anxiety). [facility] naproxen (NAPROSYN) tablet 500 mg 08-06 16:45: 00 08-06 15:49 :00 No 500mg 500 mg, Oral, ONCE, 1 dose, On Norma 08/06/22 at 1145, Routine [facility] naproxen (NAPROSYN) 500 mg tablet 08-06 00:00: 00 12-09 00:00 :00 No [id number] 500mg Take 1 tablet by mouth in the morning and 1 tablet in the evening. Take with meals. [facility] hydroCHLORO thiazide 25 mg tablet 04-06 00:00: 00 12-09 00:00 :00 No [id number] 25mg Take 1 tablet by mouth in the morning. [facility] ergocalcife rol, vitamin d2, 1,250 mcg (50,000 unit) capsule 2021-03 00:00: 00 12-09 00:00 :00 No [id number] Take 1 capsule by mouth weekly. [facility] amLODIPine 10 mg tablet 2021-03 2 00:00: 00 12-09 00:00 :00 No [id number] 5mg Take 0.5 tablets by mouth in the morning. [facility] hydroCHLORO thiazide 25 mg tablet 2021-03 00:00: 00 04-06 00:00 :00 No [id number] 25mg Take 1 tablet by mouth in the morning. [facility] amLODIPine 10 mg tablet 2021-03- 00:00: 00 03-03 00:00 :00 No [id number] 10mg Take 1 tablet by mouth in the morning. [facility] amLODIPine 10 mg tablet 07-29 00:00: 00 Yes [id number] 10mg Take 1 tablet by mouth daily. [facility] Immunizations Ordered Immunization Name Filled Immunization Name Date Status Comments Source Influenza Virus Vaccine Quad IM 3+ YRS 2022-01-07 00:00:00 Completed [facility] Influenza Virus Vaccine Quad IM 3+ YRS 2022-01-07 00:00:00 Completed [facility] Influenza Virus Vaccine Quad IM 3+ YRS 2022-01-07 00:00:00 Completed [facility] Influenza Virus Vaccine Quad IM 3+ YRS 2022-01-07 00:00:00 Completed [facility] Influenza Virus Vaccine Quad IM 3+ YRS 2022-01-07 00:00:00 Completed [facility] Influenza Virus Vaccine Quad IM 3+ YRS 2022-01-07 00:00:00 Completed [facility] Influenza Virus Vaccine Quad IM 3+ YRS 2022-01-07 00:00:00 Completed [facility] Influenza Virus Vaccine Quad IM 3+ YRS 2022-01-07 00:00:00 Completed [facility] Influenza Virus Vaccine Quad IM 3+ YRS 2022-01-07 00:00:00 Completed [facility] Influenza Virus Vaccine Quad IM 3+ YRS 2022-01-07 00:00:00 Completed [facility] Pneumococcal Polysaccharide, PPSV23 (PNEUMOVAX) 2021-07-29 00:00:00 Completed [facility] TDAP 2021-07-29 00:00:00 Completed [facility] Pneumococcal Polysaccharide, PPSV23 (PNEUMOVAX) 2021-07-29 00:00:00 Completed [facility] TDAP 2021-07-29 00:00:00 Completed [facility] Pneumococcal Polysaccharide, PPSV23 (PNEUMOVAX) 2021-07-29 00:00:00 Completed [facility] TDAP 2021-07-29 00:00:00 Completed [facility] Pneumococcal Polysaccharide, PPSV23 (PNEUMOVAX) 2021-07-29 00:00:00 Completed [facility] TDAP 2021-07-29 00:00:00 Completed [facility] Pneumococcal Polysaccharide, PPSV23 (PNEUMOVAX) 2021-07-29 00:00:00 Completed [facility] TDAP 2021-07-29 00:00:00 Completed [facility] Pneumococcal Polysaccharide, PPSV23 (PNEUMOVAX) 2021-07-29 00:00:00 Completed [facility] TDAP 2021-07-29 00:00:00 Completed [facility] Pneumococcal Polysaccharide, PPSV23 (PNEUMOVAX) 2021-07-29 00:00:00 Completed [facility] TDAP 2021-07-29 00:00:00 Completed [facility] Pneumococcal Polysaccharide, PPSV23 (PNEUMOVAX) 2021-07-29 00:00:00 Completed [facility] TDAP 2021-07-29 00:00:00 Completed [facility] Pneumococcal Polysaccharide, PPSV23 (PNEUMOVAX) 2021-07-29 00:00:00 Completed [facility] TDAP 2021-07-29 00:00:00 Completed [facility] Pneumococcal Polysaccharide, PPSV23 (PNEUMOVAX) 2021-07-29 00:00:00 Completed [facility] TDAP 2021-07-29 00:00:00 Completed [facility] Pneumococcal Polysaccharide, PPSV23 (PNEUMOVAX) 2021-07-29 00:00:00 Completed [facility] TDAP 2021-07-29 00:00:00 Completed [facility] Pneumococcal Polysaccharide, PPSV23 (PNEUMOVAX) 2021-07-29 00:00:00 Completed [facility] TDAP 2021-07-29 00:00:00 Completed [facility] Pneumococcal Polysaccharide, PPSV23 (PNEUMOVAX) 2021-07-29 00:00:00 Completed [facility] TDAP 2021-07-29 00:00:00 Completed [facility] SARS-COV-2 COVID-19 PFIZER VACCINE 2020-06-18 00:00:00 Completed [facility] SARS-COV-2 COVID-19 PFIZER VACCINE 2020-06-18 00:00:00 Completed [facility] SARS-COV-2 COVID-19 PFIZER VACCINE 2020-06-18 00:00:00 Completed [facility] SARS-COV-2 COVID-19 PFIZER VACCINE 2020-06-18 00:00:00 Completed [facility] SARS-COV-2 COVID-19 PFIZER VACCINE 2020-06-18 00:00:00 Completed [facility] SARS-COV-2 COVID-19 PFIZER VACCINE 2020-06-18 00:00:00 Completed [facility] SARS-COV-2 COVID-19 PFIZER VACCINE 2020-06-18 00:00:00 Completed [facility] SARS-COV-2 COVID-19 PFIZER VACCINE 2020-06-18 00:00:00 Completed [facility] SARS-COV-2 COVID-19 PFIZER VACCINE 2020-06-18 00:00:00 Completed [facility] SARS-COV-2 COVID-19 PFIZER VACCINE 2020-06-18 00:00:00 Completed [facility] SARS-COV-2 COVID-19 PFIZER VACCINE 2020-06-18 00:00:00 Completed [facility] SARS-COV-2 COVID-19 PFIZER VACCINE 2020-06-18 00:00:00 Completed [facility] SARS-COV-2 COVID-19 PFIZER VACCINE 2020-06-18 00:00:00 Completed [facility] SARS-COV-2 COVID-19 PFIZER VACCINE 2020-05-07 00:00:00 Completed [facility] SARS-COV-2 COVID-19 PFIZER VACCINE 2020-05-07 00:00:00 Completed [facility] SARS-COV-2 COVID-19 PFIZER VACCINE 2020-05-07 00:00:00 Completed [facility] SARS-COV-2 COVID-19 PFIZER VACCINE 2020-05-07 00:00:00 Completed [facility] SARS-COV-2 COVID-19 PFIZER VACCINE 2020-05-07 00:00:00 Completed [facility] SARS-COV-2 COVID-19 PFIZER VACCINE 2020-05-07 00:00:00 Completed [facility] SARS-COV-2 COVID-19 PFIZER VACCINE 2020-05-07 00:00:00 Completed [facility] SARS-COV-2 COVID-19 PFIZER VACCINE 2020-05-07 00:00:00 Completed [facility] SARS-COV-2 COVID-19 PFIZER VACCINE 2020-05-07 00:00:00 Completed [facility] SARS-COV-2 COVID-19 PFIZER VACCINE 2020-05-07 00:00:00 Completed [facility] SARS-COV-2 COVID-19 PFIZER VACCINE 2020-05-07 00:00:00 Completed [facility] SARS-COV-2 COVID-19 PFIZER VACCINE 2020-05-07 00:00:00 Completed [facility] SARS-COV-2 COVID-19 PFIZER VACCINE 2020-05-07 00:00:00 Completed [facility] Pneumococcal Polysaccharide, PPSV23 (PNEUMOVAX) Unknown Completed [facility] TDAP Unknown Completed [facility] SARS-COV-2 COVID-19 PFIZER VACCINE Unknown Completed [facility] SARS-COV-2 COVID-19 PFIZER VACCINE Unknown Completed [facility] Vital Signs Vital Name Observation Time Observation Value Comments S ource Systolic blood pressure 2022-12-09 18:06:00 121 mm[Hg] [facility] Diastolic blood pressure 2022-12-09 18:06:00 74 mm[Hg] [facility] Heart rate 2022-12-09 18:06:00 68 /min [facility] Body height 2022-12-09 18:06:00 162.6 cm [facility] Body weight 2022-12-09 18:06:00 101.56 kg [facility] BMI 2022-12-09 18:06:00 38.43 kg/m2 [facility] Oxygen saturation in Arterial blood by Pulse oximetry 2022-12-09 18:06:00 99 /min [facility] Systolic blood pressure 2022-08-06 14:09:00 136 mm[Hg] [facility] Diastolic blood pressure 2022-08-06 14:09:00 90 mm[Hg] [facility] Heart rate 2022-08-06 14:09:00 81 /min [facility] Body temperature 2022-08-06 14:09:00 36.72 Nani [facility] Respiratory rate 2022-08-06 14:09:00 16 /min [facility] Body height 2022-08-06 14:09:00 162.6 cm [facility] Body weight 2022-08-06 14:09:00 101.515 kg [facility] BMI 2022-08-06 14:09:00 38.42 kg/m2 [facility] Oxygen saturation in Arterial blood by Pulse oximetry 2022-08-06 14:09:00 100 /min [facility] Systolic blood pressure 2022-03-03 17:01:00 118 mm[Hg] [facility] Diastolic blood pressure 2022-03-03 17:01:00 80 mm[Hg] [facility] Heart rate 2022-03-03 17:01:00 86 /min [facility] Body height 2022-03-03 17:01:00 165.1 cm [facility] Body weight 2022-03-03 17:01:00 100.517 kg [facility] BMI 2022-03-03 17:01:00 36.88 kg/m2 [facility] Oxygen saturation in Arterial blood by Pulse oximetry 2022-03-03 17:01:00 100 /min [facility] Procedures Procedure Date / Time Performed Performing Clinicia n Source ASSIGNMENT OF BENEFITS 2022-12-09 18:03:12 Jovan da silva Unassigned, [place] [facility] XR CHEST 1 VW 2022-08-06 14:46:00 Beny Carr [facility] POCT TEST 2022-08-06 14:46:00 Beny Carr [facility] CONSENT/REFUSAL FOR DIAGNOSIS AND TREATMENT 2022-08-06 14:02:04 Doctor Unassigned, [place] [facility] COMP. METABOLIC PANEL ([id number]) 2022-03-04 14:40:00 Alley Mitchell [facility] ASSIGNMENT OF BENEFITS 2022-03-03 16:48:07 Jovan da silva Unassigned, [place] [facility] Encounters Start Date/Time End Date/Time Encounter Type Admission Type Attending Clinicians Care Facility Care Department Encounter ID Source 2022-12-29 16:30:00 2022-12-29 16:30:00 Outpatient ALLEY ODONNELL [facility] [id number] [facility] 2022-12-10 00:00:00 2022-12-10 00:00:00 Patient Outreach Cori Castillo [facility] 1.2.840.114 350.1.13.10 4.2.7.2.686 [id number] [facility] 2022-12-09 13:00:00 2022-12-09 13:37:34 Outpatient R CANDY ANNE [facility] [id number] [facility] 2022-12-09 13:00:00 2022-12-09 13:37:34 Office Visit Candy Anne [facility] 1.2840.114 350.1.13.10 4.2.7.2.686 [id number] [facility] 2022-12-09 00:00:00 2022-12-09 00:00:00 Orders Only Doctor Unassigned, [place] [facility] 1.2.840.114 350.1.13.10 4.2.7.2.686 [id number] [facility] 2022-10-05 08:00:00 2022-10-05 08:00:00 Outpatient MARY DOWNING [facility] [id number] [facility] 2022-09-01 15:00:00 2022-09-01 15:00:00 Outpatient BI ODONNELLTHIA [facility] [id number] [facility] 2022-08-18 14:00:00 2022-08-18 14:00:00 Outpatient MARY TALAMANTES [facility] [id number] [facility] 2022-08-06 09:11:00 2022-08-06 11:00:00 Emergency X BENY CARR [facility] ERT [id number] [facility] 2022-08-06 09:11:00 2022-08-06 11:00:00 Emergency CarrBijanya S [facility] 1..840.114 350.1.13.10 4.2.7.2.686 [id number] [facility] 2022-04-06 00:00:00 2022-04-06 00:00:00 Gabriela Mitchell [facility] 1.2.840.114 350.1.13.10 4.2.7.2.686 [id number] [facility] 2022-03-05 09:00:00 2022-03-05 09:15:00 Assistant Front Desk Manager Visit Lab, Oswaldo Mitchell [facility] 1..840.114 350.1.13.10 4.2.7.2.686 [id number] [facility] 2022-03-05 09:00:00 2022-03-05 09:00:00 Outpatient R ALLEY MITCHELL [facility] [id number] [facility] 2022-03-05 00:00:00 2022-03-05 00:00:00 Letter (Out) [facility] 1..840.114 350.1.13.10 4.2.7.2.686 [id number] [facility] 2022-03-04 08:45:00 2022-03-04 08:47:17 Assistant Front Desk Manager Visit Lab, Oswaldo Glez [facility] 1..840.114 350.1.13.10 4.2.7.2.686 [id number] [facility] 2022-03-04 08:45:00 2022-03-04 08:45:00 Outpatient R ALLEY MITCHELL [facility] [id number] [facility] 2022-03-04 00:00:00 2022-03-04 00:00:00 [facility] 1..840.114 350.1.13.10 4.2.7.2.686 [id number] [facility] 2022-03-03 11:00:00 2022-03-03 11:23:31 Outpatient R ALLEY MITCHELL [facility] [id number] [facility] 2022-03-03 11:00:00 2022-03-03 11:23:31 [facility] 1..840.114 350.1.13.10 4.2.7.2.686 [id number] [facility] 2022-03-03 00:00:00 2022-03-03 00:00:00 Orders Only Doctor Unassigned, [place] [facility] 1.2.840.114 350.1.13.10 4.2.7.2.686 [id number] [facility] 2022-02-02 00:00:00 2022-02-02 00:00:00 Telephone Alley Mitchell [facility] 1.2.840.114 350.1.13.10 4.2.7.2.686 [id number] [facility] 2021-08-27 00:00:00 2021-08-27 00:00:00 Telephone Mary Wyman [facility] 1.2.840.114 350.1.13.10 4.2.7.2.686 [id number] [facility] 2021-08-26 09:51:30 2021-08-26 23:59:00 [facility] [id number] [facility] 2021-08-26 09:51:30 2021-08-26 23:59:00 [id number] 2021-08-26 00:00:00 2021-08-26 00:00:00 Outpatient R ALLEY MITCHELL [facility] [id number] [facility] 2021-08-26 00:00:00 2021-08-26 00:00:00 [facility] 1.2.840.114 350.1.13.10 4.2.7.2.686 [id number] [facility] 2021-08-19 00:00:00 2021-08-19 00:00:00 Orders Only Doctor Unassigned, [place] [facility] 1.2840.114 350.1.13.10 4.2.7.2.686 [id number] [facility] 2021-08-18 15:00:00 2021-08-18 15:15:00 Assistant Front Desk Manager Visit 2, Adc Lab [facility] 1.2.840.114 350.1.13.10 4.2.7.2.686 [id number] [facility] 2021-08-18 14:00:00 2021-08-18 14:51:01 [facility]patient [facility] [id number] [facility] 2021-08-18 14:00:00 2021-08-18 14:51:01 Office Visit Mary Wyman [facility] 1.2.840.114 350.1.13.10 4.2.7.2.686 [id number] [facility] 2021-08-18 14:00:00 2021-08-18 14:51:01 Outpatient Nimo [facility] [id number] [facility] 2021-08-18 14:00:00 2021-08-18 14:51:01 Outpatient R [facility] [id number] [facility] 2021-08-11 08:40:00 2021-08-11 09:50:11 [facility] [id number] [facility] 2021-08-11 08:40:00 2021-08-11 09:50:11 [facility] 1.2.840.114 350.1.13.10 4.2.7.2.686 [id number] [facility] 2021-07-30 08:30:00 2021-07-30 08:45:00 Assistant Front Desk Manager Visit Lab, Oswaldo - [place] Stephen [facility] 1.2.840.114 350.1.13.10 4.2.7.2.686 [id number] [facility] 2021-07-30 08:30:00 2021-07-30 08:30:00 Outpatient R [facility] [id number] [facility] 2021-07-30 08:30:00 2021-07-30 08:30:00 [facility] [id number] [facility] 2021-07-29 13:00:00 2021-07-29 15:30:49 [facility] [id number] 2021-07-29 13:00:00 2021-07-29 13:30:00 Office Visit Bi [facility]ly [facility] 1.2.840.114 350.1.13.10 4.2.7.2.686 [id number] [facility] 2021-07-29 13:00:00 2021-07-29 13:00:00 Outpatient R STEPHENALLEY [facility] [id number] [facility] 2021-07-01 18:28:00 2021-07-01 19:13:00 Emergency X AUGUSTINE JARAMILLO [facility] ERT [id number] [facility] 2021-07-01 18:28:00 2021-07-01 19:13:00 Emergency Jaramillo, Augustine R [facility] 1.2.840.114 350.1.13.10 4.2.7.2.686 [id number] [facility] 2021-07-01 18:28:00 2021-07-01 19:13:00 Emergency X JARAMILLO, AUGUSTINE [facility] ERT [id number] [facility] 2021-07-01 00:00:00 2021-07-01 00:00:00 Orders Only Doctor Unassigned, [place] [facility] 1.2.840.114 350.1.13.10 4.2.7.2.686 [id number] [facility] 2021-06-02 00:00:00 2021-06-02 00:00:00 Telephone Bismark Chilel [facility] 1.2.840.114 350.1.13.10 4.2.7.2.686 [id number] [facility] 2021-01-24 00:00:00 2021-01-24 00:00:00 Orders Only Doctor Unassigned, [place] [facility] 1.2840.114 350.1.13.10 4.2.7.2.686 [id number] [facility] 2021-01-24 00:00:00 2021-01-24 00:00:00 Refill [place] Chilel [facility] 1.2.840.114 350.1.13.10 4.2.7.2.686 [id number] [facility] 2020-11-25 00:00:00 2020-11-25 00:00:00 Patient Secure Msg Doctor Unassigned, [place] [facility] 1.2.840.114 350.1.13.10 4.2.7.2.686 [id number] [facility] 2020-11-19 00:00:00 2020-11-19 00:00:00 [facility] [facility] 1.2.840.114 350.1.13.10 4.2.7.2.686 [id number] [facility] 2020-10-07 15:21:22 2020-10-07 15:36:22 Office Visit Bismark Chilel [facility] 1..840.114 350.1.13.10 4.2.7.2.686 [id number] [facility] 2020-10-07 15:30:00 2020-10-07 15:30:00 Outpatient Nimo CHILEL BISMARK [facility] [id number] [facility] 2020-09-10 00:00:00 2020-09-10 00:00:00 Refill Ranjana [facility] 1.2.840.114 350.1.13.10 4.2.7.2.686 [id number] [facility] 2020-09-04 00:00:00 2020-09-04 00:00:00 Telephone [facility] 1.2840.114 350.1.13.10 4.2.7.2.686 [id number] [facility] 2020-09-02 15:53:58 2020-09-02 16:52:59 Office Visit Bism[place] Chilel [facility] 1..840.114 350.1.13.10 4.2.7.2.686 [id number] [facility] 2020-09-02 15:45:00 2020-09-02 15:45:00 Outpatient Nimo TITUSEDUARD BISMARK [facility] [id number] [facility] [facility] 2020-09-02 00:00:00 2020-09-02 00:00:00 Orders Only Doctor Unassigned, [place] [facility] 1.284.114 350.1.13.10 4.2.7.2.686 [id number] [facility] 2020-08-21 00:00:00 2020-08-21 00:00:00 Telephone [facility] 1.2.840.114 350.1.13.10 4.2.7.2.686 [id number] [facility] 2020-08-20 19:30:00 2020-08-20 23:41:00 Emergency Vikas Fleming [facility] 1.2.840.114 350.1.13.10 4.2.7.2.686 [id number] [facility] 2020-08-20 19:30:00 2020-08-20 23:41:00 Emergency X VIKAS FLEMING [facility] ERT [id number] [facility] 2020-08-20 00:00:00 2020-08-20 00:00:00 Orders Only Doctor Unassigned, [place] [facility] 1.2840.114 350.1.13.10 4.2.7.2.686 [id number] [facility] 2020-08-07 00:00:00 2020-08-07 00:00:00 Transition of Care [facility] 1.2840.114 350.1.13.10 4.2.7.2.686 [id number] [facility] 2020-08-04 03:32:00 2020-08-06 16:49:00 Inpatient X RUBEN TIAN [facility] MIKE [id number] [facility] 2020-08-04 03:32:00 2020-08-06 16:49:00 Hospital Encounter AlexiBernard parsonsbruce 1.2.840.1 [id number] 3.104.2.7 .[id number] [facility] 2020-08-05 11:07:00 2020-08-05 14:38:00 Anesthesia Event Cj Cotto Michael 1.2.840.1 [id number] 3.104.2.7 [id number] [facility] 2020-08-04 00:20:00 2020-08-04 02:36:00 Emergency Albina Price [place] 1.2.840.1 [id number] 3.104.2.7 [id number] [facility] 2020-08-04 00:20:00 2020-08-04 00:20:00 Emergency X ALBINA PRICE [facility] ERT [id number] [facility] 2020-08-04 00:00:00 2020-08-04 00:00:00 Travel 1.2.840.1 [id number] 3.104.2.7 .[id number] .[id number] 1.2.840.114 350.1.13.10 4.2.7.3.698 [id number] [facility] 2020-07-14 00:00:00 2020-07-14 00:00:00 Orders Only Doctor Unassigned, [place] [facility] 1.2.840.114 350.1.13.10 4.2.7.2.686 [id number] [facility] 2020-05-07 00:00:00 2020-05-07 00:00:00 Orders Only Doctor Unassigned, [place] [facility] 1.2.840.114 350.1.13.10 4.2.7.2.686 [id number] [facility] 2014-12-28 15:52:00 2014-12-29 04:59:00 Outpatient [facility] [id number] Carey Russo Results Test Description Test Time Test Comments Results Result [facility] ([id number])2022-03-04 20:16:34* Test Item Value Reference Range Interpretation Comme nts NA (test code = 2196101267) 139 mmol/L 135-145 K (test code = 2642855158) 4.7 mmol/L 3.5-5.0 CL (test code = 3772643196) 106 mmol/L 98-108 CO2 TOTAL (test code = 7147813346) 21 mmol/L 23-31 L AGAP (test code = 0980186196) 2-16 BUN (test code = 8298172111) 18 mg/dL 7-23 GLUCOSE (test code = 9105837807) 95 mg/dL 70-110 CREATININE (test code = 5035241423) 0.60 mg/dL 0.50-1.04 TOTAL BILI (test code = 3264602346) 0.6 mg/dL 0.1-1.1 CALCIUM (test code = 9782656780) 9.3 mg/dL 8.6-10.6 T PROTEIN (test code = 8351516820) 7.4 g/dL 6.3-8.2 ALBUMIN (test code = 8829468086) 4.5 g/dL 3.5-5.0 ALK PHOS (test code = 3887964405) 90 U/L 34-122 ALTv (test code = 1742-6) 30 U/L 5-35 AST(SGOT) (test code = 9952294597) 29 U/L 13-40 eGFR (test code = 1989691970) mL/min/1.73m2 OUMOU (test code = OUMOU) Association of [...] or abnormalities in imaging tests). Lab Interpretation (test code = 10667-7) Abnormal [facility]. METABOLIC PANEL ([id number])2022-03-04 20:16:34* Test Item Value Reference Range Interpretation Comme nts NA (test code = 4311528937) 139 mmol/L 135-145 K (test code = 6313036617) 4.7 mmol/L 3.5-5.0 CL (test code = 6461960785) 106 mmol/L 98-108 CO2 TOTAL (test code = 1893167272) 21 mmol/L 23-31 L AGAP (test code = 5446362399) 2-16 BUN (test code = 6428897454) 18 mg/dL 7-23 GLUCOSE (test code = 1807486553) 95 mg/dL 70-110 CREATININE (test code = 2416413580) 0.60 mg/dL 0.50-1.04 TOTAL BILI (test code = 8397371281) 0.6 mg/dL 0.1-1.1 CALCIUM (test code = 6596843085) 9.3 mg/dL 8.6-10.6 T PROTEIN (test code = 3196911379) 7.4 g/dL 6.3-8.2 ALBUMIN (test code = 9930520626) 4.5 g/dL 3.5-5.0 ALK PHOS (test code = 9223158079) 90 U/L 34-122 ALTv (test code = 1742-6) 30 U/L 5-35 AST(SGOT) (test code = 4531978567) 29 U/L 13-40 eGFR (test code = 0189401623) mL/min/1.73m2 OUMOU (test code = OUMOU) Association of [...] or abnormalities in imaging tests). Lab Interpretation (test code = 82974-5) Abnormal [facility] Notes Date/Time Note Provider Source 2014-12-28 11:30:00 EXAM: MR EDMUND CATALAN DATE: Dec 28, 2014 01:26:00 PM CLINICAL HISTORY: Ventriculomegaly, echogenic focus in the heart, pyelectasis COMPARISON: Ultrasound report dated December 20, 2014 PROCEDURE COMMENTS: MRI was performed without contrast to evaluate the uterus and fetus. Informed consent was obtained. FINDINGS: The gestational age of the is 28 weeks 5 days by EDC of March 17, 2015 . Maternal findings: Normal. Findings of : : Bella. Placental location: Anterior Placenta previa: No Placental signal: Homogeneous. Placental thickness: 3.2 cm. Uterus: Normal. Cervix: Closed. Cervical length: 5.4 cm. Findings: position: Cephalic motion: Normal. Amniotic fluid volume: Normal Number of vessels in umbilical cord: Three Umbilical cord insertion site: Paracentral Brain: Head size: Normal. Frontal-occipital diameter: 80 mm. Sulcation: Normal. Ventricles: There is asymmetry of the lateral ventricles, with the left ventricle measuring 10 mm, which is larger than the right. The third ventricle and fourth ventricle are normal in size. Cavum septum pellucidum: Normal. Germinal matrix: Normal. Cerebral venous sinuses: Normal. Brain parenchyma signal: Normal. No diffusion abnormalities identified. Corpus callosum: Normal. Brainstem morphology: Normal. Cerebellum: Normal. Transverse cerebellar diameter: 33 mm. Cerebellar vermis: Normal. Vermis CC x AP: 15 x 11 mm. Craniocervical junction: Normal. Face/Neck: Oropharynx/cervical airway: Normal. Facial profile: Normal. Eyes/Interocular distance: Normal. Lips and nose: Normal. Mandible: Normal. Ears: Normal. Nuchal fold: Normal. Spine: Not well evaluated. Chest: Grossly unremarkable. Abdomen: Abdominal wall/soft tissues: Normal. Situs: Normal. Liver: Normal. Gallbladder: Normal. Spleen: Normal. Stomach: Normal. Small bowel: Normal. Colon: Normal. Right kidney: Normal. No pyelectasis seen. Left kidney: Normal. No pyelectasis seen. Urinary bladder: Normal. Genitalia: Female Extremities: Normal. Note: Detailed evaluation of the extremities is limited on MRI. IMPRESSION: 1. Asymmetric lateral ventricles without ventriculomegaly. 2. Otherwise normal appearance of the brain, appropriate for gestational age. [facility]"
[2024-06-25] MEDS ORDERED: LEVALBUTEROL 1.25 MG/3 ML NEB ONE (12:29)
[2024-06-25] MEDS ORDERED: METHYLPREDNISOLONE 125 MG INJ ONE (12:29)
[2024-06-25] MEDS ORDERED: KETOROLAC 30 MG/ML INJ ONE (12:30)
[2024-06-25 12:35] LABS: Absolute Basophils 0.1 K/uL (0-0.5); Absolute Eosinophils 0.1 K/uL (0-0.5); Absolute Lymphocytes (CBC) 1.9 K/uL (0.7-4.9); Absolute Monocytes 0.7 K/uL (0.1-1.3); Absolute Neutrophil 6.3 K/uL (1.8-8.0); Basophils % 0.9 % (0-1.3); Eosinophils % 1.2 % (0-4.4); Hematocrit 43.4 % (36.0-45.0); Hemoglobin 15.1 g/dL (12.0-15.0); Lymphocytes % 20.8 % (15.3-44.8); MCH 33.2 pg (27.0-35.0); MCHC 34.8 g/dL (32.0-36.0); MCV 95.6 fL (80-100); Monocytes % 7.8 % (3.3-12.3); Neutrophils % 69.3 % (41.7-73.7); Platelets 250 thou/uL (152-406); RBC Red Blood Cell Count 4.55 M/uL (3.86-4.86); Red Cell Distribution Width 13.9 % (12.1-15.2)
--- NOTE | 2024-06-25 12:46 | RAD REPORT ---
EXAM: Chest Single View HISTORY: 43 years Female CHEST PAIN COMPARISON: 01/23/2024 FINDINGS: LUNGS/PLEURA: The lungs are clear. No pleural effusions or pneumothorax. No pulmonary edema. CARDIAC/MEDIASTINUM: The cardiac silhouette is within normal limits. UPPER ABDOMEN: No significant abnormality. BONES: No acute abnormality. LINES/TUBES/OTHER: N/A IMPRESSION: No evidence of acute cardiopulmonary disease. No significant change from prior.
[2024-06-25 12:51] LABS: Anion Gap 8.6 mEq/L (5.0-15.0); Potassium 3.6 mEq/L (3.5-5.1); Troponin High Sensitivity 3.1 pg/mL (<58.9)
--- NOTE | 2024-06-25 14:01 | ER ---
Nurse's Notes [facility] Name: Jaky Mcconnell Age: 43 yrs Sex: Female : 1980 Arrival Date: 06/25/2024 Time: 12:03 Bed 5 Private MD: Diagnosis: Chest pain, unspecified;Unspecified asthma, uncomplicated;Essential (primary) hypertension Presentation: 06/25 12:23 Chief complaint: Sharp left sided chest pain x 2 hours, cough and congestion x months. hb Coronavirus screen: Client presents with at least one sign or symptom that may indicate coronavirus-19. Provider contacted for isolation considerations. Ebola Screen: No symptoms or risks identified at this time. Initial Sepsis Screen: Does the patient meet any 2 criteria? No. Patient's initial sepsis screen is negative. Does the patient have a suspected source of infection? No. Patient's initial sepsis screen is negative. Risk Assessment: Do you want to hurt yourself or someone else? Patient reports no desire to harm self or others. Onset of symptoms was June 25, 2024. 12:23 Method Of Arrival: Ambulatory hb 12:23 Acuity: JONNA 3 hb Historical: - Allergies: 12:24 Aspirin; hb - Home Meds: 12:24 None [Active]; hb - PMHx: 12:24 Hypertension; hb - PSHx: 12:24 Nose; hb - Immunization history:: Adult Immunizations up to date. - Infectious Disease History:: Denies. - Social history:: Smoking status: Patient denies any tobacco usage or history of. - Family history:: not pertinent. - Hospitalizations: : No recent hospitalization is reported. Screenin:37 [facility] ED Fall Risk Assessment (Adult) History of falling in the last 3 months, cm10 including since admission No falls in past 3 months (0 pts) Confusion or Disorientation No (0 pts) Intoxicated or Sedated No (0 pts) Impaired Gait No (0 pts) Mobility Assist Device Used No (0 pt) Altered Elimination No (0 pt) Score/Fall Risk Level 0 - 2 = Low Risk Oriented to surroundings, Maintained a safe environment, Hourly rounding (assess needs \T\ fall precautionary measures) done. Abuse screen: Denies threats or abuse. Denies injuries from another. Nutritional screening: No deficits noted. Tuberculosis screening: No symptoms or risk factors identified. Assessment: 12:38 General: Appears in no apparent distress. comfortable, Behavior is calm, cooperative. cm10 Pain: Complains of pain in chest Pain does not radiate. Pain currently is 3 out of 10 on a pain scale. Quality of pain is described as sharp, Pain began 2 hours ago. 12:38 Neuro: No deficits noted. Level of Consciousness is awake, alert, obeys commands, cm10 Oriented to person, place, time, situation, Appropriate for age. Cardiovascular: Patient's skin is warm and dry. Chest pain is described as Pain is 3 out of 10 on a pain scale. quality is sharp, began 2 hours prior to arrival. Respiratory: No deficits noted. Airway is patent Respiratory effort is even, unlabored, Respiratory pattern is regular, symmetrical, Breath sounds are clear bilaterally. Musculoskeletal: Range of motion: intact in all extremities. 14:02 Reassessment: Patient appears in no apparent distress at this time. Patient and/or cm10 family updated on plan of care and expected duration. Pain level reassessed. Patient is alert, oriented x 3, equal unlabored respirations, skin warm/dry/pink. Patient states feeling better. Patient states symptoms have improved. Vital Signs: 12:23 BP 140 / 82; Pulse 82; Resp 20; Temp 98.1; Pulse Ox 96% on R/A; Weight 104.33 kg; hb Height 5 ft. 4 in. ; Pain 3/10; 13:00 BP 150 / 86; Pulse 71; Resp 15; Pulse Ox 99% on R/A; cm10 13:30 BP 143 / 81; Pulse 64; Resp 17; Pulse Ox 95% ; cm10 14:01 BP 146 / 83; Pulse 65; Resp 17; Pulse Ox 94% ; cm10 12:23 Body Mass Index 39.48 (104.33 kg, 162.56 cm) hb 12:23 Pain Scale: Adult hb ED Course: 12:04 Patient arrived in ED. ts1 12:05 Alberto Wallace MD is Attending Physician. rn 12:12 Christine Pizarro, RYLAN is Primary Nurse. cm10 12:16 Client placed on continuous cardiac and pulse oximetry monitoring. NIBP monitoring hb applied. property assessment monitor on. Pulse ox on. NIBP on. 12:16 EKG done, by ED staff, reviewed by Alberto Wallace MD. hb 12:16 Patient maintains SpO2 saturation greater than 95% on room air. hb 12:24 Triage completed. hb 12:24 Arm band placed on. hb 12:25 Basic Metabolic Panel Sent. cm10 12:25 CBC with Diff Sent. cm10 12:25 Troponin HS Sent. cm10 12:25 COVID-19 Ag + Flu A+B Ag Sent. cm10 12:25 Initial lab(s) drawn, by me, sent to lab. Inserted saline lock: 22 gauge in right cm10 antecubital area, using aseptic technique. Blood collected. Flushed with 10 mL NS. 12:31 XRAY Chest (1 view) In Process Unspecified. EDMS 12:39 Patient has correct armband on for positive identification. Placed in gown. Bed in low cm10 position. Call light in reach. Side rails up X 1. Provided Education on: ER PROCESS AND PROCEDURES. 14:00 Alberto Wallace MD is Referral Physician. rn 14:00 Referral Physician role handed off by Alberto Wallace MD rn 14:21 No provider procedures requiring assistance completed. IV discontinued, intact, cm10 bleeding controlled, No redness/swelling at site. Pressure dressing applied. Administered Medications: 12:36 Drug: Ketorolac IVP 15 mg IVP once Route: IVP; Site: right antecubital; cm10 13:03 Follow up: Response: No adverse reaction cm10 12:37 Drug: MethylPrednisoLONE IVP 125 mg IVP once Route: IVP; Site: right antecubital; cm10 13:07 Follow up: Response: No adverse reaction cm10 12:37 Drug: Levalbuterol Inhalation 1.25 mg Inhalation once Route: Inhalation; cm10 12:54 Follow up: Response: No adverse reaction; Marked relief of symptoms cm10 Medication: 12:37 VIS not applicable for this client. cm10 Outcome: 14:00 Discharge ordered by . rn 14:21 Discharged to home ambulatory, with family, cm10 14:21 Condition: good 14:21 Discharge instructions given to patient, Instructed on discharge instructions, follow up and referral plans. medication usage, Demonstrated understanding of instructions, follow-up care, medications, Prescriptions given X 3, 14:22 Patient left the ED. cm10 Signatures: Dispatcher [employer] EDMS Alberto Wallace MD MD rn Baxter, Heather, RN RN Suzanne Hull PAS PAS ts1 Christine Pizarro RN RN cm10 Corrections: (The following items were deleted from the chart) 12:39 12:38 Pain: Complains of pain in chest Pain does not radiate. Pain currently is 3 out cm10 of 10 on a pain scale. cm10
--- NOTE | 2024-06-25 14:01 | EDPHYS ---
Physician Documentation [facility] Name: Jaky Mcconnell Age: 43 yrs Sex: Female : 1980 Arrival Date: 06/25/2024 Time: 12:03 Bed 5 Private MD: ED Physician Alberto Wallace HPI: 06/25 12:43 This 43 yrs old Black Female presents to ER via Ambulatory with complaints of Chest rn Pain. 12:43 The patient or guardian reports chest pain that is located primarily in the anterior rn chest wall, left. Onset: today. The pain does not radiate. Associated signs and symptoms: Pertinent positives: cough, shortness of breath, Pertinent negatives: abdominal pain, syncope, vomiting. The chest pain is described as sharp, stabbing. Duration: The patient or guardian reports multiple episodes, that are intermittent. Modifying factors: The symptoms are alleviated by nothing. the symptoms are aggravated by cough. Severity of pain: At its worst the pain was mild in the emergency department the pain is unchanged. Patient reports left anterior chest wall pain, worse with deep breath and cough. Reports mild shortness of breath. Noticed it when was at work and states she believes it to be secondary to stress and interactions at work. Patient reports history of asthma. No fever or chills. Does have nonproductive cough. No hemoptysis. No history of DVT or PE. No trauma. No known cardiac problems.. Historical: - Allergies: 12:24 Aspirin; hb - Home Meds: 12:24 None [Active]; hb - PMHx: 12:24 Hypertension; hb - PSHx: 12:24 Nose; hb - Immunization history:: Adult Immunizations up to date. - Infectious Disease History:: Denies. - Social history:: Smoking status: Patient denies any tobacco usage or history of. - Family history:: not pertinent. - Hospitalizations: : No recent hospitalization is reported. ROS: 12:43 Constitutional: Negative for fever, chills, and weight loss, Cardiovascular: Positive rn for left-sided chest pain Respiratory: Positive for cough and wheezing Abdomen/GI: Negative for abdominal pain, nausea, vomiting, diarrhea, and constipation, Back: Negative for injury and pain, MS/Extremity: Negative for injury and deformity, Skin: Negative for injury, rash, and discoloration, Neuro: Negative for headache, weakness, numbness, tingling, and seizure, Exam: 12:25 ECG was reviewed by the Attending Physician. rn 12:43 Constitutional: This is a well developed, well nourished patient who is awake, alert, rn and in no acute distress. Cardiovascular: Regular rate and rhythm with a normal S1 and S2. No gallops, murmurs, or rubs. No JVD. No pulse deficits. Respiratory: Diffuse wheezing, no retractions, speaking full sentences Abdomen/GI: Soft, nontender MS/ Extremity: Pulses equal, no cyanosis. Neuro: Awake and alert, GCS 15 Vital Signs: 12:23 BP 140 / 82; Pulse 82; Resp 20; Temp 98.1; Pulse Ox 96% on R/A; Weight 104.33 kg; hb Height 5 ft. 4 in. ; Pain 3/10; 13:00 BP 150 / 86; Pulse 71; Resp 15; Pulse Ox 99% on R/A; cm10 13:30 BP 143 / 81; Pulse 64; Resp 17; Pulse Ox 95% ; cm10 14:01 BP 146 / 83; Pulse 65; Resp 17; Pulse Ox 94% ; cm10 12:23 Body Mass Index 39.48 (104.33 kg, 162.56 cm) hb 12:23 Pain Scale: Adult hb MDM: 12:05 Medical Screening Exam initiated rn 12:27 ED course: . rn 13:58 Differential diagnosis: acute myocardial infarction, acute pericarditis, anxiety, chest rn wall pain, costochondritis, esophagitis, gastritis, pleurisy, pneumonia, pneumothorax. HEART Score: History: Slightly Suspicious (0), ECG: Non specific repolarization disturbance / LBTB / PM (1), Age: < or = 45 years (0), Risk Factors: 1 or 2 risk factors (1), Troponin: < or = 1 x Normal Limit (0), Total Score = 2. Data reviewed: vital signs, nurses notes, lab test result(s), EKG, radiologic studies, plain films, and as a result, I will discharge patient. Counseling: I had a detailed discussion with the patient and/or guardian regarding the historical points, exam findings, and any diagnostic results supporting the discharge/admit diagnosis, lab results, radiology results, the need for outpatient follow up, to return to the emergency department if symptoms worsen or persist or if there are any questions or concerns that arise at home. Response to treatment: the patient's symptoms have mildly improved after treatment, and as a result, I will discharge patient. Special discussion: I discussed with the patient/guardian in detail that at this point there is no indication for admission to the hospital. It is understood, however, that if the symptoms persist or worsen the patient needs to return immediately for re-evaluation. Based on the history and exam findings, there is no indication for further emergent testing or inpatient evaluation. I discussed with the patient/guardian the need to see the primary care provider for further evaluation of the symptoms. ED course: No acute findings and workup. Chest x-ray images negative for pneumonia or pneumothorax per my interpretation. ECG is unchanged from prior. ECG changes likely secondary to uncontrolled hypertension, patient states used to take amlodipine but has been off of it for some time. Patient has nebulizer machine at home but requests inhaler.. 06/25 12:18 Order name: Basic Metabolic Panel; Complete Time: 13:43 rn 06/25 12:18 Order name: CBC with Diff; Complete Time: 12: rn 06/25 12:18 Order name: Troponin HS; Complete Time: 13:43 rn 06/25 12:18 Order name: COVID-19 Ag + Flu A+B Ag rn 06/25 12:18 Order name: XRAY Chest (1 view); Complete Time: 12: rn 06/25 12:18 Order name: Cardiac monitoring; Complete Time: 12: rn 06/25 12:18 Order name: EKG - Nurse/Tech; Complete Time: 12: rn 06/25 12:18 Order name: IV Saline Lock; Complete Time: 12: rn 06/25 12:18 Order name: Labs collected and sent; Complete Time: 12: rn 06/25 12:18 Order name: O2 Per Protocol; Complete Time: 12: rn 06/25 12:18 Order name: O2 Sat Monitoring; Complete Time: 12:25 rn EC:25 Rate is 84 beats/min. Rhythm is regular. QRS [place] is Normal. HI interval is normal. QRS rn interval is normal. QT interval is normal. No Q waves. T waves are Inverted in leads II, III, aVF, V4, V5, V6. No ST changes noted. Clinical impression: NSR w/ Non-specific ST/T Changes. Interpreted by me. Reviewed by me. Administered Medications: 12:36 Drug: Ketorolac IVP 15 mg IVP once Route: IVP; Site: right antecubital; cm10 13:03 Follow up: Response: No adverse reaction cm10 12:37 Drug: MethylPrednisoLONE IVP 125 mg IVP once Route: IVP; Site: right antecubital; cm10 13:07 Follow up: Response: No adverse reaction cm10 12:37 Drug: Levalbuterol Inhalation 1.25 mg Inhalation once Route: Inhalation; cm10 12:54 Follow up: Response: No adverse reaction; Marked relief of symptoms cm10 Disposition Summary: 06/25/24 14:00 Discharge Ordered Notes: Location: Home rn Problem: new rn Symptoms: have improved rn Condition: Stable rn Diagnosis - Chest pain, unspecified rn - Unspecified asthma, uncomplicated rn - Essential (primary) hypertension rn Followup: rn - With: Private Physician - When: As needed - Reason: Recheck today's complaints, Re-evaluation by your physician Discharge Instructions: - Discharge Summary Sheet rn - Asthma, Adult rn - Nonspecific Chest Pain, Adult rn - Hypertension, Adult rn - Managing Your Hypertension rn Forms: - Medication Reconciliation Form rn - 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 - Prescription Opioid Use rn - Patient Portal Instructions rn - Leadership Thank You Letter rn - Work release form cm10 Prescriptions: - albuterol sulfate 90 mcg/actuation Inhalation Aerosol Powder, Breath Activated - administer 2 inhalation INHALATION route every 4 to 6 hours As needed as needed rn for shortness of breath or wheezing; 1 unit; Refills: 0, Product Selection Permitted - amlodipine 5 mg Oral tablet - take 1 tablet ORAL route daily; 60 tablet; Refills: 0, Product Selection rn Permitted - Prednisone 20 mg Oral Tablet - take 3 tablets ORAL route once daily for 5 days; 15 tablet; Refills: 0, Product rn Selection Permitted Signatures: Dispatcher [employer] EDMS Alberto Wallace MD MD rn Baxter, Heather, RN RN hb Martinez, Clarissa, RN RN cm10 Corrections: (The following items were deleted from the chart) 12:18 12:18 Chest Single View+[email or web address] ordered. EDMS EDMS
[2024-06-25 15:09] VITALS: TEMP 98.1
[2024-06-25 15:12] VITALS: BP 146/83; O2SAT 94
[2024-06-25 15:42] LABS: Influenza A Ag Negative; Influenza B Ag Negative; SARS-CoV-2 Antigen Rapid Res Negative (Negative)
--- NOTE | 2024-06-26 11:19 | EKG ---
Test Date: 2024-06-25 Test Time: 12:16:58 Sock Mender: HB MEASUREMENT RESULTS: Intervals: Rate: 84 IA: 132 QRSD: 76 QT: 384 QTc: 453 [place]: P: 50 IA: 132 QRS: 81 T: -63 INTERPRETIVE STATEMENTS: Normal sinus rhythm T wave abnormality, consider inferolateral ischemia Abnormal ECG Compared to ECG 12/13/2023 13:13:46 No significant changes Electronically Signed On 06-26-24 11:17:28 CDT by Vernon Rangel
== END 2024-06-25 14:22 | disposition home or self-care (01) ==
LOC: ER 12:03
DX: J45.909 Unspecified asthma, uncomplicated (principal); I10 Essential (primary) hypertension; Z11.52 Encounter for screening for COVID-19
CPT/HCPCS: 36415; 71045; 80048; 84484; 85025; 87428; 93005; 96374; 96375; 99285; J2919; J7614